=== PATIENT | female | born 1950 | race Caucasian/White ===

== ENCOUNTER 2018-02-23 13:33 | Emergency (ER) | payer BC, MEDICARE ==
[2018-02-23 13:47] VITALS: RESP 18; TEMP 98.2
--- NOTE | 2018-02-23 15:05 | US ---
EXAMINATION TYPE: US venous doppler duplex LE LT DATE OF EXAM: 02/23/2018 2:54 PM COMPARISON: US 04/19/2009 CLINICAL HISTORY: Pain, redness. Patient is currently taking blood thinners. History of DVT in left l eg 4-5 years ago per patient. Difficult exam due to small vein size and patient body habitus SIDE PERFORMED: Left TECHNIQUE: The lower extremity deep venous system is examined utilizing real time linear array sonog master with graded compression, doppler sonography and color-flow sonography. VESSELS IMAGED: External Iliac Vein (EIV) Common Femoral Vein Deep Femoral Vein Greater Saphenous Vein * Femoral Vein Popliteal Vein Small Saphenous Vein * Proximal Calf Veins (* superficial vessels) Left Leg: Positive for non-occluding DVT. There are some internal echos visualized within the left C FV, left femoral vein, and left popliteal vein. Left popliteal vein is unable to be fully compressed, however there is thready flow visualized within. Possible chronic DVT vs other IMPRESSION: Incompletely occluding left deep venous thrombosis involving the common femoral vein, le ft femoral vein, popliteal vein and extending into the proximal calf veins. Given this is incompletel y occlusive this may represent chronic thrombus however no prior imaging is available for comparison. Comparison with outside imaging would be beneficial to determine extent and location of the previous ly known left lower extremity thrombus.
--- NOTE | 2018-02-23 15:30 | ED ---
General Adult HPI - General Chief complaint: Extremity Problem,Nontraumatic Stated complaint: Left Leg Swelling Time Seen by Provider: 02/23/18 13:55 Source: patient, RN notes reviewed Mode of arrival: wheelchair Limitations: no limitations - History of Present Illness Initial comments: Patient 67-year-old female presents emergency room today with chief complaint of increased pain and redness to the left lower extremity. She states that symptoms started approximately a week ago. She states she noticed some redness around the top of the foot and ankle area and has spread up. She states more tender and painful. She denies any other complaints or symptoms at this time. Patient admits to history of DVT in this leg. She states she is on Xeralto. Patient denies any recent fever, chills, shortness of breath, chest pain, back pain, abdominal pain, nausea or vomiting, numbness or tingling, dysuria or hematuria, constipation or diarrhea, headaches or visual changes, or any other complaints. - Related Data Home Medications Medication Instructions Recorded Confirmed Albuterol Sulfate [Proair Hfa] 1 - 2 puff INHALATION RT-Q6H PRN 11/13/15 Budesonide-Formot 160-4.5 Mcg 2 puff INHALATION RT-BID 11/13/15 02/23/18 [Symbicort 160-4.5 Mcg Inhaler] Ergocalciferol [Vitamin D2] 50,000 unit PO Q15D 11/13/15 02/23/18 Furosemide [Lasix] 40 mg PO DAILY 11/13/15 02/23/18 Lisinopril [Zestril] 20 mg PO DAILY 11/13/15 02/23/18 Potassium Chloride [Klor-Con 10] 10 meq PO DAILY 11/13/15 02/23/18 Rivaroxaban [Xarelto] 20 mg PO HS 11/13/15 02/23/18 Tiotropium [place] [Spiriva] 1 cap INHALATION RT-DAILY 11/13/15 02/23/18 Levothyroxine Sodium 25 mcg PO DAILY 02/23/18 02/23/18 Levothyroxine Sodium 300 mcg PO DAILY 02/23/18 02/23/18 Simvastatin [Zocor] 20 mg PO HS 02/23/18 02/23/18 Previous Rx's Medication Instructions Recorded Cephalexin [Keflex] 500 mg PO Q12HR 10 Days cap 02/23/18 Sulfamethox-Tmp 800-160Mg [Bactrim 1 tab PO Q12HR #20 tab 02/23/18 DS 800-160 mg] Allergies Allergy/AdvReac Type Severity Reaction Status Date / Time ciprofloxacin Allergy Swelling Verified 02/23/18 13:56 tobramycin Allergy Swelling Verified 02/23/18 13:56 Review of Systems ROS Statement: Those systems with pertinent positive or pertinent negative responses have been documented in the HPI. ROS Other: All systems not noted in ROS Statement are negative. Past Medical History Past Medical History: Coronary Artery Disease (CAD), COPD, Hypertension, Thyroid Disorder Additional Past Medical History / Comment(s): dvt History of Any Multi-Drug Resistant Organisms: None Reported Past Surgical History: Orthopedic Surgery Additional Past Surgical History / Comment(s): jaw Past Psychological History: No Psychological Hx Reported Smoking Status: Never smoker Past Alcohol Use History: Rare Past Drug Use History: None Reported General Exam - General Exam Comments Initial Comments: General: The patient is awake and alert, in no distress, and does not appear acutely ill. Neck: The neck is supple, there is no tenderness or JVD. Cardiovascular: There is a regular rate and rhythm. No murmur, rub or gallop is appreciated. Respiratory: Lungs are clear to auscultation, respirations are non-labored, breath sounds are equal. No wheezes, stridor, rales, or rhonchi. Musculoskeletal: Increased redness erythema to the left lower extremity. Patient does show good range of motion. No bony tenderness on exam. Pedal pulses 2+. Strength 5/5. Neurological: A&O x 3. CN II-XII intact, There are no obvious motor or sensory deficits. Coordination appears grossly intact. Speech is normal. Skin: Increased redness erythema to the left lower extremity with increased swelling. Psychiatric: Normal mood and affect. Limitations: no limitations Course Vital Signs 02/23/18 02/23/18 13:41 15:24 Temperature 98.2 F Pulse Rate 91 72 Respiratory 18 18 Rate Blood Pressure 132/77 140/72 O2 Sat by Pulse 97 98 Oximetry Medical Decision Making - Medical Decision Making Case discussed in detail with attending physician Dr. Jacobo. Patient reexamined at this time shows no signs of distress resting comfortably. Patient 's ultrasound reviewed Shows incompletely occluding left deep venous thrombosis involving the common femoral vein, left from oral pain, popliteal vein and extending into the proximal calf veins. Given this isn't completely occlusive this may represent a chronic thrombus however no prior imaging is available for comparison. As read by the radiology Dr. Isaacs. Patient does have a history of a DVT in this leg. Case was discussed and seen by attending physician Dr. Jacobo. [place] the patient's no new DVT at this time. Currently ons were also being treated for DVT. Patient does have redness erythema to the left leg with some swelling is felt that it is infectious. Mild white count 11.6 Options were discussed with patient about admission to the hospital for further antibiotics. Patient states that she would rather try outpatient treatment. She was given doses of vagal myosin and Rocephin here in emergency room will be discharged home on Bactrim and Keflex. - Lab Data Result diagrams: 02/23/18 15:25 02/23/18 15:25 Lab Results 02/23/18 02/23/18 Range/Units 15:25 15:25 WBC 11.6 H (3.8-10.6) k/uL RBC 4.63 (3.80-5.40) m/uL Hgb 13.9 (11.4-16.0) gm/dL Hct 41.2 (34.0-46.0) % MCV 89.0 (80.0-100.0) fL MCH 30.0 (25.0-35.0) pg MCHC 33.8 (31.0-37.0) g/dL RDW 13.1 (11.5-15.5) % Plt Count 204 (150-450) k/uL Neutrophils % 75 % Lymphocytes % 16 % Monocytes % 6 % Eosinophils % 1 % Basophils % 0 % Neutrophils # 8.7 H (1.3-7.7) k/uL Lymphocytes # 1.8 (1.0-4.8) k/uL Monocytes # 0.7 (0-1.0) k/uL Eosinophils # 0.2 (0-0.7) k/uL Basophils # 0.0 (0-0.2) k/uL Sodium 143 (137-145) mmol/L Potassium 4.4 (3.5-5.1) mmol/L Chloride 103 (98-107) mmol/L Carbon Dioxide 28 (22-30) mmol/L Anion Gap 12 mmol/L BUN 13 (7-17) mg/dL Creatinine 0.70 (0.52-1.04) mg/dL Est GFR (CKD-EPI)AfAm >90 (>60 ml/min/1.73 sqM) Est GFR (CKD-EPI)NonAf >90 (>60 ml/min/1.73 sqM) Glucose 111 H (74-99) mg/dL Calcium 9.4 (8.4-10.2) mg/dL Total Bilirubin 0.6 (0.2-1.3) mg/dL AST 25 (14-36) U/L ALT 31 (9-52) U/L Alkaline Phosphatase 65 (38-126) U/L Total Protein 6.5 (6.3-8.2) g/dL Albumin 3.7 (3.5-5.0) g/dL Disposition Clinical Impression: Cellulitis, Chronic deep vein thrombosis (DVT) Disposition: HOME SELF-CARE Condition: Stable Instructions: Cellulitis (ED) Additional Instructions: Please use medication as discussed. Please follow-up with family doctor in the next 2 days of symptoms have not improved. Please return to emergency room if the symptoms increase or worsen or for any other concerns. Prescriptions: Cephalexin [Keflex] 500 mg PO Q12HR 10 Days cap Sulfamethox-Tmp 800-160Mg [Bactrim DS 800-160 mg] 1 tab PO Q12HR #20 tab Is patient prescribed a controlled substance at d/c from ED?: No Referrals: Yuriy Toscano DO [Primary Care Provider] - 1-2 days Time of Disposition: 16:42
[2018-02-23 15:43] LABS: Basophils % (A) 0 %; Eosinophils # (A) 0.2 k/uL (0-0.7); Eosinophils % (A) 1 %; HCT 41.2 % (34.0-46.0); HGB 13.9 gm/dL (11.4-16.0); Lymphocytes # (A) 1.8 k/uL (1.0-4.8); Lymphocytes % (A) 16 %; MCHC 33.8 g/dL (31.0-37.0); Mean Platelet Volume 7.4; Monocytes # (A) 0.7 k/uL (0-1.0); Monocytes % (A) 6 %; Neutrophils # (A) 8.7 k/uL (1.3-7.7); Neutrophils % (A) 75 %; Platelet Count 204 k/uL (150-450); RBC 4.63 m/uL (3.80-5.40); RDW 13.1 % (11.5-15.5); WBC 11.6 k/uL (3.8-10.6)
[2018-02-23] MEDS ORDERED: cefTRIAXone IN SWFI 1,000 MG/10 ML SYRINGE IVP STA (15:46)
[2018-02-23] MEDS ORDERED: VANCOMYCIN 1,000 MG in SODIUM CHLORIDE 0.9% 250 ML IVPB STA (15:46)
[2018-02-23] MEDS ORDERED: VANCOMYCIN 2,250 MG in SODIUM CHLORIDE 0.9% 500 ML IVPB STA (15:52)
[2018-02-23 15:57] LABS: ALT 31 U/L (9-52); AST 25 U/L (14-36); Albumin 3.7 g/dL (3.5-5.0); Alkaline Phosphatase 65 U/L (38-126); Anion Gap 12 mmol/L; Blood Urea Nitrogen 13 mg/dL (7-17); Calcium 9.4 mg/dL (8.4-10.2); Carbon Dioxide 28 mmol/L (22-30); Chloride 103 mmol/L (98-107); Glucose 111 mg/dL (74-99); Potassium 4.4 mmol/L (3.5-5.1); Sodium 143 mmol/L (137-145); Total Bilirubin 0.6 mg/dL (0.2-1.3); Total Protein 6.5 g/dL (6.3-8.2)
[2018-02-23 19:23] VITALS: BP 138/78; PULSE 80
== END 2018-02-23 19:22 | disposition home or self-care (01) ==
LOC: EC 13:33
DX: I82.512 Chronic embolism and thrombosis of left femoral vein (principal); L03.116 Cellulitis of left lower limb; J44.9 Chronic obstructive pulmonary disease, unspecified; I25.10 Atherosclerotic heart disease of native coronary artery without angina pectoris; I10 Essential (primary) hypertension; E07.9 Disorder of thyroid, unspecified; Z79.51 Long term (current) use of inhaled steroids; Z79.899 Other long term (current) drug therapy; Z88.1 Allergy status to other antibiotic agents
CPT/HCPCS: 36415; 80053; 85025; 87040; 93971; 99284; 96365; 96366 ×2; 96375; J3370; J0696

== ENCOUNTER 2018-02-28 15:48 | Inpatient (IN) | payer MEDICARE ==
[2018-02-28] MEDS ORDERED: SODIUM CHLORIDE 0.9% 1,000 ML IV STA (16:26)
[2018-02-28] MEDS ORDERED: MORPHINE SULFATE 2 MG/ML SYRINGE IV STA (16:26)
[2018-02-28] MEDS ORDERED: VANCOMYCIN IV PER PHARMACY 1 EACH MISC MISCELLANE PRN (16:26)
[2018-02-28] MEDS ORDERED: VANCOMYCIN 1,750 MG in SODIUM CHLORIDE 0.9% 250 ML IVPB ONE (16:45)
[2018-02-28 16:50] LABS: Basophils # (A) 0.1 k/uL (0-0.2); Basophils % (A) 1 %; Eosinophils # (A) 0.2 k/uL (0-0.7); Eosinophils % (A) 2 %; HCT 45.3 % (34.0-46.0); HGB 15.1 gm/dL (11.4-16.0); Lymphocytes # (A) 1.7 k/uL (1.0-4.8); Lymphocytes % (A) 20 %; MCH 30.2 pg (25.0-35.0); MCHC 33.4 g/dL (31.0-37.0); MCV 90.5 fL (80.0-100.0); Mean Platelet Volume 6.8; Monocytes # (A) 0.5 k/uL (0-1.0); Monocytes % (A) 6 %; Neutrophils # (A) 5.9 k/uL (1.3-7.7); Neutrophils % (A) 68 %; Platelet Count 255 k/uL (150-450); RBC 5.01 m/uL (3.80-5.40); RDW 13.7 % (11.5-15.5); WBC 8.7 k/uL (3.8-10.6)
[2018-02-28 17:01] LABS: Albumin 3.9 g/dL (3.5-5.0); Calcium 9.8 mg/dL (8.4-10.2); INR 1.2 (<1.2); Phosphorus 4.7 mg/dL (2.5-4.5); Potassium 5.3 mmol/L (3.5-5.1); Prothrombin Time 11.2 sec (9.0-12.0); Total Bilirubin 0.5 mg/dL (0.2-1.3); Total Protein 6.9 g/dL (6.3-8.2)
[2018-02-28 17:08] LABS: Creatine Kinase 31 U/L (30-135)
--- NOTE | 2018-02-28 17:15 | XR ---
EXAMINATION TYPE: XR tibia fibula LT DATE OF EXAM: 02/28/2018 COMPARISON: NONE HISTORY: Pain and redness TECHNIQUE: 4 views FINDINGS: There is mild spurring at the knee joint. There is subcutaneous edema around the lower leg. I see no fracture nor dislocation. There are some vascular calcification. IMPRESSION: Subcutaneous edema. No fracture seen. No evidence of osteomyelitis.
--- NOTE | 2018-02-28 17:19 | ED ---
General Adult HPI - General Chief complaint: Recheck/Abnormal Lab/Rx Stated complaint: Cellulitis Time Seen by Provider: 02/28/18 16:16 Source: patient, RN notes reviewed, old records reviewed Mode of arrival: wheelchair Limitations: physical limitation - History of Present Illness Initial comments: This is a 67-year-old female to the ER for evaluation. States she presents for evaluation regarding leg pain. Left leg pain. Patient has known chronic DVT left leg, on anticoagulation. Patient also admits to cellulitis, cellulitis times one week, she is on 2 antibiotics and an outpatient basis and states symptoms are worsening Leg swelling is progress and upper leg. - Related Data Home Medications Medication Instructions Recorded Confirmed Albuterol Sulfate [Proair Hfa] 1 - 2 puff INHALATION RT-Q6H PRN 11/13/15 Budesonide-Formot 160-4.5 Mcg 2 puff INHALATION RT-BID 11/13/15 02/28/18 [Symbicort 160-4.5 Mcg Inhaler] Ergocalciferol [Vitamin D2] 50,000 unit PO Q15D 11/13/15 02/28/18 Furosemide [Lasix] 40 mg PO DAILY 11/13/15 02/28/18 Lisinopril [Zestril] 20 mg PO DAILY 11/13/15 02/28/18 Potassium Chloride [Klor-Con 10] 10 meq PO DAILY 11/13/15 02/28/18 Rivaroxaban [Xarelto] 20 mg PO DAILY 11/13/15 02/28/18 Tiotropium [place] [Spiriva] 1 cap INHALATION RT-DAILY 11/13/15 02/28/18 Levothyroxine Sodium 25 mcg PO DAILY 02/23/18 02/28/18 Levothyroxine Sodium 300 mcg PO DAILY 02/23/18 02/28/18 Simvastatin [Zocor] 20 mg PO HS 02/23/18 02/28/18 Previous Rx's Medication Instructions Recorded Cephalexin [Keflex] 500 mg PO Q12HR 10 Days cap 02/23/18 Sulfamethox-Tmp 800-160Mg [Bactrim 1 tab PO Q12HR #20 tab 02/23/18 DS 800-160 mg] Allergies Allergy/AdvReac Type Severity Reaction Status Date / Time ciprofloxacin Allergy Swelling Verified 02/28/18 16:28 tobramycin Allergy Swelling Verified 02/28/18 16:28 Review of Systems ROS Statement: Those systems with pertinent positive or pertinent negative responses have been documented in the HPI. ROS Other: All systems not noted in ROS Statement are negative. Past Medical History Past Medical History: Coronary Artery Disease (CAD), COPD, Hypertension, Thyroid Disorder Additional Past Medical History / Comment(s): dvt History of Any Multi-Drug Resistant Organisms: None Reported Past Surgical History: Orthopedic Surgery Additional Past Surgical History / Comment(s): jaw Past Psychological History: No Psychological Hx Reported Smoking Status: Never smoker Past Alcohol Use History: Occasional Past Drug Use History: None Reported General Exam Limitations: physical limitation General appearance: alert, in no apparent distress Head exam: Present: atraumatic, normocephalic, normal inspection Eye exam: Present: normal appearance, PERRL, EOMI. Absent: scleral icterus, conjunctival injection, periorbital swelling ENT exam: Present: normal exam, mucous membranes moist Neck exam: Present: normal inspection. Absent: tenderness, meningismus, lymphadenopathy Respiratory exam: Present: normal lung sounds bilaterally. Absent: respiratory distress, wheezes, rales, rhonchi, stridor Cardiovascular Exam: Present: regular rate, normal rhythm, normal heart sounds. Absent: systolic murmur, diastolic murmur, rubs, gallop, clicks GI/Abdominal exam: Present: soft, normal bowel sounds. Absent: distended, tenderness, guarding, rebound, rigid Extremities exam: Present: normal inspection, full ROM, normal capillary refill , other (Left lower extremity edema erythema and cellulitis). Absent: tenderness, pedal edema, joint swelling, calf tenderness Back exam: Present: normal inspection Neurological exam: Present: alert, oriented X3, CN II-XII intact Psychiatric exam: Present: normal affect, normal mood Skin exam: Present: warm, dry, intact, normal color. Absent: rash Course Vital Signs 02/28/18 02/28/18 16:05 17:16 Temperature 98.3 F Pulse Rate 73 66 Respiratory 18 18 Rate Blood Pressure 138/77 141/60 O2 Sat by Pulse 97 99 Oximetry - Reevaluation(s) Reevaluation #1: 02/28/18 17:59 Medical record and ER visits including outpatient antibiotics are reviewed EKG Findings - EKG Comments: EKG Findings:: EKG shows normal sinus rhythm rate of 64, TN 146, QRS 74, QTc 412 Medical Decision Making - Medical Decision Making Male the ER for evaluation. Patient does say for evaluation regarding left lower extremity pain edema and erythema. Patient is on outpatient antibiotics to antibiotics Bactrim and Keflex times a week. No improvement - Lab Data Result diagrams: 02/28/18 16:40 02/28/18 16:40 Lab Results 02/28/18 02/28/18 02/28/18 Range/Units 16:40 16:40 16:40 WBC 8.7 (3.8-10.6) k/uL RBC 5.01 (3.80-5.40) m/uL Hgb 15.1 (11.4-16.0) gm/dL Hct 45.3 (34.0-46.0) % MCV 90.5 (80.0-100.0) fL MCH 30.2 (25.0-35.0) pg MCHC 33.4 (31.0-37.0) g/dL RDW 13.7 (11.5-15.5) % Plt Count 255 (150-450) k/uL Neutrophils % 68 % Lymphocytes % 20 % Monocytes % 6 % Eosinophils % 2 % Basophils % 1 % Neutrophils # 5.9 (1.3-7.7) k/uL Lymphocytes # 1.7 (1.0-4.8) k/uL Monocytes # 0.5 (0-1.0) k/uL Eosinophils # 0.2 (0-0.7) k/uL Basophils # 0.1 (0-0.2) k/uL PT (9.0-12.0) sec INR (<1.2) APTT (22.0-30.0) sec Sodium 140 (137-145) mmol/L Potassium 5.3 H (3.5-5.1) mmol/L Chloride 108 H (98-107) mmol/L Carbon Dioxide 21 L (22-30) mmol/L Anion Gap 11 mmol/L BUN 19 H (7-17) mg/dL Creatinine 1.00 (0.52-1.04) mg/dL Est GFR (CKD-EPI)AfAm 69 (>60 ml/min/1.73 sqM) Est GFR (CKD-EPI)NonAf 60 (>60 ml/min/1.73 sqM) Glucose 96 (74-99) mg/dL Calcium 9.8 (8.4-10.2) mg/dL Phosphorus 4.7 H (2.5-4.5) mg/dL Magnesium 2.0 (1.6-2.3) mg/dL Total Bilirubin 0.5 (0.2-1.3) mg/dL AST 20 (14-36) U/L ALT 30 (9-52) U/L Alkaline Phosphatase 79 (38-126) U/L Total Creatine Kinase 31 (30-135) U/L CK-MB (CK-2) 0.6 (0.0-2.4) ng/mL CK-MB (CK-2) Rel Index 1.9 Troponin I <0.012 (0.000-0.034) ng/mL Total Protein 6.9 (6.3-8.2) g/dL Albumin 3.9 (3.5-5.0) g/dL 02/28/18 Range/Units 16:40 WBC (3.8-10.6) k/uL RBC (3.80-5.40) m/uL Hgb (11.4-16.0) gm/dL Hct (34.0-46.0) % MCV (80.0-100.0) fL MCH (25.0-35.0) pg MCHC (31.0-37.0) g/dL RDW (11.5-15.5) % Plt Count (150-450) k/uL Neutrophils % % Lymphocytes % % Monocytes % % Eosinophils % % Basophils % % Neutrophils # (1.3-7.7) k/uL Lymphocytes # (1.0-4.8) k/uL Monocytes # (0-1.0) k/uL Eosinophils # (0-0.7) k/uL Basophils # (0-0.2) k/uL PT 11.2 (9.0-12.0) sec INR 1.2 H (<1.2) APTT 26.0 (22.0-30.0) sec Sodium (137-145) mmol/L Potassium (3.5-5.1) mmol/L Chloride (98-107) mmol/L Carbon Dioxide (22-30) mmol/L Anion Gap mmol/L BUN (7-17) mg/dL Creatinine (0.52-1.04) mg/dL Est GFR (CKD-EPI)AfAm (>60 ml/min/1.73 sqM) Est GFR (CKD-EPI)NonAf (>60 ml/min/1.73 sqM) Glucose (74-99) mg/dL Calcium (8.4-10.2) mg/dL Phosphorus (2.5-4.5) mg/dL Magnesium (1.6-2.3) mg/dL Total Bilirubin (0.2-1.3) mg/dL AST (14-36) U/L ALT (9-52) U/L Alkaline Phosphatase (38-126) U/L Total Creatine Kinase (30-135) U/L CK-MB (CK-2) (0.0-2.4) ng/mL CK-MB (CK-2) Rel Index Troponin I (0.000-0.034) ng/mL Total Protein (6.3-8.2) g/dL Albumin (3.5-5.0) g/dL - Radiology Data Radiology results: report reviewed (X-ray left lower Shorty negative), image reviewed Disposition Clinical Impression: Cellulitis, Failure of outpatient treatment Disposition: ADMITTED IP TO THIS HOSP Condition: Fair Is patient prescribed a controlled substance at d/c from ED?: No Referrals: Yuriy Toscano DO [Primary Care Provider] - 1-2 days
[2018-02-28 17:20] LABS: Creatine Kinase MB 0.6 ng/mL (0.0-2.4); Troponin I <0.012 ng/mL (0.000-0.034)
[2018-02-28] MEDS ORDERED: MORPHINE SULFATE 2 MG/ML SYRINGE IVP PRN (20:32)
[2018-02-28] MEDS ORDERED: ALBUTEROL NEBULIZED 2.5 MG/3 ML INHALATION PRN (23:16)
[2018-02-28] MEDS ORDERED: ACETAMINOPHEN TAB 325 MG TAB PO PRN (23:22)
[2018-02-28] MEDS ORDERED: ATORVASTATIN 10 MG TAB PO SCH (23:30)
[2018-03-01] MEDS: LEVOTHYROXINE 100 MCG TAB PO SCH (06:21)
[2018-03-01] MEDS: LEVOTHYROXINE 25 MCG TAB PO SCH (06:21)
[2018-03-01] MEDS: IPRATROPIUM 0.5 MG/2.5 ML NEBU INHALATION SCH ×4 (08:10→19:56)
[2018-03-01] MEDS: SYMBICORT 160-4.5 MCG INHALER INHALATION SCH ×2 (08:10→19:56)
[2018-03-01] MEDS: LISINOPRIL 20 MG TAB PO SCH (08:18)
[2018-03-01] MEDS: FUROSEMIDE 40 MG TAB PO SCH (08:18)
[2018-03-01] MEDS: RIVAROXABAN 20 MG TAB PO SCH (08:18)
[2018-03-01] MEDS: POTASSIUM CHLORIDE ER 10 MEQ TAB.ER.PRT PO SCH (08:18)
[2018-03-01] MEDS ORDERED: VANCOMYCIN 1,750 MG in SODIUM CHLORIDE 0.9% 250 ML IVPB SCH (09:00)
[2018-03-01] MEDS: FAMOTIDINE 20 MG TAB PO SCH ×2 (16:50→21:46)
[2018-03-01] MEDS: NAPROXEN 250 MG TAB PO SCH ×2 (16:50→21:46)
[2018-03-01] MEDS: LACTATED RINGERS 1,000 ML IV SCH (17:03)
[2018-03-01] MEDS: CLINDAMYCIN 300 MG in DEXTROSE 5% IN WATER 50 ML IVPB SCH ×2 (17:04)
--- NOTE | 2018-03-01 17:29 | HP ---
HISTORY AND PHYSICAL DATE OF ADMISSION: 02/28/2018. DATE OF SERVICE: 03/01/2018 PRESENTING COMPLAINT: Left leg pain. HISTORY OF PRESENTING COMPLAINT: This is a 67-year-old patient who follows with Dr. Toscano. Chronic stable medical conditions include coronary artery disease, COPD, hyperlipidemia, hypertension and chronic DVT in left lower extremity. For 2 weeks, the patient has been having increasing pain in the left leg and patient did present to the ER on 02/23/2018. The patient was found to have some chronic DVT, not inclusive, and it was decided to send the patient home with some antibiotic and continue on Xarelto. The patient returns still having pain in the left leg and she states she is having some trouble walking. There is pain, swelling and redness. No fever or chills. REVIEW OF SYSTEMS: CONSTITUTIONAL: None. HEENT: None. RESPIRATORY: None. CARDIOVASCULAR: None. GASTROINTESTINAL: None. GENITOURINARY: None. MUSCULOSKELETAL: None DERMATOLOGICAL: Some redness just above the left ankle. HEMATOLOGIC: None. LYMPHATICS: None. PSYCHIATRY: None. NEUROLOGICAL: None. PAST MEDICAL HISTORY: Coronary artery disease, COPD, hyperlipidemia, hypertension, DVT, hypothyroid. 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 SOCIAL HISTORY: Patient smoked a pack a day for 48 years, stopped 2 years ago. Alcohol occasionally. Lives with her brother. FAMILY HISTORY: Father of suicide. HOME MEDICATIONS: 1. Spiriva 1 capsule inhalation daily. 2. Bactrim DS 1 tablet p.o. q.12. 3. Zocor 20 mg q.h.s. 4. Xarelto 20 mg p.o. daily. 5. Potassium 10 mEq p.o. daily. 6. Zestril 20 mg p.o. daily. 7. Levothyroxine 325 p.o. daily. 8. Lasix 40 mg p.o. daily. 9. Vitamin D2 50,000 units every 15 days. 10.Keflex 500 mg q.12h. 11.Symbicort 160/4.5, 2 puffs b.i.d. 12.Albuterol 1-2 puffs every 6 hours p.r.n. ALLERGIES: To CIPRO and TOBRAMYCIN. EXAMINATION: Temperature 97.6, pulse 72, respirations 16, blood pressure 132/52, pulse ox 98% on 2L. GENERAL APPEARANCE: Average built, sitting up, not in distress. EYES: Pupils equal. Conjunctivae normal. HEENT: External appearance of nose and ears normal. Oral cavity normal. NECK: JVD not raised. Mass not palpable. RESPIRATORY: Effort normal. LUNGS: Decreased breath sounds. CARDIOVASCULAR: First and second sounds normal. Minimal edema. ABDOMEN: Distended, soft. Liver and spleen not palpable. LYMPHATIC: No lymph nodes palpable in neck or axillae. PSYCHIATRY: Alert and oriented x3. Mood and affect normal. NEUROLOGICAL: Pupils equal. Cranial nerves grossly intact. Power and sensation grossly intact. EXTREMITIES: Left ankle is slightly swollen compared to the right. There is some area of redness and tenderness around the left ankle area and just above that. INVESTIGATIONS: White count 8.7, hemoglobin 15.1. Potassium 5.3, BUN 19, creatinine 1.0. The patient's Doppler ultrasound from 02/23/2018 shows positive for nonoccluding DVT and left common femoral, femoral vein, left popliteal vein. ASSESSMENT: 1. Acute cellulitis of the left ankle. 2. Chronic deep venous thrombosis, left lower extremity, for which patient is on Xarelto. 3. Coronary artery disease. 4. Chronic obstructive pulmonary disease in an ex-smoker. 5. Hyperlipidemia. 6. Essential hypertension. 7. Hypothyroidism. PLAN: Patient will be started on IV clindamycin. Will give Silvadene cream with Kerlix and Gume wrap to the left ankle. The patient also may have secondary tendon dysfunction in the area. Will use a short course of NSAIDs with GI protection of any anti- inflammatory affect. Care was discussed with the patient. Questions were answered. MMODL / IJN: [id number] /
[2018-03-01] MEDS: ATORVASTATIN 10 MG TAB PO SCH (21:46)
[2018-03-02] MEDS: CLINDAMYCIN 300 MG in DEXTROSE 5% IN WATER 50 ML IVPB SCH ×10 (00:10→23:31)
[2018-03-02] MEDS: LEVOTHYROXINE 100 MCG TAB PO SCH (06:09)
[2018-03-02] MEDS: LEVOTHYROXINE 25 MCG TAB PO SCH (06:09)
[2018-03-02] MEDS: FAMOTIDINE 20 MG TAB PO SCH ×2 (08:01→20:38)
[2018-03-02] MEDS: LISINOPRIL 20 MG TAB PO SCH (08:02)
[2018-03-02] MEDS: POTASSIUM CHLORIDE ER 10 MEQ TAB.ER.PRT PO SCH (08:02)
[2018-03-02] MEDS: RIVAROXABAN 20 MG TAB PO SCH (08:02)
[2018-03-02] MEDS: FUROSEMIDE 40 MG TAB PO SCH (08:02)
[2018-03-02] MEDS: NAPROXEN 250 MG TAB PO SCH ×3 (08:02→20:38)
[2018-03-02] MEDS: IPRATROPIUM 0.5 MG/2.5 ML NEBU INHALATION SCH ×4 (08:21→19:30)
[2018-03-02] MEDS: SYMBICORT 160-4.5 MCG INHALER INHALATION SCH ×2 (08:21→19:30)
[2018-03-02] MEDS: LACTATED RINGERS 1,000 ML IV SCH (12:34)
--- NOTE | 2018-03-02 19:48 | PN ---
PROGRESS NOTE DATE OF SERVICE: 03/02/18 PRESENTING COMPLAINT: Acute left ankle cellulitis. INTERVAL HISTORY: This patient presented with acute left ankle cellulitis and possibly tendon dysfunction, getting antibiotics. Gume wrap in place. Feeling better. REVIEW OF SYSTEMS: Done for constitutional, cardiovascular, GI, pulmonary; relevant findings as above. CURRENT MEDICATIONS: Reviewed that include IV clindamycin. PHYSICAL EXAMINATION: Temperature 97, pulse 66, respiratory 18, blood pressure 135/69, pulse ox 95% on room air. GENERAL APPEARANCE: Lying in bed, comfortable. EYES: Pupils equal. Conjunctivae normal. HEENT: External appearance of nose and ears normal. Oral cavity normal. NECK: JVD not raised. Mass not palpable. RESPIRATORY: Effort normal. Lungs, decreased breath sounds. CARDIOVASCULAR: First and second sounds, no edema. ABDOMEN: Soft, nontender. Liver and spleen not palpable. EXTREMITIES: Left ankle in a dressing. INVESTIGATIONS: No blood work from today. ASSESSMENT: 1. Acute cellulitis left ankle. 2. Chronic deep venous thrombosis left lower extremity for which patient is chronically on Xarelto. 3. Coronary artery disease. 4. Chronic obstructive pulmonary disease in an ex-smoker. 5. Hyperlipidemia. 6. Essential hypertension. 7. Hypothyroidism. PLAN: Continue current medication and treatment plan. The patient seems to be feeling better. Hoping patient can go home tomorrow. Encourage the patient to ambulate. MMODL / IJN: [id number] /
[2018-03-02] MEDS: ATORVASTATIN 10 MG TAB PO SCH (20:38)
[2018-03-03] MEDS: LEVOTHYROXINE 100 MCG TAB PO SCH (05:59)
[2018-03-03] MEDS: LEVOTHYROXINE 25 MCG TAB PO SCH (05:59)
[2018-03-03] MEDS: CLINDAMYCIN 300 MG in DEXTROSE 5% IN WATER 50 ML IVPB SCH ×4 (06:03→12:13)
[2018-03-03] MEDS: SYMBICORT 160-4.5 MCG INHALER INHALATION SCH ×2 (07:35→19:43)
[2018-03-03] MEDS: IPRATROPIUM 0.5 MG/2.5 ML NEBU INHALATION SCH ×4 (07:36→19:42)
[2018-03-03 08:42] LABS: Basophils # (A) 0.1 k/uL (0-0.2); Basophils % (A) 1 %; Eosinophils # (A) 0.2 k/uL (0-0.7); Eosinophils % (A) 4 %; HCT 40.9 % (34.0-46.0); HGB 13.5 gm/dL (11.4-16.0); Lymphocytes # (A) 1.5 k/uL (1.0-4.8); Lymphocytes % (A) 25 %; MCH 29.9 pg (25.0-35.0); MCHC 32.9 g/dL (31.0-37.0); Mean Platelet Volume 6.7; Monocytes # (A) 0.3 k/uL (0-1.0); Monocytes % (A) 4 %; Neutrophils # (A) 3.7 k/uL (1.3-7.7); Neutrophils % (A) 63 %; Platelet Count 195 k/uL (150-450); RDW 13.8 % (11.5-15.5)
[2018-03-03] MEDS: NAPROXEN 250 MG TAB PO SCH ×3 (08:53→20:23)
[2018-03-03] MEDS: FAMOTIDINE 20 MG TAB PO SCH ×2 (08:53→20:23)
[2018-03-03] MEDS: FUROSEMIDE 40 MG TAB PO SCH (08:55)
[2018-03-03] MEDS: RIVAROXABAN 20 MG TAB PO SCH (08:55)
[2018-03-03] MEDS: LISINOPRIL 20 MG TAB PO SCH (08:55)
[2018-03-03] MEDS: POTASSIUM CHLORIDE ER 10 MEQ TAB.ER.PRT PO SCH (08:55)
[2018-03-03 08:56] LABS: Calcium 9.7 mg/dL (8.4-10.2); Potassium 4.8 mmol/L (3.5-5.1)
[2018-03-03] MEDS: LACTATED RINGERS 1,000 ML IV SCH (09:33)
[2018-03-03] MEDS ORDERED: VANCOMYCIN IV PER PHARMACY 1 EACH MISC MISCELLANE PRN (13:29)
[2018-03-03] MEDS ORDERED: VANCOMYCIN 1,250 MG in SODIUM CHLORIDE 0.9% 250 ML IVPB STA (13:30)
[2018-03-03] MEDS: VANCOMYCIN 1,750 MG in SODIUM CHLORIDE 0.9% 250 ML IVPB SCH (14:47)
--- NOTE | 2018-03-03 14:53 | P.PN ---
Subjective Progress Note Date: 03/03/18 Progress note being dictated for Dr. Khan. This is a 67-year-old female admitted with possible cellulitis left lower extremity, with history of DVT of the affected extremity and multiple other medical issues. Patient states on admission extremity was hot to touch; but not now. Patient states she had been on both Keflex and Bactrim DS 6 days prior to admission, without improvement. Complains of left heel heel pain with weight bearing. Currently maintained on Cleocin .Denies chest pain, palpitations or increasing shortness of breath.Afebrile. Objective - Vital Signs Vital signs: Vital Signs Temp 98.0 F 03/03/18 13:43 Pulse 101 H 03/03/18 13:43 Resp 20 03/03/18 13:43 BP 98/64 03/03/18 13:43 Pulse Ox 96 03/03/18 13:43 Intake & Output 03/02/18 03/03/18 03/03/18 18:59 06:59 18:59 Intake Total 500 50 Output Total 200 Balance 500 -150 Intake: Intake, IV Titration 50 Amount Clindamycin 300 mg In 50 Dextrose 5% in Water 50 ml @ 100 mls/hr IVPB Q6HR [facility] Rx#:[id number] Oral 500 Output: Urine 200 Other: # Voids 2 2 3 - Exam PHYSICAL EXAM: VITAL SIGNS: As above GENERAL: Sitting up in bed, no acute distress HEENT: Conjunctivae normal. eyes normal. Oral mucosa moist NECK: No JVD. No thyroid enlargement. No LNs CARDIOVASCULAR: S1, S2 muffled. No murmur RESPIRATION: Breath sounds diminished in the bases. No rhonchi or crackles. No bronchial breathing. ABDOMEN: Soft, nontender . No guarding. no masses palpable. Bowel sounds heard. LEGS: Bilateral lower extremity pigmentation discoloration, purplish with left lower extremity increased redness, edema, tenderness-not hot to touch PSYCHIATRY: Alert and oriented -3, mood and affect normal. NERVOUS SYSTEM: Cranial N 2-12 grossly normal. Moves all 4 limbs. Diffuse weakness No focal deficits. Lymphatic system. No LN neck axilla or groin. - Labs CBC & Chem 7: 03/03/18 08:08 03/03/18 08:08 Labs: Abnormal Lab Results - Last 24 Hours (Table) 03/03/18 Range/Units 08:08 BUN 22 H (7-17) mg/dL Glucose 111 H (74-99) mg/dL Microbiology - Last 24 Hours (Table) 02/28/18 16:40 Blood Culture - Preliminary Blood No Growth after 48 hours Assessment and Plan Assessment: 1. Possible acute left lower extremity cellulitis, failed outpatient treatment. 2. Chronic DVT of left lower extremity, on Xarelto 3. Chronic vascular disease 4. COPD 5. History of nicotine dependence 6. Essential hypertension 7. Hypothyroidism Plan: Continue current medication regime ,monitoring and symptomatic treatment. As mentioned above changed antibiotics, discontinued clindamycin and initiated vancomycin. Infectious disease consulted. The impression and plan of care has been dictated as directed. : I performed a history and examination of this patient, discussed the same with the dictator. I agree with the dictator's note ,documented as a scribe. Any additional findings or plans will be noted.
[2018-03-03] MEDS: ATORVASTATIN 10 MG TAB PO SCH (20:23)
[2018-03-04] MEDS: VANCOMYCIN 1,750 MG in SODIUM CHLORIDE 0.9% 250 ML IVPB SCH ×2 (05:48→21:29)
[2018-03-04] MEDS: LEVOTHYROXINE 100 MCG TAB PO SCH (05:51)
[2018-03-04] MEDS: LACTATED RINGERS 1,000 ML IV SCH ×2 (05:51→14:24)
[2018-03-04] MEDS: LEVOTHYROXINE 25 MCG TAB PO SCH (05:51)
[2018-03-04] MEDS: IPRATROPIUM 0.5 MG/2.5 ML NEBU INHALATION SCH ×4 (07:42→20:41)
[2018-03-04] MEDS: SYMBICORT 160-4.5 MCG INHALER INHALATION SCH ×2 (07:43→20:41)
[2018-03-04] MEDS: NAPROXEN 250 MG TAB PO SCH ×3 (09:21→21:28)
[2018-03-04] MEDS: FAMOTIDINE 20 MG TAB PO SCH ×2 (09:22→21:28)
[2018-03-04] MEDS: FUROSEMIDE 40 MG TAB PO SCH (09:23)
[2018-03-04] MEDS: POTASSIUM CHLORIDE ER 10 MEQ TAB.ER.PRT PO SCH (09:23)
[2018-03-04] MEDS: RIVAROXABAN 20 MG TAB PO SCH (09:23)
[2018-03-04] MEDS: LISINOPRIL 20 MG TAB PO SCH (09:23)
[2018-03-04 11:19] LABS: Anion Gap 9 mmol/L; Blood Urea Nitrogen 25 mg/dL (7-17); Calcium 9.4 mg/dL (8.4-10.2); Carbon Dioxide 28 mmol/L (22-30); Chloride 105 mmol/L (98-107); Glucose 108 mg/dL (74-99); Potassium 4.5 mmol/L (3.5-5.1); Sodium 142 mmol/L (137-145)
--- NOTE | 2018-03-04 16:59 | CONS ---
CONSULTATION DATE OF SERVICE: 03/04/2018 REASON FOR CONSULTATION: Left leg cellulitis. HISTORY OF PRESENT ILLNESS: The patient is a 67-year-old female who apparently has been dealing with left leg swelling and redness that has been going on for almost 2 weeks now. The patient previously presented to the [facility] ER about a week ago, when the patient was evaluated and diagnosed with cellulitis. The patient was treated with Bactrim DS and Keflex. The patient took antibiotics for about 4 days, did not have any improvement; hence she came back for the same evaluation, where apparently the patient says she did have some x-rays done and was told everything was normal and was to continue with the antibiotic. The patient had persistent symptoms and hence she presented back to the ER on 02/28/2018. At that time the patient was evaluated. She did have an x-ray which showed some subcutaneous edema, but no evidence of any fracture or osteomyelitis. She was diagnosed with cellulitis this admission and admitted to hospital. She was started on clindamycin. However, the patient was noticed to have persistent swelling and redness yesterday. That prompted the antibiotic to be switched over to vancomycin, Pharmacy to dose, and Infectious Disease was consulted for further recommendation regarding antibiotic therapy. As of this morning, the patient has been afebrile. The patient denies having any chest pain or shortness of breath or any cough. No abdominal pain or any diarrhea. Pain to the left leg is more of a dull aching pain, about 5/10, and no radiation. Currently with no skin breakdown or any drainage. REVIEW OF SYSTEMS: CONSTITUTIONAL: Positive for weakness. Some chills but no high-grade fever has been recorded. EYES: No complaint. ENT: No complaint. RESPIRATORY: Some shortness of breath but no cough. CARDIOVASCULAR: No complaint. GENITOURINARY: No complaint. GASTROINTESTINAL: No complaint. MUSCULOSKELETAL: As per HPI. INTEGUMENTARY: As per HPI. PSYCHOLOGICAL: No complaint. ENDOCRINE: No complaint. NEUROLOGICAL: No complaint. PAST MEDICAL HISTORY: 1. Coronary artery disease. 2. COPD. 3. Hypertension. 4. Hypothyroidism. PAST SURGICAL HISTORY: Orthopedic surgery to the jaw. SOCIAL HISTORY: No history of smoking. Occasionally drinks. No drug use. FAMILY HISTORY: No pertinent findings noticed. ALLERGIES: CIPROFLOXACIN and TOBRAMYCIN. CURRENT MEDICATIONS: 1. Tylenol. 2. Ventolin. 3. Lipitor. 4. Symbicort. 5. Vitamin D2. 6. Pepcid. 7. Lasix. 8. Atrovent. 9. Lactated Ringers. 10.Synthroid. 11.Zestril. 12.Morphine sulfate. 13.Naproxen. 14.K-Dur. 15.Xarelto. 16.Vancomycin 1750 q.16 hours. PHYSICAL EXAMINATION: Blood pressure is 100/48, pulse of 72, temperature 98.7. She is 94% on room air. General description is an elderly female lying in bed in no distress. No tachypnea or accessory muscle of respiration use. HEENT examination shows no pallor or scleral icterus. Oral mucosa membrane is dry. No pharyngeal erythema or thrush. NECK: Trachea is central. No thyromegaly. RESPIRATORY SYSTEM: Unlabored breathing. Clear to auscultation anteriorly. No wheeze or crackle. HEART: S1, S2. Regular rate and rhythm. No added sound. ABDOMEN: Soft. No tenderness. No guarding or rigidity. EXTREMITIES: Left leg did have minimal erythema, slightly warm to touch. No fluctuation or induration or any wound was noticed or any drainage. Neurologically patient is awake, alert, oriented x3. Mood and affect normal. LABS: Hemoglobin 13.5, white count 6.0, BUN of 25, creatinine 0.77. Blood culture obtained; currently pending. DIAGNOSTIC IMPRESSION AND PLAN: Patient with acute left lower extremity cellulitis in a patient who seemed to have failed response to the outpatient Bactrim as well as Keflex therapy and did not report too much with IV clindamycin that was given to her for 24 hours, now with subsequent improvement on the vancomycin, more likely pointing toward possible methicillin- resistant Staphylococcus aeruginosa cellulitis. PLAN: 1. We would recommend keeping the patient on IV vancomycin for at least 24 to 48 hours. 2. Keep the left leg elevated with light Gume wrap to keep the swelling down. 3. Depending upon her clinical response as well as cultures, will determine her discharge antibiotic. Thank you for this consultation. Will follow this patient along with you. MMODL / IJN: [id number] /
--- NOTE | 2018-03-04 18:25 | P.PN ---
Subjective Progress Note Date: 03/04/18 Progress note being dictated for Dr. Khan. This is a 67-year-old female admitted with possible cellulitis left lower extremity, with history of DVT of the affected extremity and multiple other medical issues. Patient states on admission extremity was hot to touch; but not now. Patient states she had been on both Keflex and Bactrim DS 6 days prior to admission, without improvement. Complains of left heel heel pain with weight bearing. Currently maintained on Cleocin .Denies chest pain, palpitations or increasing shortness of breath.Afebrile. 03/04/2018 maintained on vancomycin. Significant clinical improvement, with decreased redness, edema and tenderness. Evaluated by infectious disease with recommendations pending. Afebrile. Chest pain, palpitations or shortness of breath. Objective - Vital Signs Vital signs: Vital Signs Temp 98.7 F 03/04/18 14:51 Pulse 72 03/04/18 15:57 Resp 18 03/04/18 14:51 BP 100/48 03/04/18 14:51 Pulse Ox 94 L 03/04/18 14:51 Intake & Output 03/03/18 03/04/18 03/04/18 18:59 06:59 18:59 Intake Total 350 600 Output Total 600 Balance -250 600 Weight 73.482 kg 101.5 kg Intake: Intake, IV Titration 350 Amount Clindamycin 300 mg In 100 Dextrose 5% in Water 50 ml @ 100 mls/hr IVPB Q6HR [facility] Rx#:[id number] Vancomycin 1,750 mg In 250 Sodium Chloride 0.9% 250 ml @ 125 mls/hr IVPB Q16H [facility] Rx#:[id number] Oral 600 Output: Urine 600 Other: Voiding Method Toilet # Voids 1 1 3 - Exam PHYSICAL EXAM: VITAL SIGNS: As above GENERAL: Sitting up in bed, no acute distress HEENT: Conjunctivae normal. eyes normal. Oral mucosa moist NECK: No JVD. No thyroid enlargement. No LNs CARDIOVASCULAR: S1, S2 muffled. No murmur RESPIRATION: Breath sounds diminished in the bases. No rhonchi or crackles. No bronchial breathing. ABDOMEN: Soft, nontender . No guarding. no masses palpable. Bowel sounds heard. LEGS: Bilateral lower extremity pigmentation discoloration, purplish with left lower extremity increased redness, edema, tenderness-not hot to touch-improving PSYCHIATRY: Alert and oriented -3, mood and affect normal. NERVOUS SYSTEM: Cranial N 2-12 grossly normal. Moves all 4 limbs. Diffuse weakness No focal deficits. Lymphatic system. No LN neck axilla or groin. - Labs CBC & Chem 7: 03/03/18 08:08 03/04/18 09:28 Labs: Abnormal Lab Results - Last 24 Hours (Table) 03/04/18 Range/Units 09:28 BUN 25 H (7-17) mg/dL Glucose 108 H (74-99) mg/dL Microbiology - Last 24 Hours (Table) 02/28/18 16:40 Blood Culture - Preliminary Blood No Growth after 72 hours Assessment and Plan Assessment: 1. Acute left lower extremity cellulitis, failed outpatient treatment. 2. Chronic DVT of left lower extremity, on Xarelto 3. Chronic vascular disease 4. COPD 5. History of nicotine dependence 6. Essential hypertension 7. Hypothyroidism Plan: Continue current medication regime ,monitoring and symptomatic treatment. Maintaining IV antibiotics of vancomycin as per infectious disease for another 24-48 hours. Blood cultures pending. The impression and plan of care has been dictated as directed. : I performed a history and examination of this patient, discussed the same with the dictator. I agree with the dictator's note ,documented as a scribe. Any additional findings or plans will be noted.
[2018-03-04] MEDS: ATORVASTATIN 10 MG TAB PO SCH (21:28)
[2018-03-05] MEDS: LACTATED RINGERS 1,000 ML IV SCH ×2 (00:54→20:48)
[2018-03-05] MEDS: LEVOTHYROXINE 25 MCG TAB PO SCH (05:45)
[2018-03-05] MEDS: LEVOTHYROXINE 100 MCG TAB PO SCH (05:45)
[2018-03-05] MEDS: POTASSIUM CHLORIDE ER 10 MEQ TAB.ER.PRT PO SCH (07:59)
[2018-03-05] MEDS: FUROSEMIDE 40 MG TAB PO SCH (07:59)
[2018-03-05] MEDS: LISINOPRIL 20 MG TAB PO SCH (07:59)
[2018-03-05] MEDS: RIVAROXABAN 20 MG TAB PO SCH (07:59)
[2018-03-05] MEDS: FAMOTIDINE 20 MG TAB PO SCH ×2 (07:59→20:47)
[2018-03-05] MEDS: NAPROXEN 250 MG TAB PO SCH ×3 (07:59→20:47)
[2018-03-05] MEDS: SYMBICORT 160-4.5 MCG INHALER INHALATION SCH ×2 (08:33→19:26)
[2018-03-05] MEDS: IPRATROPIUM 0.5 MG/2.5 ML NEBU INHALATION SCH ×4 (08:34→19:26)
[2018-03-05 09:43] LABS: Calcium 9.7 mg/dL (8.4-10.2); Potassium 4.4 mmol/L (3.5-5.1)
[2018-03-05] MEDS: VANCOMYCIN 1,750 MG in SODIUM CHLORIDE 0.9% 250 ML IVPB SCH (13:14)
--- NOTE | 2018-03-05 14:36 | PN ---
PROGRESS NOTE DATE OF SERVICE: 03/05/2018. REASON FOR FOLLOWUP: Left leg cellulitis. INTERVAL HISTORY: The patient is currently afebrile. She is breathing comfortably, left leg swelling and redness have improved per patient. No chest pain. No abdominal pain, no diarrhea. EXAMINATION: Blood pressure 139/58 with a pulse of 54, temperature 97.6. She is 95% on room air. General description is an elderly female lying in bed in no distress. RESPIRATORY SYSTEM: Unlabored breathing. Clear to auscultation. HEART: S1, S2. Regular rate and rhythm. ABDOMEN: Soft, no tenderness. Left leg swelling and redness have improved. LABS: BUN of 23, creatinine 0.80. Blood culture so far negative. DIAGNOSTIC IMPRESSION AND PLAN: Patient with acute left lower extremity cellulitis failing outpatient Bactrim and Keflex therapy. Currently on vancomycin. Did show overall improvement. As the patient continues to improve to finish therapy with oral mg twice a day for another 7 to 10 days with close outpatient followup. MMODL / IJN: [id number] /
--- NOTE | 2018-03-05 15:24 | P.PN ---
Subjective Progress Note Date: 03/05/18 Progress note being dictated for Dr. Khan. This is a 67-year-old female admitted with possible cellulitis left lower extremity, with history of DVT of the affected extremity and multiple other medical issues. Patient states on admission extremity was hot to touch; but not now. Patient states she had been on both Keflex and Bactrim DS 6 days prior to admission, without improvement. Complains of left heel heel pain with weight bearing. Currently maintained on Cleocin .Denies chest pain, palpitations or increasing shortness of breath.Afebrile. 03/04/2018 maintained on vancomycin. Significant clinical improvement, with decreased redness, edema and tenderness. Evaluated by infectious disease with recommendations pending. Afebrile. Chest pain, palpitations or shortness of breath. 03/05/2018 no overnight events. Ambulating easier to and from bathroom, tolerated exertion well. Continued improvement of affected extremity on IV vancomycin. Afebrile. Good diet intake, denies nausea vomiting diarrhea. Denies abdominal pain. Denies chest pain, palpitations or increased shortness of breath. Denies lightheadedness dizziness or focal deficits. Objective - Vital Signs Vital signs: Vital Signs Temp 97.6 F 03/05/18 07:05 Pulse 70 03/05/18 11:55 Resp 16 03/05/18 07:05 BP 139/58 03/05/18 07:05 Pulse Ox 95 03/05/18 07:05 Intake & Output 03/04/18 03/05/18 03/05/18 18:59 06:59 18:59 Intake Total 600 1000 Balance 600 1000 Weight 101.5 kg 101.5 kg Intake: IV 400 Lactated Ringers 1,000 ml 400 @ 50 mls/hr IV .Q20H [facility] Rx#:[id number] Oral 600 600 Other: Voiding Method Toilet Toilet # Voids 3 2 1 # Bowel Movements 1 - Exam PHYSICAL EXAM: VITAL SIGNS: As above GENERAL: Sitting up in bed, no acute distress HEENT: Conjunctivae normal. eyes normal. Oral mucosa moist NECK: No JVD. No thyroid enlargement. No LNs CARDIOVASCULAR: S1, S2 muffled. No murmur RESPIRATION: Breath sounds diminished in the bases. No rhonchi or crackles. ABDOMEN: Soft, nontender . No guarding. no masses palpable. Positive Bowel sounds. LEGS: Bilateral lower extremity pigmentation discoloration, less purplish hue with left lower extremity decreased redness, edema, tenderness-continued improvement. PSYCHIATRY: Alert and oriented -3, mood and affect normal. NERVOUS SYSTEM: Cranial N 2-12 grossly normal. Moves all 4 limbs. Diffuse weakness No focal deficits. Lymphatic system. No LN neck axilla or groin. Microbiology 02/28/18 16:40 Blood Blood Culture - Preliminary No Growth after 96 hours - Labs CBC & Chem 7: 03/03/18 08:08 03/05/18 08:56 Labs: Abnormal Lab Results - Last 24 Hours (Table) 03/05/18 Range/Units 08:56 BUN 23 H (7-17) mg/dL Glucose 145 H (74-99) mg/dL Microbiology - Last 24 Hours (Table) 02/28/18 16:40 Blood Culture - Preliminary Blood No Growth after 96 hours Assessment and Plan Assessment: 1. Acute left lower extremity cellulitis, failed outpatient treatment. 2. Chronic DVT of left lower extremity, on Xarelto 3. Chronic vascular disease 4. COPD 5. History of nicotine dependence 6. Essential hypertension 7. Hypothyroidism Plan: Continue current medication regime ,monitoring and symptomatic treatment. Maintaining IV antibiotics of vancomycin as per infectious disease for another 24hours. Discharge planning in progress for tomorrow, pending infectious disease clearance. The impression and plan of care has been dictated as directed. : I performed a history and examination of this patient, discussed the same with the dictator. I agree with the dictator's note ,documented as a scribe. Any additional findings or plans will be noted.
[2018-03-05] MEDS: ATORVASTATIN 10 MG TAB PO SCH (20:47)
[2018-03-05 22:38] VITALS: RESP 16
[2018-03-06] MEDS ORDERED: VANCOMYCIN TROUGH DUE 1 EACH MISC MISCELLANE ONE (05:00)
[2018-03-06 05:47] LABS: Anion Gap 7 mmol/L; Blood Urea Nitrogen 23 mg/dL (7-17); Calcium 9.6 mg/dL (8.4-10.2); Carbon Dioxide 29 mmol/L (22-30); Chloride 106 mmol/L (98-107); Glucose 91 mg/dL (74-99); Potassium 4.6 mmol/L (3.5-5.1); Sodium 142 mmol/L (137-145)
[2018-03-06 06:25] VITALS: BP 134/58; TEMP 97.9
[2018-03-06] MEDS: VANCOMYCIN 1,750 MG in SODIUM CHLORIDE 0.9% 250 ML IVPB SCH (06:33)
[2018-03-06] MEDS: LEVOTHYROXINE 25 MCG TAB PO SCH (06:33)
[2018-03-06] MEDS: LEVOTHYROXINE 100 MCG TAB PO SCH (06:33)
[2018-03-06] MEDS: SYMBICORT 160-4.5 MCG INHALER INHALATION SCH (07:37)
[2018-03-06] MEDS: IPRATROPIUM 0.5 MG/2.5 ML NEBU INHALATION SCH ×2 (07:38→11:34)
[2018-03-06 07:41] VITALS: PULSE 72
[2018-03-06] MEDS: NAPROXEN 250 MG TAB PO SCH (07:58)
[2018-03-06] MEDS: RIVAROXABAN 20 MG TAB PO SCH (07:59)
[2018-03-06] MEDS: FAMOTIDINE 20 MG TAB PO SCH (07:59)
[2018-03-06] MEDS: POTASSIUM CHLORIDE ER 10 MEQ TAB.ER.PRT PO SCH (08:00)
[2018-03-06] MEDS: LISINOPRIL 20 MG TAB PO SCH (08:00)
[2018-03-06] MEDS: FUROSEMIDE 40 MG TAB PO SCH (08:00)
--- NOTE | 2018-03-06 13:52 | PN ---
PROGRESS NOTE DATE OF SERVICE: 03/06/2018 REASON FOR FOLLOWUP: Left leg cellulitis. INTERVAL HISTORY: The patient is currently afebrile. She is feeling better. Breathing comfortably. Denies having any chest pain or shortness of breath or cough. No abdominal pain or any pain to the left leg area. PHYSICAL EXAMINATION: On examination, blood pressure is 134/58 with a pulse of 66, temperature is 97.9. She is 94% on room air. General description is an elderly female lying in bed in no distress. RESPIRATORY SYSTEM: Unlabored breathing, clear to auscultation anteriorly. HEART: S1, S2. Regular rate and rhythm. ABDOMEN: Soft, no tenderness. Left leg swelling and redness has improved. LABS: BUN of 23, creatinine 0.78. DIAGNOSTIC IMPRESSION AND PLAN: Patient with left leg cellulitis failing outpatient oral Bactrim, Keflex, currently did well on the vancomycin. She will transition to oral doxycycline 100 mg twice a day for about a week along with Gume wrap to keep the swelling down and follow up in the office in one week. Continue supportive care. Scripts were sent to the pharmacy. MMVANESSAL / ERAN: [id number] /
--- NOTE | 2018-03-06 18:04 | DS ---
DISCHARGE SUMMARY DATE OF SERVICE: 03/06/2018 FINAL DIAGNOSES: 1. Acute left lower extremity cellulitis with failed outpatient treatment, improved. 2. Chronic deep venous thrombosis of the left lower extremity, on Xarelto. 3. Chronic vascular disease. 4. Chronic obstructive pulmonary disease. 5. History of nicotine dependence. 6. Essential hypertension. 7. Hypothyroidism. DISCHARGE DISPOSITION: The patient will be discharged in stable condition with guarded prognosis. HISTORY OF PRESENT ILLNESS: This 67-year-old woman with a past medical history of multiple medical problems was admitted with left lower extremity cellulitis and swelling. Patient was treated with IV antibiotics. Patient improved significantly. On exam, vitals are stable. CARDIOVASCULAR SYSTEM: S1, S2 muffled. ABDOMEN: Soft. NERVOUS SYSTEM: No focal deficit. The patient was also seen by Infectious Disease during the hospitalization. The labs normalized and the cultures are negative. DISCHARGE ADVICE AND MEDICATIONS: 1. Diet is cardiac. 2. Activity limited until followup. 3. Follow up with Dr. Yuriy Toscano in 2 to 3 days. 4. Follow up with Dr. Sanford in 2 to 3 days. 5. Prior HFA 1-2 puffs q.6 p.r.n. 6. Symbicort 160/4.5 two puffs b.i.d. 7. Doxycycline 100 mg b.i.d. for 7 days. 8. Vitamin D2 50,000 daily. 9. Pepcid 20 mg p.o. b.i.d. 10.Lasix 40 mg p.o. daily. 11.Levothyroxine 325 mcg p.o. daily. 12.Zestril 20 mg p.o. daily. 13.Naprosyn 250 mg t.i.d. p.r.n. 14.Klor-Con 10 mEq p.o. daily. 15.Xarelto 20 mg p.o. daily. 16.Zocor 20 mg at bedtime. 17.Spiriva 1 puff daily. MMODL / IJN: [id number] /
[2018-03-16] MEDS ORDERED: ERGOCALCIFEROL 50,000 UNIT CAP PO SCH (09:00)
== END 2018-03-06 14:29 | disposition home or self-care (01) | DRG 603 ==
LOC: EC 15:48 → 4MS4W 17:58
PROVIDERS: ADMIT Hospitalist; ATTEND Hospitalist
DX: L03.116 Cellulitis of left lower limb (principal); I82.502 Chronic embolism and thrombosis of unspecified deep veins of left lower extremity; I25.10 Atherosclerotic heart disease of native coronary artery without angina pectoris; J44.9 Chronic obstructive pulmonary disease, unspecified; I10 Essential (primary) hypertension; E03.9 Hypothyroidism, unspecified; E78.5 Hyperlipidemia, unspecified; I99.9 Unspecified disorder of circulatory system; R26.2 Difficulty in walking, not elsewhere classified; Z79.51 Long term (current) use of inhaled steroids; Z79.890 Hormone replacement therapy; Z79.01 Long term (current) use of anticoagulants; Z79.899 Other long term (current) drug therapy; Z87.891 Personal history of nicotine dependence; Z88.1 Allergy status to other antibiotic agents
CPT/HCPCS: 36415; 80048; 80053; 80202; 82550; 82553; 83735; 84100; 84484; 85025; 85610; 85730; 87040; 93005; 94640; 96361; 96365; 96366; 96375; 99285

== ENCOUNTER → 2018-07-14 | Outpatient (CLI) | payer MEDICARE ==
--- NOTE | 2018-07-17 09:14 | MM ---
Reason for exam: screening (asymptomatic). Baseline mammogram. MG 3D Screening Mammo W/Cad Bilateral CC and MLO view(s) were taken. No prior studies available for comparison. There are scattered fibroglandular densities. No suspicious abnormality ASSESSMENT: Negative, BI-RAD 1 RECOMMENDATION: Routine screening mammogram of both breasts in 1 year.
== END | disposition home or self-care (01) ==
LOC: RADMAMWWP 13:43
PROVIDERS: ATTEND Family Medicine
DX: Z12.31 Encounter for screening mammogram for malignant neoplasm of breast (principal)
CPT/HCPCS: 77063; 77067

== ENCOUNTER 2018-08-27 09:05 | Day surgery (SDC) | payer MEDICARE ==
[2018-08-25 09:55] VITALS: BMI 38.2
[~2018-08-27 09:05] MED LIST: LACTATED RINGERS 1,000 ML IV SCH; LIDOCAINE 1% 20 ML VIAL (10MG/ML) FOR IV START INTRADERMA PRN
--- NOTE | 2018-08-27 09:25 | P.GSHP ---
History of Present Illness H&P Date: 08/27/18 CHIEF COMPLAINT: Colon screen HISTORY OF PRESENT ILLNESS: The patient is a 68-year-old female who presents for colon screen. Lower endoscopy was offered for further evaluation and management. PAST MEDICAL HISTORY: Please see list. PAST SURGICAL HISTORY: Please see list. MEDICATIONS: Please see list. ALLERGIES: Please see list. SOCIAL HISTORY: No illicit drug use FAMILY HISTORY: No reports of Crohn disease or ulcerative colitis. REVIEW OF ORGAN SYSTEMS: CONSTITUTIONAL: No reports of fevers or chills. PHYSICAL EXAM: VITAL SIGNS: Stable GENERAL: Well-developed pleasant in no acute distress. HEENT: No scleral icterus. Extraocular movements grossly intact. Moist buccal mucosa. NECK: Supple without lymphadenopathy. CHEST: Unlabored respirations. Equal bilateral excursions. CARDIOVASCULAR: Regular rate and rhythm. Distal 2+ pulses. ABDOMEN: Soft, nontender, nondistended. MUSCULOSKELETAL: No clubbing, cyanosis, or edema. ASSESSMENT: 1. Colon screen. PLAN: 1. 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 Past Anesthesia/Blood Transfusion Reactions: No Reported Reaction, Motion Sickness Past Psychological History: No Psychological Hx Reported Smoking Status: Former smoker Past Alcohol Use History: Occasional Additional Past Alcohol Use History / Comment(s): QUIT SMOKING 2015, SMOKED 1 PPD OR LESS, STARTED SMOKING AGE 18. Past Drug Use History: None Reported - Past Family History Father Family Medical History: No Reported History Additional Family Medical History / Comment(s): Father of suicide Mother Additional Family Medical History / Comment(s): Mother with high sugar "insulin stroke" emergency without prior known history. HX POLYPS Medications and Allergies Home Medications Medication Instructions Recorded Confirmed Type Albuterol Sulfate [Proair Hfa] 1 - 2 puff INHALATION RT-Q6H PRN 11/13/15 History Budesonide-Formot 160-4.5 Mcg 2 puff INHALATION RT-BID 11/13/15 08/25/18 History [Symbicort 160-4.5 Mcg Inhaler] Ergocalciferol [Vitamin D2 50,000 unit PO DIRECTED 11/13/15 08/25/18 History (DRISDOL)] Furosemide [Lasix] 40 mg PO DAILY 11/13/15 08/25/18 History Potassium Chloride [Klor-Con 10] 10 meq PO DAILY 11/13/15 08/25/18 History Rivaroxaban [Xarelto] 20 mg PO HS 11/13/15 08/25/18 History Tiotropium Al[place] [Spiriva] 1 cap INHALATION RT-DAILY 11/13/15 08/25/18 History Levothyroxine Sodium 25 mcg PO DAILY 02/23/18 08/25/18 History Levothyroxine Sodium 300 mcg PO DAILY 02/23/18 08/25/18 History Simvastatin [Zocor] 20 mg PO HS 02/23/18 08/25/18 History Lisinopril [Zestril] 30 mg PO DAILY 08/25/18 08/25/18 History Allergies Allergy/AdvReac Type Severity Reaction Status Date / Time ciprofloxacin Allergy Swelling Verified 02/28/18 16:28 tobramycin Allergy Swelling Verified 02/28/18 16:28
[2018-08-27 10:49] VITALS: RESP 16; TEMP 98
[2018-08-27 10:49] LABS: Glucose,Whole Blood 83 mg/dL (75-99)
[2018-08-27 12:16] VITALS: BP 174/75; PULSE 49
--- NOTE | 2018-08-27 12:16 | P.PN ---
Progress Note - Text Progress Note Date: 08/27/18 Case canceled due to abnormal blood pressure differential between both arms. Recommend cardiovascular workup. Colonoscopy deferred per recommendation of anesthesia.
== END 2018-08-27 12:39 | disposition home or self-care (01) ==
LOC: ORWHC2ENDO 09:05
PROVIDERS: ATTEND Surgery Plastic and Reconstructive Surgery
DX: Z53.8 Procedure and treatment not carried out for other reasons (principal); Z12.11 Encounter for screening for malignant neoplasm of colon; I25.10 Atherosclerotic heart disease of native coronary artery without angina pectoris; J44.9 Chronic obstructive pulmonary disease, unspecified; E78.5 Hyperlipidemia, unspecified; I10 Essential (primary) hypertension; M19.90 Unspecified osteoarthritis, unspecified site; E07.9 Disorder of thyroid, unspecified; Z79.01 Long term (current) use of anticoagulants; Z79.51 Long term (current) use of inhaled steroids; Z79.899 Other long term (current) drug therapy; Z79.890 Hormone replacement therapy; Z86.718 Personal history of other venous thrombosis and embolism; Z87.891 Personal history of nicotine dependence; Z88.1 Allergy status to other antibiotic agents

== ENCOUNTER → 2018-09-12 | Outpatient (CLI) | payer MEDICARE ==
--- NOTE | 2018-09-17 09:41 | P.ARTDOP ---
Arterial Doppler Upper EXTREMITY ARTERIAL DOPPLER: DATE OF SERVICE: 09/12/2018 Reason for study: Left arm numbness. Doppler waveforms: Multiphasic throughout on the right. Atypical throughout on the left.. Pulse volume recording: Normal configuration on the right. Blunting throughout on the left.. Pressure gradients: Significant right to left gradient. More than 50 mm gradient right to left. 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 Clinical correlation recommended..
== END | disposition home or self-care (01) ==
LOC: RADUSWWP 13:54
PROVIDERS: ATTEND Family Medicine
DX: R09.89 Other specified symptoms and signs involving the circulatory and respiratory systems (principal)
CPT/HCPCS: 93923

== ENCOUNTER → 2018-09-18 | Outpatient (CLI) | payer MEDICARE ==
--- NOTE | 2018-09-19 07:08 | US ---
EXAMINATION TYPE: US carotid duplex BILAT DATE OF EXAM: 09/18/2018 COMPARISON: NONE CLINICAL HISTORY: R09.89Other specified symptoms and signs involving. EXAM MEASUREMENTS: RIGHT: Peak Systolic Velocity (PSV) cm/sec ----- Right CCA: 117 ----- Right ICA: 195 ----- Right ECA: 200 ICA/CCA ratio: 1.6 RIGHT: End Diastole cm/sec ----- Right CCA: 25.8 ----- Right ICA: 49.4 ----- Right ECA: 9.3 LEFT: Peak Systolic Velocity (PSV) cm/sec ----- Left CCA: 92.2 ----- Left ICA: 733 ----- Left ECA: 174 CA/CCA ratio: 7.96 LEFT: End Diastole cm/sec ----- Left CCA: 92.2 ----- Left ICA: 308 ----- Left ECA: 174 VERTEBRALS (direction of flow): Right Vertebral: Antegrade Left Vertebral: Retrograde Rhythm: Normal Mild plaque seen on right with mild velocity increases. High grade stenosis seen on left. Results phoned to December at Dr. Tobias office. IMPRESSION: 1. High-grade stenosis of left ICA. Criteria for Assigning % of Stenosis / Diameter reduction (Estimation based on the indirect measurements of the internal carotid artery velocities (ICA PSV). 1. Normal (no stenosis)=ICA PSV < 125 cm/s: ratio < 2.0: ICA EDV<40 cm/s. 2. Less than 50% stenosis=ICA PSV < 125 cm/s: ratio < 2.0: ICA EDV<40 cm/s. 3. 50 to 69% stenosis=ICA PSV of 125 to 230 cm/s: ration 2.0 ? 4.0: ICA EDV 40-100 cm/s. 4. Greater than 70% stenosis to near occlusion= ICA PSV > 230 cm/s: ratio > 4.0: ICA EDV > 100 cm/s. 5. Near occlusion= ICA PSV velocities may be low or undetectable: variable ratio and ICA EDV. 6. Total occlusion=unable to detect flow.
== END | disposition home or self-care (01) ==
LOC: RADUSWWP 16:14
PROVIDERS: ATTEND Family Medicine
DX: I65.22 Occlusion and stenosis of left carotid artery (principal)
CPT/HCPCS: 93880

== ENCOUNTER 2018-09-20 12:19 | Inpatient (IN) | payer MEDICARE ==
[2018-09-20] MEDS ORDERED: SODIUM CHLORIDE 0.9% 500 ML 500 ML IV STA (13:17)
--- NOTE | 2018-09-20 13:31 | ED ---
Headache HPI - General Source: patient, RN notes reviewed Mode of arrival: ambulatory Limitations: no limitations <Vicente Kline - Last Filed: 09/20/18 15:55> <Terry Rocha - Last Filed: 09/20/18 16:03> - General Chief Complaint: Headache Stated Complaint: blurred vision Time Seen by Provider: 09/20/18 13:11 - History of Present Illness Initial Comments: 68-year-old female presents emergency Department chief complaint of blurred vision, difficulty focusing. Patient states she also felt dizzy. 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 Patient states his symptoms started yesterday and out of the usual. She states she does have known visual problems that she normally wears glasses for but states this is different. She denies any focal weakness. She states that the dizziness is exacerbated by movement. Patient denies fever, chills, URI symptoms. Denies any current chest pain or shortness breath. She does have history of CHF. Patient states she does not know who the vascular surgeon is. family member in the room states that she has not been confuse (Vicente Kline) - Related Data Home Medications Medication Instructions Recorded Confirmed Albuterol Sulfate [Proair Hfa] 1 - 2 puff INHALATION RT-Q6H PRN 11/13/15 Budesonide-Formot 160-4.5 Mcg 2 puff INHALATION RT-BID 11/13/15 09/20/18 [Symbicort 160-4.5 Mcg Inhaler] Ergocalciferol [Vitamin D2 50,000 unit PO Q14D 11/13/15 09/20/18 (DRISDOL)] Furosemide [Lasix] 40 mg PO DAILY 11/13/15 09/20/18 Potassium Chloride [Klor-Con 10] 10 meq PO DAILY 11/13/15 09/20/18 Rivaroxaban [Xarelto] 20 mg PO HS 11/13/15 09/20/18 Tiotropium [place] [Spiriva] 1 cap INHALATION RT-DAILY 11/13/15 09/20/18 Levothyroxine Sodium 25 mcg PO DAILY 02/23/18 09/20/18 Levothyroxine Sodium 300 mcg PO DAILY 02/23/18 09/20/18 Simvastatin [Zocor] 20 mg PO HS 02/23/18 09/20/18 Lisinopril [Zestril] 30 mg PO DAILY 08/25/18 09/20/18 Allergies Allergy/AdvReac Type Severity Reaction Status Date / Time ciprofloxacin Allergy Swelling Verified 09/20/18 13:00 tobramycin Allergy Swelling Verified 09/20/18 13:00 Review of Systems ROS Other: All systems not noted in ROS Statement are negative. <Vicente Kline - Last Filed: 09/20/18 15:55> ROS Other: All systems not noted in ROS Statement are negative. <Terry Rocha - Last Filed: 09/20/18 16:03> ROS Statement: Those systems with pertinent positive or pertinent negative responses have been documented in the HPI. 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 right arm surgery Past Anesthesia/Blood Transfusion Reactions: No Reported Reaction Past Psychological History: No Psychological Hx Reported Smoking Status: Former smoker Past Alcohol Use History: Occasional Past Drug Use History: None Reported - Past Family History Father Family Medical History: No Reported History Additional Family Medical History / Comment(s): Father of suicide Mother Additional Family Medical History / Comment(s): Mother with high sugar "insulin stroke" emergency without prior known history. HX POLYPS <Vicente Kline - Last Filed: 09/20/18 15:55> General Exam Limitations: no limitations General appearance: alert, in no apparent distress Head exam: Present: atraumatic, normocephalic, normal inspection Eye exam: Present: normal appearance, PERRL, EOMI. Absent: scleral icterus, conjunctival injection, periorbital swelling ENT exam: Present: normal exam, normal oropharynx, mucous membranes moist, TM's normal bilaterally, normal external ear exam Neck exam: Present: normal inspection, full ROM. Absent: tenderness, meningismus, lymphadenopathy Respiratory exam: Present: normal lung sounds bilaterally. Absent: respiratory distress, wheezes, rales, rhonchi, stridor Cardiovascular Exam: Present: regular rate, normal rhythm, normal heart sounds. Absent: systolic murmur, diastolic murmur, rubs, gallop, clicks GI/Abdominal exam: Present: soft, normal bowel sounds. Absent: distended, tenderness, guarding, rebound, rigid Neurological exam: Present: alert, oriented X3, CN II-XII intact, reflexes normal. Absent: motor sensory deficit Expanded Patient oriented to: Present: person, place, time Speech: Present: fluid speech Cranial nerves: EOM's Intact: Normal, Tongue Deviation: Normal, Nystagmus: Normal, Facial Sensation: Normal Cerebellar function: Finger to Nose: Normal, Heel to Becerra: Normal, Romberg: Normal Upper motor neuron: Kyle Neglect: Normal, Pronator Drift: Normal, Sensory Extinction: Normal Motor strength exam: RUE: 5, LUE: 5, RLE: 5, LLE: 5 Eye Response: (4) open spontaneously Motor Response: (6) obeys commands Verbal Response: (5) oriented Jose Enrique Total: 15 (NIH 0) Skin exam: Present: warm, dry, intact, normal color. Absent: rash <Vicente Kline - Last Filed: 09/20/18 15:55> Course <Vicente Kline - Last Filed: 09/20/18 15:55> <Terry Rocha - Last Filed: 09/20/18 16:03> Vital Signs 09/20/18 09/20/18 09/20/18 12:22 13:37 15:00 Temperature 97.7 F Pulse Rate 78 55 L 49 L Respiratory 18 18 18 Rate Blood Pressure 136/71 109/55 119/52 O2 Sat by Pulse 99 94 L 98 Oximetry - Reevaluation(s) Reevaluation #1: 09/20/18 16:02 PA supervision: I proceeded [id number] evaluation patient did discuss the findings with her. 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 She does have transient episodes of this in the past she does have left carotid stenosis which she scheduled had an endarterectomy 4 later this month. She does have some left orbital area discomfort. No other physical findings. The CAT scan shows narrowing please see the complete report. There is some question of an asymmetrical retinal vein. No definitive findings to explain the current presentation. I did discuss the case with Dr. velasquez the patient be admitted with consultation by ophthalmology and vascular surgery. (Terry Rocha) Medical Decision Making - Lab Data Result diagrams: 09/20/18 13:30 09/20/18 13:30 <Vicente Kline - Last Filed: 09/20/18 15:55> - Lab Data Result diagrams: 09/20/18 13:30 09/20/18 13:30 <Terry Rocha - Last Filed: 09/20/18 16:03> - Medical Decision Making 68 show female presented for blurred vision, headache and dizziness. Patient has known carotid stenosis on the left scheduled for surgery. Patient had CT, CTA. There is some asymmetrical retinal vein on the left. This may be nonspecific though is concerning secondary to patient's symptoms. Patient does have known stenosis right and left ICA. Patient will be admitted for evaluation by ophthalmology i and neuro (Vicente Kline) - Lab Data Lab Results 09/20/18 09/20/18 09/20/18 Range/Units 13:30 13:30 13:30 WBC 6.7 (3.8-10.6) k/uL RBC 4.69 (3.80-5.40) m/uL Hgb 14.3 (11.4-16.0) gm/dL Hct 43.3 (34.0-46.0) % MCV 92.3 (80.0-100.0) fL MCH 30.4 (25.0-35.0) pg MCHC 32.9 (31.0-37.0) g/dL RDW 13.7 (11.5-15.5) % Plt Count 157 (150-450) k/uL Neutrophils % 59 % Lymphocytes % 29 % Monocytes % 5 % Eosinophils % 4 % Basophils % 1 % Neutrophils # 3.9 (1.3-7.7) k/uL Lymphocytes # 1.9 (1.0-4.8) k/uL Monocytes # 0.4 (0-1.0) k/uL Eosinophils # 0.3 (0-0.7) k/uL Basophils # 0.1 (0-0.2) k/uL PT (9.0-12.0) sec INR (<1.2) APTT (22.0-30.0) sec Sodium 141 (137-145) mmol/L Potassium 4.5 (3.5-5.1) mmol/L Chloride 110 H (98-107) mmol/L Carbon Dioxide 25 (22-30) mmol/L Anion Gap 6 mmol/L BUN 26 H (7-17) mg/dL Creatinine 0.95 (0.52-1.04) mg/dL Est GFR (CKD-EPI)AfAm 73 (>60 ml/min/1.73 sqM) Est GFR (CKD-EPI)NonAf 63 (>60 ml/min/1.73 sqM) Glucose 117 H (74-99) mg/dL Calcium 9.6 (8.4-10.2) mg/dL Total Bilirubin 0.5 (0.2-1.3) mg/dL AST 16 (14-36) U/L ALT 21 (9-52) U/L Alkaline Phosphatase 69 (38-126) U/L Total Creatine Kinase 43 (30-135) U/L CK-MB (CK-2) 0.3 (0.0-2.4) ng/mL CK-MB (CK-2) Rel Index 0.7 Troponin I <0.012 (0.000-0.034) ng/mL Total Protein 6.6 (6.3-8.2) g/dL Albumin 3.9 (3.5-5.0) g/dL 09/20/18 Range/Units 13:30 WBC (3.8-10.6) k/uL RBC (3.80-5.40) m/uL Hgb (11.4-16.0) gm/dL Hct (34.0-46.0) % MCV (80.0-100.0) fL MCH (25.0-35.0) pg MCHC (31.0-37.0) g/dL RDW (11.5-15.5) % Plt Count (150-450) k/uL Neutrophils % % Lymphocytes % % Monocytes % % Eosinophils % % Basophils % % Neutrophils # (1.3-7.7) k/uL Lymphocytes # (1.0-4.8) k/uL Monocytes # (0-1.0) k/uL Eosinophils # (0-0.7) k/uL Basophils # (0-0.2) k/uL PT 10.2 (9.0-12.0) sec INR 0.9 (<1.2) APTT 25.5 (22.0-30.0) sec Sodium (137-145) mmol/L Potassium (3.5-5.1) mmol/L Chloride (98-107) mmol/L Carbon Dioxide (22-30) mmol/L Anion Gap mmol/L BUN (7-17) mg/dL Creatinine (0.52-1.04) mg/dL Est GFR (CKD-EPI)AfAm (>60 ml/min/1.73 sqM) Est GFR (CKD-EPI)NonAf (>60 ml/min/1.73 sqM) Glucose (74-99) mg/dL Calcium (8.4-10.2) mg/dL Total Bilirubin (0.2-1.3) mg/dL AST (14-36) U/L ALT (9-52) U/L Alkaline Phosphatase (38-126) U/L Total Creatine Kinase (30-135) U/L CK-MB (CK-2) (0.0-2.4) ng/mL CK-MB (CK-2) Rel Index Troponin I (0.000-0.034) ng/mL Total Protein (6.3-8.2) g/dL Albumin (3.5-5.0) g/dL Disposition <Vicente Kline - Last Filed: 09/20/18 15:55> <Terry Rocha - Last Filed: 09/20/18 16:03> Clinical Impression: Headache, Carotid stenosis, Blurred vision, Dizziness Disposition: ADMITTED IP TO THIS [facility] Condition: Fair Referrals: Yuriy Toscano DO [Primary Care Provider] - 1-2 days
[2018-09-20 13:42] LABS: Basophils # (A) 0.1 k/uL (0-0.2); Basophils % (A) 1 %; Eosinophils # (A) 0.3 k/uL (0-0.7); Eosinophils % (A) 4 %; HCT 43.3 % (34.0-46.0); HGB 14.3 gm/dL (11.4-16.0); Lymphocytes # (A) 1.9 k/uL (1.0-4.8); Lymphocytes % (A) 29 %; MCH 30.4 pg (25.0-35.0); MCHC 32.9 g/dL (31.0-37.0); MCV 92.3 fL (80.0-100.0); Mean Platelet Volume 7.9; Monocytes # (A) 0.4 k/uL (0-1.0); Monocytes % (A) 5 %; Neutrophils # (A) 3.9 k/uL (1.3-7.7); Neutrophils % (A) 59 %; Platelet Count 157 k/uL (150-450); RBC 4.69 m/uL (3.80-5.40); RDW 13.7 % (11.5-15.5); WBC 6.7 k/uL (3.8-10.6)
[2018-09-20 13:52] LABS: Albumin 3.9 g/dL (3.5-5.0); Calcium 9.6 mg/dL (8.4-10.2); INR 0.9 (<1.2); Partial Thromboplastin Time 25.5 sec (22.0-30.0); Potassium 4.5 mmol/L (3.5-5.1); Prothrombin Time 10.2 sec (9.0-12.0); Total Bilirubin 0.5 mg/dL (0.2-1.3); Total Protein 6.6 g/dL (6.3-8.2)
[2018-09-20 14:02] LABS: Creatine Kinase 43 U/L (30-135)
[2018-09-20 14:16] LABS: Creatine Kinase MB 0.3 ng/mL (0.0-2.4); Troponin I <0.012 ng/mL (0.000-0.034)
--- NOTE | 2018-09-20 14:47 | CT ---
EXAMINATION TYPE: CT brain wo con DATE OF EXAM: 09/20/2018 COMPARISON: None HISTORY: 68-year-old female Left eye blurring/pressure TECHNIQUE: Examination was done in axial plane without intravenous contrast. Coronal and sagittal r econstructions performed. CT DLP: 1208.4 mGycm Automated exposure control for dose reduction was used. FINDINGS: There is no evidence of acute intracranial hemorrhage, acute ischemic changes, mass, mass-effect, or extra-axial fluid collection. There is no effacement of cerebral sulci or basal subarachnoid cister ns. There is no hydrocephalus. There is no midline shift. Moreno-white matter distinction is preserv ed. There is slight asymmetric enlargement of the left superior ophthalmic vein with the diameter of 3.5 mm versus 2.4 mm on the contralateral side. Orbits and globes otherwise appear intact. Mild generalized supratentorial volume loss. IMPRESSION: No acute intracranial abnormality seen. Slight asymmetric enlargement of the left superior ophthalmic vein. Nonspecific, possibly transient. Given left eye symptoms, other possibilities include ophthalm ic vein varix, Graves' disease, and carotid cavernous fistula. Clinically correlate.
--- NOTE | 2018-09-20 15:26 | CT ---
EXAMINATION TYPE: CT angio head neck DATE OF EXAM: 09/20/2018 COMPARISON: Correlation CT brain same day HISTORY: 68-year-old female neurologic deficits, Left eye blurring/pressure TECHNIQUE: Contiguous axial scanning of the head and neck performed with IV Contrast, patient injecte d with 65 mL of Isovue 370. Coronal/sagittal MIP reconstructions performed. 3-D reconstructions gener ated on a dedicated independent workstation. CT DLP: 504.8 mGycm Automated exposure control for dose reduction was used. FINDINGS: Neck: There is severe sclerotic narrowing at the proximal left subclavian artery. Moderate atherosclerotic narrowing at the origin of the right vertebral artery. Left vertebral artery origin appears patent. The bilateral vertebral arteries are otherwise patent throughout her course. The right common carotid artery is patent. Mild to moderate atherosclerotic plaque at the carotid bif urcation with mild, less than 50% atherosclerotic narrowing at the right carotid bulb. Mildly tortuou s upper right ICA. Mild atherosclerotic narrowing at the origin of the left common carotid artery. Mild eccentric atherosclerotic plaque upper left common carotid artery. Additional atherosclerotic plaque in the left carotid both contributing to a severe, greater than 70% stenosis. The left carotid bifurcation is located 2.8 cm below the angle of the mandible. Head: There are mild atherosclerotic calcifications in the carotid siphons. The internal carotid, vertebral, and basilar arteries are patent. Anterior and posterior circulations show no evidence of occlusion. No aneurysmal change is identified. While the left superior ophthalmic vein is asymmetrically prominent compared to the right, there is n o asymmetric early enhancement of the vein identified. IMPRESSION: NECK: 1. ATHEROSCLEROTIC PLAQUE IN THE LEFT CAROTID BULB CONTRIBUTING TO A SEVERE, GREATER THAN 70% PROXIMA L LEFT ICA STENOSIS. 2. ADDITIONAL SEVERE ATHEROSCLEROTIC STENOSIS PROXIMAL LEFT SUBCLAVIAN ARTERY. 3. MILD, LESS THAN 50% NARROWING AT THE PROXIMAL RIGHT ICA. 4. MODERATE ATHEROSCLEROTIC NARROWING AT THE ORIGIN OF THE RIGHT VERTEBRAL ARTERY. HEAD: 1. NO LARGE VESSEL INTRACRANIAL OCCLUSION, SIGNIFICANT STENOSIS, OR ANEURYSMAL CHANGE SEEN.
[2018-09-20] MEDS ORDERED: ASPIRIN 325 MG TAB PO STA (15:57)
[2018-09-20 18:08] VITALS: BMI 37.0
[2018-09-20] MEDS ORDERED: ALBUTEROL NEBULIZED 2.5 MG/3 ML INHALATION PRN (18:58)
--- NOTE | 2018-09-20 19:04 | P.CNNES ---
History of Present Illness Consult date: 09/20/18 Reason for Consult: This patient is admitted with dizziness and headache. History of Present Illness: This patient is a 68-year-old right-handed white female who states that she was going in for a routine colonoscopy preop evaluation last week. Apparently the nursing staff had checked her blood pressure and it was noted to show significant variation from right to left arm. The patient underwent a upper extremity arterial Doppler study on 09/12/2018 which revealed left axillary subclavian occlusion. Due to the inequality in the blood pressure readings from right to left arm she was sent for a carotid Doppler ultrasound which was done on 09/18/2018. The carotid Doppler study revealed high-grade stenosis of the left internal carotid artery. Patient states she was contacted by Dr. Beck 's office that she would need to undergo an emergent left carotid endarterectomy procedure. According to the patient the surgery has been scheduled for 10/02/2018. Patient states she was given all this information very recently and just was feeling overwhelmed with all of the changes. Today she was noticing symptoms of increase blurring of her vision as well as difficulty focusing. She also complained of sudden onset of diplopia for the past 1 day. When describing the diplopia she states it is mostly vertical with one object on top of the other. The patient also had mild headache pain on the left retro-orbital region. Due to all of these symptoms she was recommended to go to the emergency room today for further evaluation. Patient lives at home with her brother and a large [facility] home. Apparently over the last week the brother has noted that she gets short of breath and lightheaded when she climbs a large staircase of 16 steps. The brother was present today in the room today and was able to give further details. Apparently the patient has been symptomatic with lightheadedness and dizziness which seems to be provoked with movements of her head. Patient still continues to experience double vision and diplopia which at times is more vertical and at other times horizontal in nature. The patient states her headache pain has subsided since coming into the hospital today. When questioned about disequilibrium she states she feels dizzy but has not had any falls. Her dizziness is more of a lightheaded feeling when she moves her head quickly. As noted the patient does have severe left carotid artery disease with left subclavian occlusion as well. We are recommending a consultation with vascular surgeon and Dr. Pearson for further vascular surgery evaluation and recommendations today. The patient states that she has been taking Xarelto at home for the past 5 years. She has history of DVT and clot formation in her left leg. She has been on Xarelto as mentioned for the past 5 years. The patient has not experienced any facial droop or left- sided weakness. Due to the diplopia and the dizziness these were the main reasons for her to come to the emergency room today for evaluation. She was seen in the ER by physician central supply assistant Vicente Arguello. She was subsequently admitted to hospital for further evaluation. Neurology is now been consulted for further evaluation and recommendations. Review of Systems Constitutional: Denies chills, Denies fever Eyes: denies blurred vision, denies pain Ears, nose, mouth and throat: Denies headache, Denies sore throat Cardiovascular: Denies chest pain, Denies shortness of breath Respiratory: Denies cough Gastrointestinal: Denies abdominal pain, Denies diarrhea, Denies nausea, Denies vomiting Genitourinary: Denies dysuria, Denies hematuria Musculoskeletal: Denies myalgias Integumentary: Denies pruritus, Denies rash Neurological: Reports balance difficulties, Reports double vision, Reports gait dysfunction, Reports lack of coordination, Reports vertigo, Denies numbness, Denies weakness Psychiatric: Denies anxiety, Denies depression Endocrine: Denies fatigue, Denies weight change Past Medical History Past Medical History: Coronary Artery Disease (CAD), COPD, Hyperlipidemia, Hypertension, Thyroid Disorder Additional Past Medical History / Comment(s): left leg dvt History of Any Multi-Drug Resistant Organisms: None Reported Past Surgical History: Orthopedic Surgery, Tonsillectomy Additional Past Surgical History / Comment(s): jaw surgery secondary to trauma, artificial bone and metal remains in jaw, surgery done at [facility]. right arm surgery Past Anesthesia/Blood Transfusion Reactions: No Reported Reaction Past Psychological History: No Psychological Hx Reported Smoking Status: Former smoker Past Alcohol Use History: Occasional Past Drug Use History: None Reported - Past Family History Father Family Medical History: No Reported History Additional Family Medical History / Comment(s): Father of suicide Mother Additional Family Medical History / Comment(s): Mother with high sugar "insulin stroke" emergency without prior known history. HX POLYPS Medications and Allergies Home Medications Medication Instructions Recorded Confirmed Type Albuterol Sulfate [Proair Hfa] 1 - 2 puff INHALATION RT-Q6H PRN 11/13/15 History Budesonide-Formot 160-4.5 Mcg 2 puff INHALATION RT-BID 11/13/15 09/20/18 History [Symbicort 160-4.5 Mcg Inhaler] Ergocalciferol [Vitamin D2 50,000 unit PO Q14D 11/13/15 09/20/18 History (DRISDOL)] Furosemide [Lasix] 40 mg PO DAILY 11/13/15 09/20/18 History Potassium Chloride [Klor-Con 10] 10 meq PO DAILY 11/13/15 09/20/18 History Rivaroxaban [Xarelto] 20 mg PO HS 11/13/15 09/20/18 History Tiotropium [place] [Spiriva] 1 cap INHALATION RT-DAILY 11/13/15 09/20/18 History Levothyroxine Sodium 25 mcg PO DAILY 02/23/18 09/20/18 History Levothyroxine Sodium 300 mcg PO DAILY 02/23/18 09/20/18 History Simvastatin [Zocor] 20 mg PO HS 02/23/18 09/20/18 History Lisinopril [Zestril] 30 mg PO DAILY 08/25/18 09/20/18 History Allergies Allergy/AdvReac Type Severity Reaction Status Date / Time ciprofloxacin Allergy Swelling Verified 09/20/18 13:00 tobramycin Allergy Swelling Verified 09/20/18 13:00 Physical Examination - Vital Signs Vital Signs: Vital Signs Temp Pulse Pulse Resp BP BP Pulse Ox 09/20/18 17:22 97.0 F L 54 L 16 130/54 99 09/20/18 16:21 97.2 F L 53 L 18 127/50 96 09/20/18 15:00 49 L 18 119/52 98 09/20/18 13:37 55 L 18 109/55 94 L 09/20/18 12:22 97.7 F 78 18 136/71 99 Intake and Output 09/20/18 09/20/18 09/20/18 06:59 14:59 22:59 Other: Weight 112.491 kg - Constitutional General appearance: average body habitus, cooperative - EENT EENT: PERRL, mucous membranes moist - Respiratory Respiratory: lungs clear, normal breath sounds - Cardiovascular Cardiovascular: regular rate, normal S1, normal S2 Extremities: no peripheral edema bilaterally - Gastrointestinal Gastrointestinal: normoactive bowel sounds - Neurologic Cranial nerve examination: PERRL, EOMI (Patient has evidence of horizontal and vertical diplopia on gaze testing.), VFF, face symmetric, intact shoulder shrug , intact gag reflex, intact corneal reflex, normal palatal elevation Speech examination: intact Sensorimotor examination: intact Motor examination - right side: 4/5: biceps, triceps, wrist flexion, wrist extension, hotel or motel room service supervisor, hip flexors, knee extensors, dorsiflexion, toe extension (EHL) , plantarflexion Motor examination - left side: 4/5: biceps, triceps, wrist flexion, wrist extension, hotel or motel room service supervisor, hip flexors, knee extensors, dorsiflexion, toe extension (EHL) , plantarflexion Detailed sensory examination: intact Reflex and gait examination: intact Reflexes: 1+: ankle, bicep, knee, tricep - Musculoskeletal Musculoskeletal: no pain - Psychiatric Psychiatric: mood/affect appropriate, cooperative Results - Laboratory Findings CBC and BMP: 09/20/18 13:30 09/20/18 13:30 Abnormal Lab Findings: Abnormal Labs 09/20/18 13:30 Chloride 110 H BUN 26 H Glucose 117 H Assessment and Plan (1) Carotid artery stenosis Current Visit: Yes Status: Acute Code(s): I65.29 - OCCLUSION AND STENOSIS OF UNSPECIFIED CAROTID ARTERY SNOMED Code(s): 24290343 (2) Diplopia Current Visit: Yes Status: Acute Code(s): H53.2 - DIPLOPIA SNOMED Code(s) : 27107331 (3) Dizziness Current Visit: Yes Status: Acute Code(s): R42 - DIZZINESS AND GIDDINESS SNOMED Code(s): 915059056 (4) Headache Current Visit: Yes Status: Acute Code(s): R51 - HEADACHE SNOMED Code(s): 80421127 Plan: This patient is a 68-year-old female who was admitted to [facility] today for evaluation of dizziness and blurred vision with headache. Symptoms began yesterday and her symptoms did not improve today causing her to come to the emergency room today for further evaluation. She was seen in the ER by physician central supply assistant Vicente Kline and Dr. Rocha. She was sent for a computed tomography scan of the brain for further evaluation. CAT scan of the brain revealed no acute intracranial abnormality. CTA angiogram of the head and neck revealed severe sclerotic narrowing of the left subclavian artery. There was severe left carotid artery stenosis greater than 70% noted as well. The patient states she recently underwent a carotid Doppler study and was told that the left carotid artery is nearly 90% occluded. She has been seen in the vascular surgery clinic and has been scheduled for left carotid endarterectomy on 10/02/2018. Patient states that yesterday she developed sudden onset of diplopia which is new symptom for her and she has never had this symptom previously. She was brought into the emergency room for further evaluation. Her neurological examination reveals her to have mostly vertical diplopia on gaze testing. Her headache pain has significantly improved since admission to hospital. We are recommending a vascular surgery consultation with Dr. Pearson for further evaluation of severe left carotid carotid artery stenosis and left subclavian stenosis. Her clinical and neurological findings suggest possibility of brainstem ischemia. We are recommending the patient undergo MRI of the brain. Would recommend the patient to continue on Xarelto at this time given the severity of her carotid disease. We will continue to follow her progress closely during this admission. Her overall prognosis at this time remains guarded. Time with Patient: Greater than 30
[2018-09-20] MEDS ORDERED: ATORVASTATIN 10 MG TAB PO SCH (21:00)
[2018-09-20] MEDS: RIVAROXABAN 20 MG TAB PO SCH (21:12)
[2018-09-20] MEDS: SYMBICORT 160-4.5 MCG INHALER INHALATION SCH (21:29)
[2018-09-20] MEDS ORDERED: TEMAZEPAM 15 MG CAP PO PRN (22:30)
[2018-09-20] MEDS ORDERED: ALPRAZolam 0.25 MG TAB PO PRN (22:30)
[2018-09-20] MEDS ORDERED: ACETAMINOPHEN TAB 500 MG TAB PO PRN (22:30)
[2018-09-21] MEDS: PANTOPRAZOLE 40 MG TABLET PO SCH (05:44)
[2018-09-21] MEDS: LEVOTHYROXINE 100 MCG TAB PO SCH (05:44)
[2018-09-21] MEDS: LEVOTHYROXINE 25 MCG TAB PO SCH (05:44)
[2018-09-21 06:38] LABS: Basophils # (A) 0.1 k/uL (0-0.2); Basophils % (A) 1 %; Eosinophils # (A) 0.2 k/uL (0-0.7); Eosinophils % (A) 5 %; HGB 14.1 gm/dL (11.4-16.0); Lymphocytes # (A) 2.5 k/uL (1.0-4.8); Lymphocytes % (A) 47 %; MCH 29.9 pg (25.0-35.0); MCV 93.4 fL (80.0-100.0); Mean Platelet Volume 7.9; Monocytes # (A) 0.3 k/uL (0-1.0); Monocytes % (A) 6 %; Neutrophils # (A) 2.1 k/uL (1.3-7.7); Neutrophils % (A) 38 %; Platelet Count 144 k/uL (150-450); RDW 13.6 % (11.5-15.5); WBC 5.4 k/uL (3.8-10.6)
[2018-09-21 06:53] LABS: Anion Gap 6 mmol/L; Blood Urea Nitrogen 21 mg/dL (7-17); Calcium 9.8 mg/dL (8.4-10.2); Carbon Dioxide 24 mmol/L (22-30); Chloride 111 mmol/L (98-107); Cholesterol 156 mg/dL (<200); HDL Cholesterol 54 mg/dL (40-60); LDL Cholesterol,Calculated 82 mg/dL (0-99); Potassium 4.4 mmol/L (3.5-5.1); Sodium 141 mmol/L (137-145); Triglycerides 101 mg/dL (<150)
[2018-09-21 06:54] LABS: Glucose 93 mg/dL (74-99)
[2018-09-21] MEDS: SYMBICORT 160-4.5 MCG INHALER INHALATION SCH ×2 (07:12→19:35)
[2018-09-21] MEDS: IPRATROPIUM 0.5 MG/2.5 ML NEBU INHALATION SCH ×4 (07:12→19:34)
[2018-09-21] MEDS: POTASSIUM CHLORIDE ER 10 MEQ TAB.ER.PRT PO SCH (08:19)
[2018-09-21] MEDS: LISINOPRIL 10 MG TAB PO SCH (08:19)
[2018-09-21] MEDS: ASPIRIN 325 MG TAB PO SCH (08:19)
[2018-09-21] MEDS: FAMOTIDINE 20 MG TAB PO SCH (08:19)
[2018-09-21] MEDS: FUROSEMIDE 40 MG TAB PO SCH (08:19)
--- NOTE | 2018-09-21 09:28 | HP ---
HISTORY AND PHYSICAL DATE OF SERVICE: 09/20/2018 CHIEF COMPLAINT: Headache and blurred vision, diplopia. HISTORY OF PRESENT ILLNESS: This 68-year-old woman with a past medical history of multiple medical problems including history of CAD, COPD, hypertension, and hyperlipidemia, hypothyroidism , DJD, history of jaw surgery secondary to trauma done at [facility] who was being followed by Dr. Toscano in the outpatient setting. The patient is complaining of diplopia and as well as some headaches and feeling dizzy. The patient had known 90% occlusion of the left carotid and the patient was scheduled for surgery on the . The patient came to [facility] and was admitted for further evaluation and treatment. There is no history of fever, rigors. No history of headache, loss of consciousness or seizures. The patient was evaluated in the ER and the patient underwent a CT angiography which showed atherosclerotic plaque in the left carotid bulbar with severe greater than 70% stenosis in addition severe atheromatous stenosis, severe thrombotic stenosis of the proximal left subclavian artery and mild 50% narrowing of the proximal right RCA and moderate origin of the right vertebral artery. The patient admitted for further evaluation and treatment. There is no history of fever, rigors or chills. No history of headache, loss of consciousness, seizures at this time. PAST MEDICAL HISTORY: History of CAD, COPD, hypertension, hyperlipidemia, hypothyroidism, history of DJD. MEDICATIONS: Prior to admission home medications are: 1. Zocor 20 mg q.h.s. 2. Xarelto 20 mg q.h.s. 3. Vitamin D2 50,000 daily. 4. ProAir 1-2 puffs q.6h p.r.n. 5. Spiriva 1 puff daily. 6. Klor-Con 10 mEq p.o. daily. 7. Zestril 30 mg. 8. Levothyroxine 300 mcg p.o. daily. 10.Lasix 40 mg. 11.Symbicort 160/4.5 two puffs b.i.d. ALLERGIES: CIPRO, TOBRAMYCIN. FAMILY HISTORY, SOCIAL HISTORY AND REVIEW OF SYSTEMS: No history of heart disease or strokes in the family. Suicide in father. SOCIAL HISTORY: Remote history of smoking. No history of current smoking. No alcohol intake. REVIEW OF SYSTEMS: ENT: No diminished hearing or vision. CARDIOVASCULAR: No angina or palpitations. RESPIRATORY: As mentioned earlier. GI no nausea or vomiting. : No dysuria. CENTRAL NERVOUS SYSTEM: As mentioned earlier. ALLERGY/IMMUNOLOGY: No asthma or hayfever. MUSCULOSKELETAL: As mentioned earlier. HEMATOLOGY/ONCOLOGY: No history of anemia. ENDOCRINE: Hypothyroidism. CONSTITUTIONAL: As mentioned. Dermatology: Negative. Rheumatology: Negative. Psychiatry: As mentioned earlier. PHYSICAL EXAMINATION: GENERAL: Alert, oriented x3. VITAL SIGNS: Pulse 56, blood pressure 95/42, respirations 18, temperature 97.8, pulse ox 94% on room air. HEENT: Conjunctivae normal. NECK: No jugular venous distention. No carotid bruit. No lymph node enlargement. CARDIOVASCULAR: S1, S2. RESPIRATORY: Breath sounds diminished in the bases. No rhonchi. No crackles. ABDOMEN: Soft, nontender. No mass palpable. LEGS: No edema. No swelling. CENTRAL NERVOUS SYSTEM: Higher functions as mentioned earlier. Moves all four extremities. No focal deficits. Lymphatics: No lymph nodes palpable in the neck, axillae or groin. SKIN: No ulcer, rash or bleeding. LABS: WBC 6.2, hemoglobin 14.7, sodium 140, potassium 4.5, glucose 117. ASSESSMENT: 1. Diplopia and as well as headache, possible acute transient ischemic attack. 2. Severe stenosis of the left carotid artery more than 70% proximal. 3. 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 4. Mild 50% narrowing of the proximal RCA. 5. Moderate atherosclerotic narrowing origin of the right vertebral artery. 6. Coronary artery disease. 7. Chronic obstructive pulmonary disease. 8. Hypertension. 9. Hypothyroidism. 10.History of left leg deep vein thrombosis. 11.Tonsillectomy. 12.History of previous cellulitis. RECOMMENDATIONS AND DISCUSSION: In this 68-year-old woman who presented with multiple complex medical issues, we will monitor the patient closely. Continue the current medications, management and symptomatic treatment. We will initiate antiplatelet agents and vascular surgery evaluation. Otherwise, neurology has been consulted. Antiplatelet agents. Resume the home medications. Prognosis guarded because of multiple complex medical issues. Further recommendations to follow. MRA has been ordered. Copy of dictation being forwarded to Dr. Carey Toscano who is the primary physician. MMODL / IJN: [id number] / [facility]
--- NOTE | 2018-09-21 13:33 | P.GSCN ---
History of Present Illness Consult date: 09/21/18 Reason for Consult: carotid artery stenosis and left subclavian artery stenosis Requesting physician: Beau Barakat History of present illness: 68-year-old female with past medical history of coronary artery disease, COPD, hypertension, hyperlipidemia, hypothyroidism, and jaw surgery secondary to trauma presented to the hospital secondary to vision changes and dizziness. States she has been feeling dizzy the last several weeks and had carotid Doppler study done which demonstrated left internal carotid artery stenosis of 80-99%. She was then scheduled as an outpatient to follow up with Dr. Haines on the of this month for workup of her carotid disease. She states after finding out that she had carotid stenosis she was having increased dizziness and vision changes which she describes as blurriness but without any syncope she decided to come to the hospital to have further workup for the fear that the carotid disease was causing her symptoms. She states dizziness comes and goes usually when she gets up or moves suddenly. She denies any lateralizing symptoms such as unilateral weakness, amaurosis fugax, or speech issues. Upon evaluation in the hospital she underwent a CT angiogram of the brain and neck which demonstrated greater than 70% stenosis of the left internal carotid artery as well as severe stenosis noted within the left subclavian artery. There is mild narrowing of the right ICA approximately 50%. She does admit to having left hand weakness as well as intermittent numbness. Currently she denies any fevers, chills, chest pain or shortness of breath. Review of Systems - Constitutional Denies anorexia, Denies chills, Denies fatigue, Denies fever, Denies lethargy - EENT Ears, nose, mouth and throat: Reports headache, Denies dysphagia, Denies epistaxis - Cardiovascular Reports decreased exercise tolerance, Reports leg edema, Reports lightheadedness , Denies chest pain, Denies claudication - Respiratory Denies congestion, Denies cough, Denies dyspnea, Denies hemoptysis - Gastrointestinal Denies abdominal pain, Denies belching, Denies bloating, Denies BRBPR, Denies melena - Musculoskeletal Reports arm numbness/tingling - Integumentary Denies change in hair/nails, Denies color changes, Denies foot/leg ulcers, Denies sores - Neurological Reports double vision, Reports headaches, Reports numbness, Reports visual changes, Denies change in speech, Denies confusion, Denies convulsions, Denies weakness - Psychiatric Denies anxiety, Denies anxiety attacks, Denies confusion Past Medical History Past Medical History: Coronary Artery Disease (CAD), COPD, Hyperlipidemia, Hypertension, Thyroid Disorder Additional Past Medical History / Comment(s): left leg dvt History of Any Multi-Drug Resistant Organisms: None Reported Past Surgical History: Orthopedic Surgery, Tonsillectomy Additional Past Surgical History / Comment(s): jaw surgery secondary to trauma, artificial bone and metal remains in jaw, surgery done at [facility]. right arm surgery Past Anesthesia/Blood Transfusion Reactions: No Reported Reaction Past Psychological History: No Psychological Hx Reported Smoking Status: Former smoker Past Alcohol Use History: Occasional Past Drug Use History: None Reported - Past Family History Father Family Medical History: No Reported History Additional Family Medical History / Comment(s): Father of suicide Mother Additional Family Medical History / Comment(s): Mother with high sugar "insulin stroke" emergency without prior known history. HX POLYPS Medications and Allergies Home Medications Medication Instructions Recorded Confirmed Type Albuterol Sulfate [Proair Hfa] 1 - 2 puff INHALATION RT-Q6H PRN 11/13/15 History Budesonide-Formot 160-4.5 Mcg 2 puff INHALATION RT-BID 11/13/15 09/20/18 History [Symbicort 160-4.5 Mcg Inhaler] Ergocalciferol [Vitamin D2 50,000 unit PO Q14D 11/13/15 09/20/18 History (DRISDOL)] Furosemide [Lasix] 40 mg PO DAILY 11/13/15 09/20/18 History Potassium Chloride [Klor-Con 10] 10 meq PO DAILY 11/13/15 09/20/18 History Rivaroxaban [Xarelto] 20 mg PO HS 11/13/15 09/20/18 History Tiotropium [place] [Spiriva] 1 cap INHALATION RT-DAILY 11/13/15 09/20/18 History Levothyroxine Sodium 25 mcg PO DAILY 02/23/18 09/20/18 History Levothyroxine Sodium 300 mcg PO DAILY 02/23/18 09/20/18 History Simvastatin [Zocor] 20 mg PO HS 02/23/18 09/20/18 History Lisinopril [Zestril] 30 mg PO DAILY 08/25/18 09/20/18 History Allergies Allergy/AdvReac Type Severity Reaction Status Date / Time ciprofloxacin Allergy Swelling Verified 09/20/18 13:00 tobramycin Allergy Swelling Verified 09/20/18 13:00 Surgical - Exam Vital Signs Temp Pulse Resp BP Pulse Ox 97.7 F 78 18 136/71 99 09/20/18 12:22 09/20/18 12:22 09/20/18 12:22 09/20/18 12:22 09/20/18 12:22 - General well developed, well nourished, no distress - Eyes PERRL, normal ocular movement - ENT normal pinna, normal nares, normal mucosa, poor longterm - Neck no masses - Respiratory normal expansion, normal respiratory effort - Cardiovascular Rhythm: regular - Abdomen Abdomen: soft, non tender, no distended - Integumentary no rash - Neurologic normal coordination, normal sensation - Psychiatric oriented to time, oriented to person, oriented to place, speech is normal palpable right radial pulse. diminished left radial pulse. Palpable posterior tibial and dorsalis pedis pulses bilaterally. Results - Labs 09/21/18 06:10 09/21/18 06:10 Abnormal Lab Results - Last 24 Hours (Table) 09/20/18 09/21/18 09/21/18 Range/Units 13:30 06:10 06:10 Plt Count 144 L (150-450) k/uL Chloride 110 H 111 H (98-107) mmol/L BUN 26 H 21 H (7-17) mg/dL Glucose 117 H (74-99) mg/dL Diabetes panel 09/20/18 09/21/18 Range/Units 13:30 06:10 Sodium 141 141 (137-145) mmol/L Potassium 4.5 4.4 (3.5-5.1) mmol/L Chloride 110 H 111 H (98-107) mmol/L Carbon Dioxide 25 24 (22-30) mmol/L BUN 26 H 21 H (7-17) mg/dL Creatinine 0.95 0.74 (0.52-1.04) mg/dL Glucose 117 H 93 (74-99) mg/dL Calcium 9.6 9.8 (8.4-10.2) mg/dL AST 16 (14-36) U/L ALT 21 (9-52) U/L Alkaline Phosphatase 69 (38-126) U/L Total Protein 6.6 (6.3-8.2) g/dL Albumin 3.9 (3.5-5.0) g/dL Triglycerides 101 (<150) mg/dL HDL Cholesterol 54 (40-60) mg/dL Calcium panel 09/20/18 09/21/18 Range/Units 13:30 06:10 Calcium 9.6 9.8 (8.4-10.2) mg/dL Albumin 3.9 (3.5-5.0) g/dL Pituitary panel 09/20/18 09/21/18 Range/Units 13:30 06:10 Sodium 141 141 (137-145) mmol/L Potassium 4.5 4.4 (3.5-5.1) mmol/L Chloride 110 H 111 H (98-107) mmol/L Carbon Dioxide 25 24 (22-30) mmol/L BUN 26 H 21 H (7-17) mg/dL Creatinine 0.95 0.74 (0.52-1.04) mg/dL Glucose 117 H 93 (74-99) mg/dL Calcium 9.6 9.8 (8.4-10.2) mg/dL Adrenal panel 09/20/18 09/21/18 Range/Units 13:30 06:10 Sodium 141 141 (137-145) mmol/L Potassium 4.5 4.4 (3.5-5.1) mmol/L Chloride 110 H 111 H (98-107) mmol/L Carbon Dioxide 25 24 (22-30) mmol/L BUN 26 H 21 H (7-17) mg/dL Creatinine 0.95 0.74 (0.52-1.04) mg/dL Glucose 117 H 93 (74-99) mg/dL Calcium 9.6 9.8 (8.4-10.2) mg/dL Total Bilirubin 0.5 (0.2-1.3) mg/dL AST 16 (14-36) U/L ALT 21 (9-52) U/L Alkaline Phosphatase 69 (38-126) U/L Total Protein 6.6 (6.3-8.2) g/dL Albumin 3.9 (3.5-5.0) g/dL - Imaging Additional studies: CT angiogram of the neck was reviewed. Carotid Doppler study was also reviewed. Assessment and Plan (1) Subclavian artery stenosis, left Current Visit: Yes Status: Acute Priority: Medium Code(s): I77.1 - STRICTURE OF ARTERY SNOMED Code(s): 94418061775465112 (2) Carotid artery stenosis Current Visit: Yes Status: Acute Priority: High Code(s): I65.29 - OCCLUSION AND STENOSIS OF UNSPECIFIED CAROTID ARTERY SNOMED Code(s): 79810313 (3) Diplopia Current Visit: Yes Status: Acute Priority: Low Code(s): H53.2 - DIPLOPIA SNOMED Code(s): 96195346 (4) Dizziness Current Visit: Yes Status: Acute Priority: Medium Code(s): R42 - DIZZINESS AND GIDDINESS SNOMED Code(s): 590109946 Plan: reviewed CT angiogram as well as carotid Doppler both of which demonstrated significant stenosis upwards to 80-99% on the left internal carotid artery. Her symptoms may correlate with combined carotid and subclavian artery disease but I don't believe at this time there is an emergent need for carotid endarterectomy. I did discuss this with the patient in full detail which she is in full understanding of the potential plan. At this time I agree with continuing her on aspirin, statin and her oral anticoagulation. I would recommend carotid endarterectomy to be done within the next week or 2 if she is cleared from a medical/cardiac standpoint. She will need medical clearance and if cleared we will schedule her for surgery next Saturday. We also discussed her subclavian artery stenosis which is severe but due to the fact she is not having significant symptoms this will be revisited after her carotid surgery. If after surgical intervention for the carotid she is having symptoms we will then discuss further intervention including subclavian stenting. Thank you for the consultation and if there is any questions please feel free to call my cell : [phone].
[2018-09-21] MEDS: RIVAROXABAN 20 MG TAB PO SCH (20:27)
[2018-09-21] MEDS ORDERED: ATORVASTATIN 40 MG TAB PO SCH (21:00)
[2018-09-21] MEDS ORDERED: ATORVASTATIN 10 MG TAB PO SCH (21:00)
--- NOTE | 2018-09-21 22:43 | P.PN ---
Subjective Progress Note Date: 09/21/18 This patient is a 68-year-old female who was admitted to hospital yesterday for sudden onset of diplopia and dizziness. Clinical history is one of severe left internal carotid artery stenosis of 80-99%. Her clinical symptoms suggest possibility of brainstem ischemia. We have recommended MRI of the brain to be done for further evaluation. Vascular surgery was consulted today for further evaluation. Dr. Pearson has evaluated the patient and her CAT scan and CTA angiogram of the head and neck results in detail with the patient today. Her clinical symptoms suggest possibility of combined carotid artery and subclavian artery disease symptomatically presenting to hospital. There is no emergent need for carotid endarterectomy at this time. She is to be continued on aspirin , statin, and her oral anticoagulation. Apparently plans are to proceed with left carotid endarterectomy next week. She will need clearance from medicine and cardiology. Plans are to deal with the carotid artery stenosis first and at a later date reevaluate the subclavian artery stenosis as well. Neurologically the patient remains stable today. She still has some findings of diplopia. She describes mostly of vertical diplopia. Once again we will await her MRI study to be done for further assessment of brainstem ischemia. We will continue close neurological follow-up with the patient during this admission. Objective - Vital Signs Vital signs: Vital Signs Temp 96.9 F L 09/21/18 15:43 Pulse 72 09/21/18 16:05 Resp 18 09/21/18 15:43 BP 127/62 09/21/18 15:43 Pulse Ox 97 09/21/18 15:52 Intake & Output 09/20/18 09/21/18 09/21/18 18:59 06:59 18:59 Intake Total 260 180 Output Total 0 Balance 260 180 Weight 110.6 kg 109.9 kg Intake: Oral 260 180 Output: Urine 0 Other: # Voids 1 3 - Exam Physical examination: PHYSICAL EXAMINATION: Patient is resting comfortably in bed. VITAL SIGNS: Blood pressure is [107/44]. Heart rate is [50]. Respiration is [20] . Temperature is [97.7]. HEENT: Head is atraumatic, neck is supple, there were no carotid bruits. CHEST: Lungs are clear to auscultation and percussion. CARDIAC: S1, S2 normal rate and rhythm. There is no murmur. ABDOMEN: Soft and nontender. Bowel sounds are present. EXTREMITIES: There is no pedal edema. Peripheral pulses are present. Neurological examination: Patient has a nonfocal neurological examination today. Patient still notices mild vertical diplopia on gaze testing. - Labs CBC & Chem 7: 09/21/18 06:10 09/21/18 06:10 Labs: Abnormal Lab Results - Last 24 Hours (Table) 09/21/18 09/21/18 Range/Units 06:10 06:10 Plt Count 144 L (150-450) k/uL Chloride 111 H (98-107) mmol/L BUN 21 H (7-17) mg/dL Assessment and Plan (1) Carotid artery stenosis Current Visit: Yes Status: Acute Priority: High Code(s): I65.29 - OCCLUSION AND STENOSIS OF UNSPECIFIED CAROTID ARTERY SNOMED Code(s): 07015975 (2) Diplopia Current Visit: Yes Status: Acute Priority: Low Code(s): H53.2 - DIPLOPIA SNOMED Code(s): 45175197 (3) Dizziness Current Visit: Yes Status: Acute Priority: Medium Code(s): R42 - DIZZINESS AND GIDDINESS SNOMED Code(s): 391864902 (4) Headache Current Visit: Yes Status: Acute Code(s): R51 - HEADACHE SNOMED Code(s): 21149021 Plan: This patient is a 68-year-old female being evaluated for possible brainstem ischemia and diplopia. Patient continues to experience mild vertical diplopia on gaze testing. She was seen today by vascular surgery and evaluated by Dr. Pearson and all of her studies were reviewed with her. Patient has evidence of severe left carotid artery stenosis as well as left subclavian artery stenosis. She is being considered for left carotid endarterectomy procedure next week. She will need medical and cardiology clearance. Neurologically she is showing still evidence of mild vertical diplopia. We have recommended MRI of the brain for further evaluation. We will continue close neurological follow-up with the patient during this admission. Overall prognosis remains guarded.
[2018-09-21 23:57] VITALS: RESP 16
[2018-09-22] MEDS: LEVOTHYROXINE 25 MCG TAB PO SCH (06:12)
[2018-09-22] MEDS: LEVOTHYROXINE 100 MCG TAB PO SCH (06:12)
[2018-09-22] MEDS: PANTOPRAZOLE 40 MG TABLET PO SCH (06:13)
[2018-09-22 07:25] LABS: Calcium 9.8 mg/dL (8.4-10.2); Potassium 4.7 mmol/L (3.5-5.1)
[2018-09-22] MEDS: IPRATROPIUM 0.5 MG/2.5 ML NEBU INHALATION SCH ×3 (07:35→16:17)
--- NOTE | 2018-09-22 07:35 | PN ---
PROGRESS NOTE DATE OF SERVICE: 09/21/2018 This 68-year-old woman was admitted with possible TIA is being closely monitored. Patient found to have significant carotid stenosis. Dr. Pearson is planning outpatient surgery next week, but however he would like to have a cardiac clearance prior to that. No chest pain or palpitation. PHYSICAL EXAMINATION: On exam, alert and oriented x3. Pulse 49, blood pressure 106/44, respiration 18, temperature 98.6. HEENT: Conjunctivae normal. NECK: No jugular venous distention. CARDIOVASCULAR: S1, S2 muffled. RESPIRATORY: Breath sounds diminished at the bases. No rhonchi, no crackles. ABDOMEN: Soft. NERVOUS SYSTEM: No focal deficits. LABS: Platelets 144. Otherwise, CBC, BMP noted. Lipids are normal. ASSESSMENT: 1. Diplopia as well as headache, possible acute transient ischemic attack, present on admission. 2. Severe stenosis of the left carotid artery more than 70% proximal. 3. 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 4. Mild 50% narrowing of the right proximal internal carotid artery. 5. Moderate atherosclerotic narrowing origin of the right vertebral artery. 6. Coronary artery disease. 7. Chronic obstructive pulmonary disease. 8. Hypertension. 9. Hypothyroidism. 10.History of left leg deep venous thrombosis. 11.Tonsillectomy. 12.History of previous cellulitis. RECOMMENDATIONS AND DISCUSSION: Recommend to continue current medication, continue with symptomatic treatment, continue with antiplatelet agents. I would also recommend Cardiology consultation for possible stress test preoperatively for clearance purposes. Otherwise, will continue to monitor. Guarded prognosis. Further recommendations to follow. Patient is on Xarelto also. MMODL / IJN: [id number] /
[2018-09-22] MEDS: SYMBICORT 160-4.5 MCG INHALER INHALATION SCH (07:38)
[2018-09-22 07:47] LABS: Basophils # (A) 0.1 k/uL (0-0.2); Basophils % (A) 1 %; Eosinophils # (A) 0.2 k/uL (0-0.7); Eosinophils % (A) 3 %; HCT 44.8 % (34.0-46.0); Lymphocytes # (A) 2.1 k/uL (1.0-4.8); Lymphocytes % (A) 33 %; MCH 29.3 pg (25.0-35.0); MCHC 31.2 g/dL (31.0-37.0); MCV 93.7 fL (80.0-100.0); Mean Platelet Volume 7.7; Monocytes # (A) 0.4 k/uL (0-1.0); Monocytes % (A) 6 %; Neutrophils # (A) 3.2 k/uL (1.3-7.7); Neutrophils % (A) 52 %; Platelet Count 140 k/uL (150-450); RBC 4.78 m/uL (3.80-5.40); RDW 13.5 % (11.5-15.5); WBC 6.2 k/uL (3.8-10.6)
[2018-09-22] MEDS: POTASSIUM CHLORIDE ER 10 MEQ TAB.ER.PRT PO SCH (08:08)
[2018-09-22] MEDS: FUROSEMIDE 40 MG TAB PO SCH (08:08)
[2018-09-22] MEDS: LISINOPRIL 10 MG TAB PO SCH (08:08)
[2018-09-22] MEDS: FAMOTIDINE 20 MG TAB PO SCH (08:08)
[2018-09-22] MEDS: ASPIRIN 325 MG TAB PO SCH (08:08)
[2018-09-22 13:58] LABS: T4, Free (Free Thyroxine) 3.15 ng/dL (0.78-2.19)
--- NOTE | 2018-09-22 14:18 | MR ---
EXAMINATION TYPE: MR brain wo con DATE OF EXAM: 09/22/2018 Comparison: CT brain 2 days ago. HISTORY: Patient with diplopia and dizziness per order. Left eye blurring and pain on admission 2 day s earlier. Abnormal CTA neck study. TECHNIQUE: Multiplanar, multisequence imaging of the brain and brainstem is performed without IV cont rast. FINDINGS: Diffusion weighted images demonstrate no evidence of a recent infarct or other diffusion abnormality. There is no worrisome extra-axial fluid collection. There is ventricular and sulcal prominence consis tent with and mild to moderate diffuse cerebral atrophy and prominent over bilateral frontal lobes. T here are scattered foci of T2 hyperintensity throughout the white matter bilaterally most prominent l eft centrum semioval level axial image 21. Lesions are nonspecific in appearance and distribution but most likely on basis of product of chronic small vessel ischemic change. Midline structures demonstrate normal morphology. The craniocervical junction appears within normal limits. Normal vascular flow voids are present. The visualized sinuses are clear and the globes are i ntact. IMPRESSION: 1. No evidence of a recent infarct. 2. Redemonstration of mild to moderate diffuse cerebral atrophy and chronic small vessel ischemic eunice nge.
--- NOTE | 2018-09-22 15:01 | CONS ---
CONSULTATION CHIEF COMPLAINT: TIA. HISTORY OF PRESENT ILLNESS: This is a 68-year-old lady with history of hypertension, dyslipidemia, chronic thromboembolic disease, hypothyroidism, bilateral varicose veins, who presented to the hospital having had sudden loss of vision. She has severe left internal carotid artery stenosis, also has subclavian artery stenosis. She needs carotid endarterectomy, seen by vascular surgeon and we were consulted for preop evaluation. There is no prior history of coronary artery disease, congestive heart failure, cardiac arrhythmia. There is no prior history of myocardial infarction. I do not have any assessment of her LV function from before. Patient is free of cardiac symptoms. PAST MEDICAL HISTORY: Significant for hypothyroidism, hypertension, dyslipidemia, COPD and chronic thromboembolic disease. MEDICATIONS: At home include Zocor 20 daily, Xarelto 20 daily, vitamin D, albuterol, Spiriva, K-Dur, Zestril 30 daily, levothyroxine, Lasix and Symbicort. ALLERGIES: TO TOBRAMYCIN AND CIPROFLOXACIN. FAMILY HISTORY: Family history is negative for premature coronary artery disease. SOCIAL HISTORY: She denies smoking, EtOH abuse or drug abuse. REVIEW OF SYSTEMS: HEENT is significant for visual changes. Cardiac negative. Respiratory negative. GI negative. negative. Allergy: Unremarkable. Skin negative. Musculoskeletal significant for arthritis. Psychosocial negative. Endocrine: Negative. Hematological negative. Derm negative. Constitutional negative. Oncological negative. ENVIRONMENTAL SERVICES AIDE significant for TIA. Rest of the system review is not relevant. PHYSICAL EXAM: Heart rate is 64 beats a minute, blood pressure is respirations 18. There is no jugular venous distention. Carotid upstroke is normal. There is no bruit. Chest exam reveals diminished air entry at the bases. Heart exam reveals first and second heart sounds. No gallop. No murmur. No rub. Abdomen is soft, nontender. Exam of extremities did not reveal any edema. Peripheral pulses are felt. EKG on this admission reveals sinus bradycardia without significant ST-T wave changes. LAB: Showed that the hemoglobin is 14, platelet count is 140, potassium is 4.7. Creatinine is normal at 0.8. LDL cholesterol is 82. We do not have a TSH. We will obtain one. ASSESSMENT: 1. Transient ischemic attack secondary to left carotid stenosis. 2. Hypertension. 3. Dyslipidemia. 4. Preop cardiac evaluation. PLAN: I will obtain a 2D echo to assess LV function. Surgery is to be scheduled within the next 2 weeks. I will get an outpatient stress test done on her and decide on further course of action. If that looks good, we will clear her for surgery. MMVANESSAL / IJN: [id number] /
[2018-09-22 16:08] VITALS: BP 127/44; TEMP 97.2
[2018-09-22 16:20] VITALS: PULSE 68
--- NOTE | 2018-09-22 18:15 | P.PN ---
Subjective Progress Note Date: 09/22/18 This patient is a 68-year-old female who was admitted to hospital yesterday for sudden onset of diplopia and dizziness. Clinical history is one of severe left internal carotid artery stenosis of 80-99%. Her clinical symptoms suggest possibility of brainstem ischemia. We have recommended MRI of the brain to be done for further evaluation. Vascular surgery was consulted today for further evaluation. Dr. Pearson has evaluated the patient and her CAT scan and CTA angiogram of the head and neck results in detail with the patient today. Her clinical symptoms suggest possibility of combined carotid artery and subclavian artery disease symptomatically presenting to hospital. There is no emergent need for carotid endarterectomy at this time. She is to be continued on aspirin , statin, and her oral anticoagulation. Apparently plans are to proceed with left carotid endarterectomy on Saturday of next week. She will need clearance from medicine and cardiology. Plans are to deal with the carotid artery stenosis first and at a later date reevaluate the subclavian artery stenosis as well. Neurologically the patient remains stable today. She still has some findings of diplopia. She describes mostly of vertical diplopia. Once again we will await her MRI study to be done for further assessment of brainstem ischemia. Patient was able to complete MRI of the brain today. MRI study fails to reveal any evidence of acute brain stem ischemia or stroke. We reviewed the results of the MRI today with the patient at bedside. She will follow-up with ophthalmology for further assessment of mild vertical diplopia. Patient will follow-up with vascular surgery is scheduled for possible left carotid endarterectomy next week. We will continue close neurological follow- up with the patient during this admission. Objective - Vital Signs Vital signs: Vital Signs Temp 97.2 F L 09/22/18 16:00 Pulse 68 09/22/18 16:27 Resp 16 09/22/18 16:00 BP 127/44 09/22/18 16:00 Pulse Ox 97 09/22/18 16:00 Intake & Output 09/21/18 09/22/18 09/22/18 18:59 06:59 18:59 Intake Total 360 720 Output Total 0 Balance 360 720 Weight 109.1 kg Intake: Oral 360 720 Output: Urine 0 Other: Voiding Method Toilet # Voids 1 3 1 - Exam Physical examination: PHYSICAL EXAMINATION: Patient is resting comfortably in bed. VITAL SIGNS: Blood pressure is [127/44]. Heart rate is [51]. Respiration is [16] . Temperature is [97.2]. HEENT: Head is atraumatic, neck is supple, there were no carotid bruits. CHEST: Lungs are clear to auscultation and percussion. CARDIAC: S1, S2 normal rate and rhythm. There is no murmur. ABDOMEN: Soft and nontender. Bowel sounds are present. EXTREMITIES: There is no pedal edema. Peripheral pulses are present. Neurological examination: Patient has a nonfocal neurological examination today. Patient still notices mild vertical diplopia on gaze testing. - Labs CBC & Chem 7: 09/22/18 06:34 09/22/18 06:34 Labs: Abnormal Lab Results - Last 24 Hours (Table) 09/22/18 09/22/18 09/22/18 Range/Units 06:34 06:34 06:34 Plt Count 140 L (150-450) k/uL Chloride 111 H (98-107) mmol/L BUN 23 H (7-17) mg/dL TSH <0.015 L (0.465-4.680) mIU/L Free T4 3.15 H (0.78-2.19) ng/dL Assessment and Plan (1) Carotid artery stenosis Current Visit: Yes Status: Acute Priority: High Code(s): I65.29 - OCCLUSION AND STENOSIS OF UNSPECIFIED CAROTID ARTERY SNOMED Code(s): 81897673 (2) Diplopia Current Visit: Yes Status: Acute Priority: Low Code(s): H53.2 - DIPLOPIA SNOMED Code(s): 45019870 (3) Dizziness Current Visit: Yes Status: Acute Priority: Medium Code(s): R42 - DIZZINESS AND GIDDINESS SNOMED Code(s): 737167031 (4) Headache Current Visit: Yes Status: Acute Code(s): R51 - HEADACHE SNOMED Code(s): 38971468 Plan: This patient is a 68-year-old female being evaluated for possible brainstem ischemia and diplopia. Patient continues to experience mild vertical diplopia on gaze testing. She was seen today by vascular surgery and evaluated by Dr. Pearson and all of her studies were reviewed with her. Patient has evidence of severe left carotid artery stenosis as well as left subclavian artery stenosis. She is being considered for left carotid endarterectomy procedure probably to stay of next week. She will need medical and cardiology clearance. Neurologically she is showing still evidence of mild vertical diplopia. We have recommended MRI of the brain for further evaluation. Patient was able to complete MRI of the brain today. MRI fails to reveal any evidence of acute stroke in the brainstem. She will follow-up with ophthalmology in regards to the mild vertical diplopia. Patient is being ready for discharge to home later today. We will continue close neurological follow-up with the patient during this admission. Patient may follow-up in the outpatient neurology clinic in 3- 4 weeks. Overall prognosis remains guarded.
--- NOTE | 2018-09-23 18:23 | ECHOF ---
Referral Reason:surgical clearance MEASUREMENTS -------- HEIGHT: 172.7 cm WEIGHT: 108.9 kg BP: IVSd: 1.1 cm (0.6 - 1.1) LVIDd: 3.9 cm (3.9 - 5.3) LVPWd: 1.0 cm (0.6 - 1.1) IVSs: 1.7 cm LVIDs: 2.7 cm LVPWs: 1.7 cm LAESV Index (A-L): 21.92 ml/m Ao Diam: 3.0 cm (2.0 - 3.7) AV Cusp: 1.6 cm (1.5 - 2.6) LA Diam: 3.1 cm (2.7 - 3.8) MV EXCURSION: 10.759 mm (> 18.000) MV EF SLOPE: 93 mm/s (70 - 150) EPSS: 1.2 cm MV E Ceasar: 0.94 m/s MV DecT: 245 ms MV A Ceasar: 0.97 m/s MV E/A Ratio: 0.97 AV maxP.98 mmHg AV meanP.19 mmHg RAP: 5.00 mmHg RVSP: 20.79 mmHg FINDINGS -------- Sinus rhythm. This was a technically good study. The left ventricular size is normal. Left ventricular wall thickness is normal. Overall left vent ricular systolic function is normal with, an EF between 55 - 60 %. The right ventricle is normal in size and function. The left atrial size is normal. The right atrial size is normal. Aortic valve is trileaflet and is mildly thickened. Mild mitral regurgitation is present. Mild tricuspid regurgitation present. The right ventricular systolic pressure, as measured by Doppl er, is 20.79mmHg. Pulmonic valve appears structurally normal. The aortic root size is normal. Normal inferior vena cava with normal inspiratory collapse consistent with estimated right atrial pre ssure of 5 mmHg. The pericardium is normal. CONCLUSIONS -------- 1. Sinus rhythm. 2. This was a technically good study. 3. The left ventricular size is normal. 4. Left ventricular wall thickness is normal. 5. Overall left ventricular systolic function is normal with, an EF between 55 - 60 %. 6. The right ventricle is normal in size and function. 7. The left atrial size is normal. 8. The right atrial size is normal. 9. Aortic valve is trileaflet and is mildly thickened. 10. Mild mitral regurgitation is present. 11. Mild tricuspid regurgitation present. 12. The right ventricular systolic pressure, as measured by Doppler, is 20.79mmHg. 13. Pulmonic valve appears structurally normal. 14. The aortic root size is normal. 15. Normal inferior vena cava with normal inspiratory collapse consistent with estimated right atrial pressure of 5 mmHg. 16. The pericardium is normal. PROFESSIONAL SKATEBOARDER: Peyton Alexander RDCS
[2018-09-29] MEDS ORDERED: ERGOCALCIFEROL 50,000 UNIT CAP PO SCH (09:00)
== END 2018-09-22 18:23 | disposition home or self-care (01) | DRG 68 ==
LOC: EC 12:19 → 3SCARD 16:03
PROVIDERS: ADMIT Hospitalist; ATTEND Hospitalist
DX: I65.22 Occlusion and stenosis of left carotid artery (principal); I11.0 Hypertensive heart disease with heart failure; I50.9 Heart failure, unspecified; J44.9 Chronic obstructive pulmonary disease, unspecified; E03.9 Hypothyroidism, unspecified; E78.5 Hyperlipidemia, unspecified; I25.10 Atherosclerotic heart disease of native coronary artery without angina pectoris; I83.93 Asymptomatic varicose veins of bilateral lower extremities; R51 Headache; M19.90 Unspecified osteoarthritis, unspecified site; R00.1 Bradycardia, unspecified; I70.8 Atherosclerosis of other arteries; Z79.51 Long term (current) use of inhaled steroids; Z79.899 Other long term (current) drug therapy; Z79.890 Hormone replacement therapy; Z88.1 Allergy status to other antibiotic agents; Z86.718 Personal history of other venous thrombosis and embolism; Z87.891 Personal history of nicotine dependence
CPT/HCPCS: 36415; 70450; 70496; 70498; 70551; 80048; 80053; 80061; 82550; 82553; 84439; 84443; 84484; 85025; 85610; 85730; 93005; 93306; 94640; 96360; 96361; 99285

== ENCOUNTER → 2018-09-26 | Outpatient (CLI) | payer MEDICARE | LOC: LABWHC1 09:30 | PROVIDERS: ATTEND Surgery | DX: Z01.812 Encounter for preprocedural laboratory examination (principal) | CPT/HCPCS: 86850; 86900; 86901 ==

== ENCOUNTER 2018-09-30 09:16 | Inpatient (IN) | payer MEDICARE ==
[2018-09-26 11:14] VITALS: BMI 36.5
[~2018-09-30 09:16] MED LIST changes: +DEXAMETHASONE SOD PHOSPHATE 10 MG/ML 1 ML VIAL IV ONE; +HYDROmorphone 0.5 MG/0.5 ML SYRINGE IVP PRN; -LACTATED RINGERS 1,000 ML IV SCH; +MIDAZOLAM (PF) 2 MG/2 ML VIAL IV PRN; +NITROGLYCERIN-D5W PMX 50 MG in DEXTROSE/WATER 1 250ML.BAG IV SCH; +ONDANSETRON 4 MG/2 ML VIAL IVP ONE; +PHENYLEPHRINE 40 MG in SODIUM CHLORIDE 0.9% 250 ML IV SCH; +SCOPOLAMINE 1.5MG/72HR PATCH TRANSDERM ONE; +ceFAZolin IN SWFI 2 GM/20 ML SYRINGE IVP ONE
[2018-09-30] MEDS: LACTATED RINGERS 1,000 ML IV SCH ×2 (10:22→18:55)
[2018-09-30] MEDS ORDERED: MIDAZOLAM 2 MG/2 ML VIAL ONE (12:32)
[2018-09-30] MEDS ORDERED: PHENYLEPHRINE-0.9% NACL SYG 1 MG/10 ML SYRINGE ONE (12:32)
[2018-09-30] MEDS ORDERED: SUCCINYLCHOLINE CHLORIDE 100 MG/5 ML SYR IV ONE (12:32)
[2018-09-30] MEDS ORDERED: PROPOFOL 10 MG/ML 20 ML VIAL IV ONE (12:32)
[2018-09-30] MEDS ORDERED: ROCURONIUM BROMIDE 10 MG/ML 10 ML VIAL IV ONE (12:32)
[2018-09-30] MEDS ORDERED: fentaNYL (PF) 50 MCG/ML 2 ML AMP ONE (12:32)
[2018-09-30] MEDS ORDERED: GLYCOPYRROLATE 0.2 MG/ML 2 ML VIAL ONE (12:32)
[2018-09-30] MEDS ORDERED: NEOSTIGMINE 1 MG/ML 10 ML VIAL ONE (12:32)
[2018-09-30] MEDS ORDERED: LABETALOL 5 MG/ML VIAL MDV ONE (12:32)
[2018-09-30] MEDS ORDERED: HEPARIN SODIUM,PORCINE 10,000 UNIT/ML 1 ML VIAL ONE (12:32)
[2018-09-30] MEDS ORDERED: LIDOCAINE 1% INJ 10MG/ML (20 ML MDV) IM ONE ×2 (13:32→14:48)
[2018-09-30] MEDS ORDERED: THROMBIN (BOVINE) 5,000 UNIT VIAL MISCELLANE ONE ×2 (13:33)
[2018-09-30] MEDS ORDERED: GELATIN SPONGE,ABSORB (LARGE) 1 EACH SPONGE MISCELLANE ONE (13:33)
[2018-09-30] MEDS ORDERED: LACTATED RINGERS 1,000 ML IV ONE ×3 (13:43→16:07)
[2018-09-30] MEDS ORDERED: MORPHINE SULFATE 2 MG/ML SYRINGE IVP PRN (14:37)
[2018-09-30] MEDS ORDERED: TRIMETHOBENZAMIDE 100 MG/ML 2 ML VIAL IM PRN (14:37)
[2018-09-30] MEDS ORDERED: BENZOCAINE/MENTHOL LOZENG 1 EACH LOZENGE MUCOUS MEM PRN (14:37)
[2018-09-30] MEDS ORDERED: HYDROcodone/APAP 5-325MG 1 EACH TAB PO PRN (14:37)
[2018-09-30] MEDS ORDERED: ACETAMINOPHEN TAB 325 MG TAB PO PRN (14:37)
[2018-09-30] MEDS ORDERED: MAG HYDROX/AL HYDROX/SIMETH 30 ML CUP PO PRN (14:37)
--- NOTE | 2018-09-30 14:54 | P.OP ---
Date of Procedure: 09/30/18 Preoperative Diagnosis: left internal carotid artery stenosis Postoperative Diagnosis: same Procedure(s) Performed: left carotid endarterectomy with patch angioplasty Implants: Bovine pericardial patch Anesthesia: ANDRES Surgeon: Garrett Pearson Social Staff Worker #1: Yuniel Castro Estimated Blood Loss (ml): 50 IV fluids (ml): 1,300 Urine output (ml): 550 Pathology: other (plaque) Condition: stable Disposition: PACU Indications for Procedure: 68-year-old female with history of coronary artery disease, COPD hypertension presents to the OR for elective left carotid endarterectomy secondary to severe left internal carotid artery stenosis which is demonstrated on carotid Doppler with 80-99%. Patient also had a CTA that demonstrated greater than 70% stenosis. She does have a history of dizziness but no evidence of TIA or CVA. When discussed with the patient she wanted her left carotid repaired due to elevated stenosis. Operative Findings: near occlusive stenosis of the internal carotid artery just at the takeoff. Description of Procedure: After written informed consent was obtained the patient all risks benefits and competitions were described the patient is brought to the operative suite and laid in a beachchair position. The neck was prepped and draped in usual sterile fashion after appropriate anesthetic was performed per the anesthesiologist. A timeout was performed and antibiotics were administered prior to incision. An oblique incision was created at the left neck just anterior to the sternocleidomastoid muscle and dissection was carried down to the carotid sheath. Upon dissection the facial vein was encountered this was suture ligated in normal fashion. Further dissection to the carotid artery was performed proximally and distally around the common, internal and external carotid arteries. All vessels were dissected in a circumferential manner and controlled with vessel loops. The ansa cervicalis was encountered and overlying the carotid vessel which was meticulously dissected free and spared. The hypoglossal and vagus nerve were also visualized and dissected around and spared. Once controlled patient was administered heparin and followed with serial ACTs for appropriate heparinization. Proximal and distal clamps were then placed and utilizing 11 blade scalpel an arteriotomy was created and extended with Pott Dillard scissors. Dense plaque was encountered at the bifurcation and takeoff of the internal carotid artery. Backbleeding was assessed and stump pressures were obtained demonstrating a stump pressure of 35 and therefore a Sundt shunt was chosen to be placed. Shunt was placed in normal fashion and secured. Endarterectomy was then performed with a [place] elevator with good feathering of the distal internal carotid plaque. There was some area of elevation and therefore this was tacked with a 7-0 Prolene suture. The area was copiously irrigated all free debris was removed. Patch angioplasty with a bovine pericardial patch was then performed with 6-0 Prolene suture in a running fashion. Prior to last sutures being placed the Sundt shunt was removed and the vessels were reclamped. Final sutures were placed and control was released from the external carotid artery first followed by the common to allow any debris to be flushed into the external system. Finally the internal carotid artery was released. Doppler signal was then heard distal to the patch and was multiphasic without any signs of obstruction. The area was then copiously irrigated with antibiotic solution. Hemostasis was assured with Gelfoam and thrombin. Once hemostatic a 10 TUCKER drain was placed and secured with nylon suture. Incision was then closed in a multilayer fashion. The skin was cleansed and dressings were placed. Patient tolerated procedure well and was awoken in the operating room was following commands and moving all extremities without any focal deficits. She was then sent to PACU for recovery.
[2018-09-30] MEDS ORDERED: IPRATROPIUM 0.5 MG/2.5 ML NEBU INHALATION SCH (16:00)
[2018-09-30 16:19] LABS: Glucose,Whole Blood 115 mg/dL (75-99)
[2018-09-30 16:45] LABS: Basophils % (A) 0 %; Eosinophils % (A) 0 %; HCT 39.3 % (34.0-46.0); HGB 12.3 gm/dL (11.4-16.0); Lymphocytes # (A) 0.6 k/uL (1.0-4.8); Lymphocytes % (A) 9 %; MCH 28.8 pg (25.0-35.0); MCHC 31.2 g/dL (31.0-37.0); MCV 92.2 fL (80.0-100.0); Monocytes # (A) 0.1 k/uL (0-1.0); Monocytes % (A) 2 %; Neutrophils % (A) 88 %; Platelet Count 156 k/uL (150-450); RBC 4.26 m/uL (3.80-5.40); RDW 13.4 % (11.5-15.5); WBC 6.9 k/uL (3.8-10.6)
[2018-09-30] MEDS ORDERED: IPRATROPIUM-ALBUTEROL 3 ML NEB INHALATION PRN (17:04)
--- NOTE | 2018-09-30 17:06 | P.CNPUL ---
History of Present Illness Consult date: 09/30/18 Requesting physician: Garrett Pearson Reason for consult: other Chief complaint: Carotid stenosis, status post left carotid endarterectomy History of present illness: This is a 68-year-old white female patient of Dr. Toscano with history of left carotid artery stenosis, who presented to the hospital on 09/30/2018 for elective left carotid endarterectomy with patch angioplasty. Carotid Doppler showed 80-99% stenosis of the left internal carotid artery. CTA of the head and neck showed 70% stenosis in the left carotid artery, was additional severe atherosclerotic stenosis in the proximal left subclavian artery. Patient was initially diagnosed with left subclavian artery stenosis when she came in for routine screening colonoscopy in August and there was an abnormal difference in blood pressure between 2 arms noted, with the right arm systolic pressure in the 120s, and the left arm systolic pressure in the 60s. Patient was hospitalized from September 20 through September 28 for symptoms of dizziness and vision changes, blurry vision, diplopia, no syncopal episodes, no unilateral weakness, or speech issues. Patient did admit to left hand weakness and intermittent numbness. Other medical history includes COPD, hypertension, hyperlipidemia, hypothyroidism, DJD, coronary artery disease, nicotine dependence currently in remission, and a DVT in the left lower leg 2014, patient is on chronic anticoagulation with Xarelto. 2-D echocardiogram was done on 09/23/2018, patient was in sinus rhythm, with preserved left ventricular systolic function with an EF of 55-60%, no PAH, mild MR and mild TR. Brain CT from 09/20/2018 showed no acute intracranial abnormality, brain MRI on 09/22/2018 showed no evidence of a recent infarct, redemonstration of mild to moderate diffuse cerebral atrophy and chronic small vessel ischemic changes. Today we are seeing the patient in evaluation in the intensive care unit, following her left carotid endarterectomy. She is resting comfortably in bed, in no acute distress, awake and alert oriented 3, does have an occasional congested cough, but no acute distress. She has never seen a lung specialist in the past, her maintenance inhalers include Symbicort and Spiriva. Her home inhalers and nebulized treatments were ordered. Patient is scheduled for repair of the left carotid artery stenosis by Dr. Pearson at a later date. We' re consulted for ICU management Review of Systems All systems: negative Constitutional: Denies chills, Denies fever Eyes: denies blurred vision, denies diplopia, denies pain Ears, nose, mouth and throat: Denies headache, Denies sore throat Cardiovascular: Denies chest pain, Denies shortness of breath Respiratory: Denies cough Gastrointestinal: Denies abdominal pain, Denies diarrhea, Denies nausea, Denies vomiting Genitourinary: Denies dysuria, Denies hematuria Musculoskeletal: Denies myalgias Integumentary: Denies pruritus, Denies rash Neurological: Denies numbness, Denies weakness Psychiatric: Denies anxiety, Denies depression Endocrine: Denies fatigue, Denies weight change Past Medical History Past Medical History: Coronary Artery Disease (CAD), COPD, Deep Vein Thrombosis (DVT), Hyperlipidemia, Hypertension, Thyroid Disorder Additional Past Medical History / Comment(s): left leg dvt History of Any Multi-Drug Resistant Organisms: None Reported Past Surgical History: Orthopedic Surgery, Tonsillectomy Additional Past Surgical History / Comment(s): jaw surgery secondary to trauma, artificial bone and metal remains in jaw, surgery done at [facility]. right arm surgery Past Anesthesia/Blood Transfusion Reactions: No Reported Reaction Smoking Status: Former smoker - Past Family History Father Family Medical History: No Reported History Additional Family Medical History / Comment(s): Father of suicide Mother Additional Family Medical History / Comment(s): Mother with high sugar "insulin stroke" emergency without prior known history. HX POLYPS Medications and Allergies Home Medications Medication Instructions Recorded Confirmed Type Albuterol Sulfate [Proair Hfa] 1 - 2 puff INHALATION RT-Q6H PRN 11/13/15 History Budesonide-Formot 160-4.5 Mcg 2 puff INHALATION RT-BID 11/13/15 09/30/18 History [Symbicort 160-4.5 Mcg Inhaler] Ergocalciferol [Vitamin D2 50,000 unit PO Q14D 11/13/15 09/30/18 History (DRISDOL)] Furosemide [Lasix] 40 mg PO DAILY 11/13/15 09/30/18 History Potassium Chloride [Klor-Con 10] 10 meq PO DAILY 11/13/15 09/30/18 History Rivaroxaban [Xarelto] 20 mg PO HS 11/13/15 09/30/18 History Tiotropium [place] [Spiriva] 1 cap INHALATION RT-DAILY 11/13/15 09/30/18 History Lisinopril [Zestril] 30 mg PO DAILY 08/25/18 09/30/18 History Aspirin 81 mg PO DAILY #30 chewable 09/22/18 09/30/18 Rx Atorvastatin Calcium [Lipitor] 80 mg PO HS #30 tablet 09/22/18 09/30/18 Rx Famotidine [Pepcid] 20 mg PO BID #60 tablet 09/22/18 09/30/18 Rx Levothyroxine Sodium [Levo-T] 250 mcg PO DAILY #30 tablet 09/22/18 09/30/18 Rx Allergies Allergy/AdvReac Type Severity Reaction Status Date / Time ciprofloxacin Allergy Swelling Verified 09/30/18 15:25 tobramycin Allergy Swelling Verified 09/30/18 15:25 Physical Exam Vitals: Vital Signs Temp Pulse Resp BP BP Pulse Ox 09/30/18 16:00 70 16 85/42 95/31 92 L 09/30/18 15:45 71 16 83/39 89/32 93 L 09/30/18 15:30 77 16 100/49 98/37 94 L 09/30/18 15:19 80 16 108/50 106/35 94 L 09/30/18 15:08 98.0 F 82 12 122/48 91 L 09/30/18 09:55 97.4 F L 74 16 181/75 99 Intake and Output 09/30/18 09/30/18 09/30/18 06:59 14:59 22:59 Intake Total 1300 500 Output Total 600 Balance 700 500 Intake: IV 1300 500 Output: Urine 550 Estimated Blood Loss 50 GENERAL EXAM: Alert, pleasant, 68-year-old white female, comfortable in no apparent distress. HEAD: Normocephalic/atraumatic. EYES: Normal reaction of pupils, equal size. Conjunctiva pink, sclera white. NOSE: Clear with pink turbinates. THROAT: No erythema or exudates. NECK: No masses, no JVD, no thyroid enlargement, no adenopathy. Left neck incision is clean dry and intact, soft, no evidence of hematoma, trachea midline CHEST: No chest wall deformity. Symmetrical expansion. LUNGS: Equal air entry with no crackles, wheeze, rhonchi or dullness. CVS: Regular rate and rhythm, normal S1 and S2, no gallops, no murmurs, no rubs ABDOMEN: Soft, nontender. No hepatosplenomegaly, normal bowel sounds, no guarding or rigidity. EXTREMITIES: No clubbing, no edema, no cyanosis, 2+ pulses and upper and lower extremities. MUSCULOSKELETAL: Muscle strength and tone normal. SPINE: No scoliosis or deformity SKIN: No rashes CENTRAL NERVOUS SYSTEM: Alert and oriented -3. No focal deficits, tone is normal in all 4 extremities. PSYCHIATRIC: Alert and oriented -3. Appropriate affect. Intact judgment and insight. Results - Laboratory Findings CBC and BMP: 09/30/18 16:40 - Diagnostic Findings Additional studies: Brain MRI, brain CT, angiography CT of the brain, carotid ultrasound reviewed Assessment and Plan Plan: Assessment: #1. Severe left carotid artery stenosis, status post left carotid endarterectomy with patch angioplasty #2. Recent hospitalization for symptoms of dizziness, blurred vision, diplopia , headache. And underwent neurologic evaluation, computed tomography scan of the brain and CT angiogram of the head and neck did not reveal any acute intracranial abnormality, however reveals severe sclerotic narrowing of the left subclavian artery, and severe left carotid artery stenosis greater than 70% . #3. Severe left subclavian artery stenosis, with symptoms of left arm numbness , weakness, and abnormal difference in blood pressure between the 2 arms, patient will have the surgery for repair by Dr. Pearson at a later date #4. History of coronary artery disease #5. History of COPD, baseline FEV1 is unknown, not oxygen dependent at baseline #6. Hypertension #7. Hyperlipidemia #8. Hypothyroidism #9. History of nicotine dependence, currently in remission, carries a 48-pack- year smoking history, smoking 2 years ago #10. History of left leg DVT in 2015 on chronic anticoagulation with Xarelto #11. Diplopia, dizziness, and patient is scheduled to undergo ophthalmological evaluation as an outpatient Plan: Patient is doing well, hemodynamically stable, continue with pain control, close hemodynamic monitoring, home inhalers and nebulized treatments have been reordered, patient does have a congested cough. Continue GI and DVT prophylaxis as ordered by surgery. Continue oral Xarelto, we'll switch Atrovent to DuoNeb nebulized treatments. We'll continue to follow. I performed a history & physical examination of the patient and discussed their management with my nurse practitioner, Ghada Marquez. I reviewed the nurse practitioner's note and agree with the documented findings and plan of care. Lung sounds are positive for clear breath sounds. The findings and the impression was discussed with the patient. I attest to the documentation by the nurse practitioner. Time with Patient: Greater than 30
[2018-09-30 17:36] LABS: Anion Gap 4 mmol/L; Blood Urea Nitrogen 18 mg/dL (7-17); Calcium 9.1 mg/dL (8.4-10.2); Carbon Dioxide 26 mmol/L (22-30); Chloride 113 mmol/L (98-107); Glucose 120 mg/dL (74-99); Potassium 4.3 mmol/L (3.5-5.1); Sodium 143 mmol/L (137-145)
[2018-09-30] MEDS ORDERED: NOREPINEPHRINE 4 MG in SODIUM CHLORIDE 0.9% 250 ML IV SCH (18:30)
[2018-09-30] MEDS: HEPARIN SODIUM,PORCINE 5,000 UNIT/ML 1 ML VIAL SQ SCH (18:53)
[2018-09-30] MEDS: FAMOTIDINE 20 MG TAB PO SCH (19:57)
[2018-09-30] MEDS: ATORVASTATIN 80 MG TAB PO SCH (19:57)
[2018-09-30] MEDS: SYMBICORT 160-4.5 MCG INHALER INHALATION SCH (21:09)
[2018-09-30] MEDS: IPRATROPIUM-ALBUTEROL 3 ML NEB INHALATION SCH (21:09)
[2018-10-01] MEDS: HEPARIN SODIUM,PORCINE 5,000 UNIT/ML 1 ML VIAL SQ SCH ×3 (00:30→15:36)
[2018-10-01] MEDS: LACTATED RINGERS 1,000 ML IV SCH ×4 (04:08→16:48)
[2018-10-01 05:36] LABS: HCT 42.8 % (34.0-46.0); HGB 13.3 gm/dL (11.4-16.0); MCH 29.5 pg (25.0-35.0); MCHC 31.1 g/dL (31.0-37.0); MCV 95.1 fL (80.0-100.0); Mean Platelet Volume 7.5; Platelet Count 174 k/uL (150-450); RDW 13.4 % (11.5-15.5); WBC 11.6 k/uL (3.8-10.6)
[2018-10-01 05:51] LABS: Calcium 9.5 mg/dL (8.4-10.2); Magnesium 1.8 mg/dL (1.6-2.3); Phosphorus 4.9 mg/dL (2.5-4.5); Potassium 4.6 mmol/L (3.5-5.1)
[2018-10-01] MEDS ORDERED: LEVOTHYROXINE 125 MCG TAB PO SCH (06:30)
[2018-10-01] MEDS: IPRATROPIUM-ALBUTEROL 3 ML NEB INHALATION SCH ×4 (08:08→21:16)
[2018-10-01] MEDS: SYMBICORT 160-4.5 MCG INHALER INHALATION SCH ×2 (08:08→21:16)
[2018-10-01] MEDS: FAMOTIDINE 20 MG TAB PO SCH ×2 (08:46→21:58)
[2018-10-01] MEDS: ASPIRIN 81 MG PO SCH (08:46)
[2018-10-01] MEDS ORDERED: LISINOPRIL 10 MG TAB PO SCH (09:00)
[2018-10-01] MEDS ORDERED: FUROSEMIDE 40 MG TAB PO SCH (09:00)
[2018-10-01] MEDS: POTASSIUM CHLORIDE ER 10 MEQ TAB.ER.PRT PO SCH (11:06)
[2018-10-01] MEDS ORDERED: SODIUM CHLORIDE 0.9% 500 ML 500 ML IV ONE ×2 (13:34→18:34)
--- NOTE | 2018-10-01 16:11 | P.PN ---
Subjective Progress Note Date: 10/01/18 Principal diagnosis: Carotid stenosis. Status post left carotid endarterectomy Patient is evaluated today status post left carotid endarterectomy. Patient voices no complaints. Physical examination revealed tongue to be midline. There is no facial droop. Equal motor strength in the upper extremities is noted. The patient's mean arterial blood pressure has been somewhat lower than normal. She is currently not on any pressors whenever I believe continued to 12-24 hours of observation would be appropriate given the patient's systolic blood pressure. Otherwise she is doing well. This was discussed with the patient. All questions were answered to patient's satisfaction. Objective - Vital Signs Vital signs: Vital Signs Temp 97.9 F 10/01/18 12:00 Pulse 55 L 10/01/18 16:03 Resp 20 10/01/18 15:00 BP 98/38 10/01/18 15:00 Pulse Ox 95 10/01/18 15:00 Intake & Output 09/30/18 10/01/18 10/01/18 18:59 06:59 18:59 Intake Total 2460.625 7707.537 3753.876 Output Total 660 310 120 Balance 1800.625 824.470 8806.876 Weight 117 kg 122.2 kg Intake: IV 2460 960 800 Lactated Ringers 1,000 ml 660 960 300 @ 20 mls/hr IV .Q24H [facility] Rx#:[id number] Sodium Chloride 0.9% 500 500 ml 500 ml @ 999 mls/hr IV .Q31M [facility] Rx#:[id number] Intake, IV Titration 0.625 178.250 41.876 Amount Norepinephrine 4 mg In 0.625 178.250 41.876 Sodium Chloride 0.9% 250 ml @ Titrate IV .Q0M [facility] Rx#:[id number] Oral 340 Blood Product 240 Output: Drainage 10 Left Neck 10 Urine 610 310 110 Estimated Blood Loss 50 Other: Voiding Method Indwelling Catheter Indwelling Catheter Toilet ABP, PAP, CO, CI - Last Documented Arterial Blood Pressure 71/58 - Labs CBC & Chem 7: 10/01/18 05:10 10/01/18 05:10 Labs: Abnormal Lab Results - Last 24 Hours (Table) 09/30/18 09/30/18 09/30/18 Range/Units 16:16 16:40 17:05 WBC (3.8-10.6) k/uL Lymphocytes # 0.6 L (1.0-4.8) k/uL Chloride 113 H (98-107) mmol/L BUN 18 H (7-17) mg/dL Glucose 120 H (74-99) mg/dL POC Glucose (mg/dL) 115 H (75-99) mg/dL Phosphorus (2.5-4.5) mg/dL 10/01/18 10/01/18 Range/Units 05:10 05:10 WBC 11.6 H (3.8-10.6) k/uL Lymphocytes # (1.0-4.8) k/uL Chloride 112 H (98-107) mmol/L BUN 21 H (7-17) mg/dL Glucose 122 H (74-99) mg/dL POC Glucose (mg/dL) (75-99) mg/dL Phosphorus 4.9 H (2.5-4.5) mg/dL
--- NOTE | 2018-10-01 17:38 | P.PN ---
Subjective Progress Note Date: 10/01/18 On today's evaluation of 10/01/2018 the patient is postop day #1 post left carotid endarterectomy. The patient is doing well. No complaints. The TUCKER drain is still in place with minimal amount of output. No difficulties with swallowing. No difficulty to voice. Surgical wound site is dry clean and intact. Note that overnight the patient required pressors. The patient was placed on levo fed there was discontinued earlier this morning. Her diastolic pressure remains low which is evidence of bringing her mean arterial pressure down. Nevertheless she is asymptomatic. No dizziness. No headaches. No lightheadedness. She is answering all questions and she is now having any focal neurological deficit. Her blood pressures gradually normalizing. Cardiac rhythm is still sinus. She received IV fluids. She has a stable renal function with a creatinine of 0.8. Hemoglobin is at 13.3. No other significant events overnight. Objective - Vital Signs Vital signs: Vital Signs Temp 97.8 F 10/01/18 16:00 Pulse 56 L 10/01/18 17:30 Resp 20 10/01/18 17:30 BP 92/43 10/01/18 17:30 Pulse Ox 100 10/01/18 17:30 Intake & Output 09/30/18 10/01/18 10/01/18 18:59 06:59 18:59 Intake Total 2460.625 8841.421 0312.876 Output Total 660 310 150 Balance 1800.625 292.004 3842.876 Weight 117 kg 122.2 kg Intake: IV 2460 960 920 Lactated Ringers 1,000 ml 100 @ 100 mls/hr IV .Q10H [facility] Rx#:[id number] Lactated Ringers 1,000 ml 660 960 320 @ 20 mls/hr IV .Q24H [facility] Rx#:[id number] Sodium Chloride 0.9% 500 500 ml 500 ml @ 999 mls/hr IV .Q31M [facility] Rx#:[id number] Intake, IV Titration 0.625 178.250 41.876 Amount Norepinephrine 4 mg In 0.625 178.250 41.876 Sodium Chloride 0.9% 250 ml @ Titrate IV .Q0M [facility] Rx#:[id number] Oral 460 Blood Product 240 Output: Drainage 10 Left Neck 10 Urine 610 310 140 Estimated Blood Loss 50 Other: Voiding Method Indwelling Catheter Indwelling Catheter Toilet ABP, PAP, CO, CI - Last Documented Arterial Blood Pressure 71/58 - Exam Appearance the patient is calm comfortable likely distress HEAD: Normocephalic/atraumatic. EYES: Normal reaction of pupils, equal size. Conjunctiva pink, sclera white. NOSE: Clear with pink turbinates. THROAT: No erythema or exudates. NECK: No masses, no JVD, no thyroid enlargement, no adenopathy. Left neck incision is clean dry and intact, soft, no evidence of hematoma, trachea midline. The TUCKER drain is still in place with limited amount of output. CHEST: No chest wall deformity. Symmetrical expansion. LUNGS: Equal air entry with no crackles, wheeze, rhonchi or dullness. CVS: Regular rate and rhythm, normal S1 and S2, no gallops, no murmurs, no rubs ABDOMEN: Soft, nontender. No hepatosplenomegaly, normal bowel sounds, no guarding or rigidity. EXTREMITIES: No clubbing, no edema, no cyanosis, 2+ pulses and upper and lower extremities. MUSCULOSKELETAL: Muscle strength and tone normal. SPINE: No scoliosis or deformity SKIN: No rashes CENTRAL NERVOUS SYSTEM: Alert and oriented -3. No focal deficits, tone is normal in all 4 extremities. PSYCHIATRIC: Alert and oriented -3. Appropriate affect. Intact judgment and insight - Labs CBC & Chem 7: 10/01/18 05:10 10/01/18 05:10 Labs: Abnormal Lab Results - Last 24 Hours (Table) 09/30/18 10/01/18 10/01/18 Range/Units 17:05 05:10 05:10 WBC 11.6 H (3.8-10.6) k/uL Chloride 113 H 112 H (98-107) mmol/L BUN 18 H 21 H (7-17) mg/dL Glucose 120 H 122 H (74-99) mg/dL Phosphorus 4.9 H (2.5-4.5) mg/dL Assessment and Plan Plan: #1. Severe left carotid artery stenosis, status post left carotid endarterectomy with patch angioplasty, the patient is postop day #1. The patient had developed postoperative hypotension requiring fluids and pressors and the patient is back to her normal hemodynamic status and the patient is currently off pressors. She is producing adequate amount of urine output. No neurological deficit at this point in time. She is back on Xarelto. #2. Recent hospitalization for symptoms of dizziness, blurred vision, diplopia , headache. And underwent neurologic evaluation, computed tomography scan of the brain and CT angiogram of the head and neck did not reveal any acute intracranial abnormality, however reveals severe sclerotic narrowing of the left subclavian artery, and severe left carotid artery stenosis greater than 70% . #3. Severe left subclavian artery stenosis, with symptoms of left arm numbness , weakness, and abnormal difference in blood pressure between the 2 arms, patient will have the surgery for repair by Dr. Pearson at a later date #4. History of coronary artery disease, currently free of any chest pain #5. History of COPD, baseline FEV1 is unknown, not oxygen dependent at baseline , maintained on a combination of Spiriva and Symbicort on outpatient basis. #6. Hypertension #7. Hyperlipidemia #8. Hypothyroidism #9. History of nicotine dependence, currently in remission, carries a 48-pack- year smoking history, smoking 2 years ago #10. 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 Diplopia, dizziness, and patient is scheduled to undergo ophthalmological evaluation as an outpatient Plan The patient is doing well. No specific complaints for now. Monitor hemodynamics. Monitor blood pressure. Resume outpatient medications with the exception of her Zestril for now. Monitor the blood pressure. Restart and to coagulation with Xarelto. Ambulate this patient the hallway. Management of the TUCKER drain. Vascular surgery. We'll continue to follow.
--- NOTE | 2018-10-01 17:49 | CONS ---
CONSULTATION DATE OF CONSULTATION: 10/01/2018 REASON FOR CONSULTATION: Medical management requested by Dr. Pearson. CONSULTATION: This is a pleasant 68-year-old patient who follows with Dr. Toscano. The patient was recently in the hospital and went home on 09/22/2018. The patient then was diagnosed to have a brainstem TIA and found to have left internal carotid artery stenosis more than 70%. The patient was seen by Dr. Pearson then and patient underwent left carotid endarterectomy yesterday. The patient has got a drain in place which is doing fine. Initially blood pressure was running low. Patient did get a fluid bolus and also was on Levophed, which was taken off earlier today. Patient does feel a bit tired and rundown. No chest pain. No palpitation. Patient's chronic stable medical conditions include coronary artery disease, COPD, hyperlipidemia, hypertension, hypothyroid. Sitting up on a chair. Family is present. REVIEW OF SYSTEMS: CONSTITUTIONAL: Tired. HEENT: None. RESPIRATORY: None. GASTROINTESTINAL: None. GENITOURINARY: None. MUSCULOSKELETAL: None. DERMATOLOGICAL: None. HEMATOLOGICAL: None. LYMPHATICS: None. PSYCHIATRY: None. NEUROLOGICAL: None. PAST MEDICAL HISTORY: 1. Brainstem TIA two weeks ago. 2. Coronary artery disease. 3. COPD. 4. Hyperlipidemia. 5. Hypertension. 6. Hypothyroid. 7. Left carotid artery stenosis more than 70% and 50% narrowing of the right internal carotid artery. 8. Left leg DVT. PAST SURGICAL HISTORY: 1. Tonsillectomy. 2. Jaw surgery secondary to trauma. Artificial bone and metal remains in the jaw. 3. Right arm surgery. SOCIAL HISTORY: Did smoke in the past. Alcohol occasionally. FAMILY HISTORY: Father committed suicide. HOME MEDICATIONS: 1. Spiriva 1 capsule daily. 2. Xarelto 20 mg at bedtime. 3. Potassium 10 mEq a day. 4. Zestril 30 mg p.o. daily. 5. Levothyroxine 250 mcg a day. 6. Lasix 40 mg a day. 7. Pepcid 20 mg b.i.d. 8. Vitamin D2 50,000 units every 14 days. 9. Symbicort 160/4.5 two puffs b.i.d. 10.Lipitor 80 mg at bedtime. 11.Aspirin 81 mg a day. 12.ProAir 1 to 2 puffs q.6 p.r.n. ALLERGIES: CIPRO AND TOBRAMYCIN. PHYSICAL EXAMINATION: Afebrile. Pulse 53, respiration 16, blood pressure 87/54, pulse ox 97%. GENERAL APPEARANCE: Well built; BMI 41. Sitting up in a chair, tired-appearing. EYES: Pupils equal. Conjunctivae slightly pale. HEENT: External appearance of nose and ears normal. Oral cavity normal. NECK: Dressing over the left neck with a drain in place. RESPIRATORY: Effort normal. Lungs are clear. CARDIOVASCULAR: First and second sounds normal. No edema. ABDOMEN: Soft, non-tender. Liver and spleen not palpable. LYMPHATIC: No lymph node palpable in neck or axillae. PSYCHIATRY: Alert and oriented x3. Mood and affect normal. NEUROLOGICAL: Pupils equal. Cranial nerves grossly intact. Power and sensation grossly intact. INVESTIGATIONS: White count 6.9, repeat 11.6. Hemoglobin 12.3, repeat 13.3. Potassium 4.3, BUN 18, creatinine 0.72. ASSESSMENT: 1. Left carotid endarterectomy with patch angioplasty with estimated blood loss of 50 mL. 2. Coronary artery disease. 3. Chronic obstructive pulmonary disease. 4. Hyperlipidemia. 5. Essential hypertension, history of. 6. Hypothyroid. 7. Narrowing in the proximal right internal carotid artery about 50%. 8. Morbid obesity; body mass index of 41.0. 9. Acute hypotension. Not much blood was lost during surgery and there is not too much blood in the drain in the left neck. It is unclear at this point, but the patient will need IV fluids. PLAN: Patient was on Levophed initially with fluids. Will put the patient on IV fluids. Patient has no cardiac symptoms at all. Patient recently a week ago had a 2D echo that showed good EF with an EF of 55% to 60%. Other home medications are resumed. Patient's Lasix and Zestril have been held held off. Patient is back on Xarelto. Care was discussed with the patient. Questions were answered. Will follow closely. MMODL / IJN: [id number] /
[2018-10-01] MEDS ORDERED: RIVAROXABAN 20 MG TAB PO SCH (21:00)
[2018-10-01] MEDS: ATORVASTATIN 80 MG TAB PO SCH (21:58)
[2018-10-02] MEDS: LACTATED RINGERS 1,000 ML IV SCH (01:39)
[2018-10-02 05:40] LABS: HCT 37.6 % (34.0-46.0); HGB 11.8 gm/dL (11.4-16.0); MCH 29.9 pg (25.0-35.0); MCHC 31.4 g/dL (31.0-37.0); MCV 95.2 fL (80.0-100.0); Mean Platelet Volume 7.7; Platelet Count 124 k/uL (150-450); RBC 3.95 m/uL (3.80-5.40); RDW 13.5 % (11.5-15.5); WBC 6.8 k/uL (3.8-10.6)
[2018-10-02 05:52] LABS: Calcium 9.1 mg/dL (8.4-10.2); Magnesium 1.9 mg/dL (1.6-2.3); Phosphorus 4.4 mg/dL (2.5-4.5); Potassium 4.6 mmol/L (3.5-5.1)
[2018-10-02] MEDS ORDERED: LEVOTHYROXINE 100 MCG TAB PO SCH (06:14)
[2018-10-02] MEDS ORDERED: Magnesium Replacement Protocol 1 EACH MISC MISCELLANE PRN (07:17)
[2018-10-02] MEDS: FAMOTIDINE 20 MG TAB PO SCH (08:14)
[2018-10-02] MEDS: ASPIRIN 81 MG PO SCH (08:14)
[2018-10-02] MEDS: MAGNESIUM SULFATE-D5W PMX 1 GM in DEXTROSE/WATER 1 100ML.BAG IVPB SCH ×2 (08:14→09:49)
[2018-10-02] MEDS: SYMBICORT 160-4.5 MCG INHALER INHALATION SCH (09:39)
[2018-10-02] MEDS: IPRATROPIUM-ALBUTEROL 3 ML NEB INHALATION SCH ×2 (09:39→10:55)
[2018-10-02] MEDS: POTASSIUM CHLORIDE ER 10 MEQ TAB.ER.PRT PO SCH (10:40)
--- NOTE | 2018-10-02 11:28 | P.PN ---
Subjective Progress Note Date: 10/02/18 Principal diagnosis: Left ICA stenosis Patient has minimal discomfort. She has no neurologic symptoms. Objective - Vital Signs Vital signs: Vital Signs Temp 97.9 F 10/02/18 08:00 Pulse 63 10/02/18 11:07 Resp 16 10/02/18 10:00 BP 91/70 10/02/18 10:00 Pulse Ox 91 L 10/02/18 10:00 Intake & Output 10/01/18 10/02/18 10/02/18 18:59 06:59 18:59 Intake Total 2001.876 1200 1300 Output Total 150 100 400 Balance 2674.418 6595 900 Weight 124.2 kg Intake: IV 1020 1200 700 Lactated Ringers 1,000 ml 200 1200 400 @ 100 mls/hr IV .Q10H [facility] Rx#:[id number] Lactated Ringers 1,000 ml 320 @ 20 mls/hr IV .Q24H [facility] Rx#:[id number] Magnesium Sulfate-D5w Pmx 300 1 gm In Dextrose/Water 1 100ml.bag @ 100 mls/hr IVPB Q1H [facility] Rx#: [id number] Sodium Chloride 0.9% 500 500 ml 500 ml @ 999 mls/hr IV .Q31M [facility] Rx#:[id number] Intake, IV Titration 41.876 Amount Norepinephrine 4 mg In 41.876 Sodium Chloride 0.9% 250 ml @ Titrate IV .Q0M [facility] Rx#:[id number] Oral 700 600 Blood Product 240 Output: Drainage 10 Left Neck 10 Urine 140 100 400 Other: Voiding Method Toilet Toilet Toilet # Voids 0 1 ABP, PAP, CO, CI - Last Documented Arterial Blood Pressure 71/58 - Exam Neck incision is clean and dry. There is no significant swelling or redness. Neurologically intact. Vital signs stable with a blood pressure now of over 110. - Labs CBC & Chem 7: 10/02/18 05:30 10/02/18 05:30 Labs: Abnormal Lab Results - Last 24 Hours (Table) 10/02/18 10/02/18 Range/Units 05:30 05:30 Plt Count 124 L (150-450) k/uL Chloride 110 H (98-107) mmol/L BUN 28 H (7-17) mg/dL Assessment and Plan (1) Stenosis of left carotid artery without cerebral infarction Current Visit: Yes Status: Acute Code(s): I65.22 - OCCLUSION AND STENOSIS OF LEFT CAROTID ARTERY SNOMED Code(s): 929347713838526 Plan: The patient is recovered nicely from her left carotid endarterectomy. We gave her in depth wound care instructions. She will slowly increase activities as tolerated. She will resume and continue all of her home medications except for Zestril and Lasix. She will see her family doctor early next week to consider reinstituting these medications.
[2018-10-02 11:35] VITALS: BP 112/98; PULSE 69
[2018-10-02 12:16] VITALS: RESP 21; TEMP 98
--- NOTE | 2018-10-02 16:37 | P.PN ---
Subjective Progress Note Date: 10/02/18 On today's evaluation 10/02/2018 the patient is postop day #2 regarding her left carotid endarterectomy. There drain has been removed. The patient has no bleeding from the incision site which is dry clean and intact. No new complaints. Hemodynamically stable. Blood pressure is well maintained with a mean arterial pressure above 60. Adequate urine output. No chest pain. No dizziness pain no focal neurological deficits. No other significant events overnight. The patient is otherwise doing extremely well in the plan is to discharge this patient home today with outpatient follow-up. Objective - Vital Signs Vital signs: Vital Signs Temp 98 F 10/02/18 12:00 Pulse 69 10/02/18 12:00 Resp 21 10/02/18 12:00 BP 112/98 10/02/18 12:00 Pulse Ox 97 10/02/18 12:00 Intake & Output 10/01/18 10/02/18 10/02/18 18:59 06:59 18:59 Intake Total 2001.876 1200 1420 Output Total 150 100 400 Balance 6717.826 7365 1020 Weight 124.2 kg Intake: IV 1020 1200 700 Lactated Ringers 1,000 ml 200 1200 400 @ 100 mls/hr IV .Q10H DEZ Rx#:[id number] Lactated Ringers 1,000 ml 320 @ 20 mls/hr IV .Q24H DEZ Rx#:[id number] Magnesium Sulfate-D5w Pmx 300 1 gm In Dextrose/Water 1 100ml.bag @ 100 mls/hr IVPB Q1H DEZ Rx#: [id number] Sodium Chloride 0.9% 500 500 ml 500 ml @ 999 mls/hr IV .Q31M ONE Rx#:[id number] Intake, IV Titration 41.876 Amount Norepinephrine 4 mg In 41.876 Sodium Chloride 0.9% 250 ml @ Titrate IV .Q0M DEZ Rx#:[id number] Oral 700 720 Blood Product 240 Output: Drainage 10 Left Neck 10 Urine 140 100 400 Other: Voiding Method Toilet Toilet Toilet # Voids 0 1 ABP, PAP, CO, CI - Last Documented Arterial Blood Pressure 71/58 - Exam Appearance the patient is calm comfortable likely distress HEAD: Normocephalic/atraumatic. EYES: Normal reaction of pupils, equal size. Conjunctiva pink, sclera white. NOSE: Clear with pink turbinates. THROAT: No erythema or exudates. NECK: No masses, no JVD, no thyroid enlargement, no adenopathy. Left neck incision is clean dry and intact, soft, no evidence of hematoma, trachea midline. The TUCKER drain is removed and the incision is dry clean and intact. CHEST: No chest wall deformity. Symmetrical expansion. LUNGS: Equal air entry with no crackles, wheeze, rhonchi or dullness. CVS: Regular rate and rhythm, normal S1 and S2, no gallops, no murmurs, no rubs ABDOMEN: Soft, nontender. No hepatosplenomegaly, normal bowel sounds, no guarding or rigidity. EXTREMITIES: No clubbing, no edema, no cyanosis, 2+ pulses and upper and lower extremities. MUSCULOSKELETAL: Muscle strength and tone normal. SPINE: No scoliosis or deformity SKIN: No rashes CENTRAL NERVOUS SYSTEM: Alert and oriented -3. No focal deficits, tone is normal in all 4 extremities. PSYCHIATRIC: Alert and oriented -3. Appropriate affect. Intact judgment and insight - Labs CBC & Chem 7: 10/02/18 05:30 10/02/18 05:30 Labs: Abnormal Lab Results - Last 24 Hours (Table) 10/02/18 10/02/18 Range/Units 05:30 05:30 Plt Count 124 L (150-450) k/uL Chloride 110 H (98-107) mmol/L BUN 28 H (7-17) mg/dL Assessment and Plan Plan: #1. Severe left carotid artery stenosis, status post left carotid endarterectomy with patch angioplasty, the patient is postop day #2. The patient developed some postoperative hypotension ultimately the blood pressure stabilized and she has been off pressors for the past 24 hours. Doing extremely well. Adequate urine output. The drain has been removed. Incision is dry clean and intact. #2. Recent hospitalization for symptoms of dizziness, blurred vision, diplopia , headache. And underwent neurologic evaluation, computed tomography scan of the brain and CT angiogram of the head and neck did not reveal any acute intracranial abnormality, however reveals severe sclerotic narrowing of the left subclavian artery, and severe left carotid artery stenosis greater than 70% . #3. Severe left subclavian artery stenosis, with symptoms of left arm numbness , weakness, and abnormal difference in blood pressure between the 2 arms, patient will have the surgery for repair by Dr. Pearson at a later date #4. History of coronary artery disease, currently free of any chest pain #5. History of COPD, baseline FEV1 is unknown, not oxygen dependent at baseline , maintained on a combination of Spiriva and Symbicort on outpatient basis. #6. Hypertension #7. Hyperlipidemia #8. Hypothyroidism #9. History of nicotine dependence, currently in remission, carries a 48-pack- year smoking history, smoking 2 years ago #10. 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 Diplopia, dizziness, and patient is scheduled to undergo ophthalmological evaluation as an outpatient Plan The patient is doing well. We'll discharge this patient home today if no other issues. Patient was seen. The patient was evaluated. The patient is stable for now. Resume all of the outpatient medications.
--- NOTE | 2018-10-02 23:19 | PN ---
PROGRESS NOTE DATE OF SERVICE: 10/02/2018. PRESENTING COMPLAINT: Left carotid endarterectomy. INTERVAL HISTORY: Patient is status post left carotid endarterectomy, doing much better this morning. Blood pressure has come up. Breathing well. Patient was taken off the oxygen and pulse oxing well. Did walk in the ICU. Did tolerate a diet. REVIEW OF SYSTEMS: Done for constitutional, cardiovascular, GI, pulmonary; relevant findings as above. CURRENT MEDICATIONS: Reviewed. PHYSICAL EXAMINATION: Temperature 98, pulse 59, respirations 21, blood pressure 112/98, pulse ox 97% on room air. GENERAL APPEARANCE: Sitting up comfortable eyes. EYES: Pupils equal. Conjunctivae normal. NECK: Dressing on the left side. Respiratory effort normal. LUNGS: Clear. CARDIOVASCULAR: 1st and 2nd sounds. No edema. ABDOMEN: Soft, nontender. Liver and spleen not palpable. PSYCHIATRY: Alert and oriented x3. Mood and affect normal. INVESTIGATIONS: White count 6.8, hemoglobin 11.8, potassium 4.6, BUN 28, creatinine 0.93. ASSESSMENT: 1. Left carotid endarterectomy with patch angioplasty. 2. Coronary artery disease. 3. Chronic obstructive pulmonary disease. 4. Hyperlipidemia. 5. Essential hypertension. 6. Hypothyroidism. 7. Narrowing in the proximal right internal carotid artery about 40%. 8. Morbid obesity BMI 41.0. PLAN: Patient is medically stable. Should hold off antihypertensive and Lasix and should follow with family doctor upon discharge. Dr. Garcia is coordinating discharge for the patient for Dr. Pearson. Care was discussed the patient. Questions were answered. Thank you, Dr. Pearson. MMODL / IJN: [id number] /
[2018-10-13] MEDS ORDERED: ERGOCALCIFEROL 50,000 UNIT CAP PO SCH (09:00)
== END 2018-10-02 13:41 | disposition home or self-care (01) | DRG 38 ==
LOC: 2ORMAIN 09:16 → 2SICU 15:18
PROVIDERS: ADMIT Surgery; ATTEND Surgery
PROC: 03UL0KZ Supplement Left Internal Carotid Artery with Nonautologous Tissue Substitute, Open Approach (ICD-10-PCS; 2018-09-30)
PROC: 03CL0ZZ Extirpation of Matter from Left Internal Carotid Artery, Open Approach (ICD-10-PCS; principal; 2018-09-30 11:15)
DX: I65.22 Occlusion and stenosis of left carotid artery (principal); Z68.41 Body mass index [BMI] 40.0-44.9, adult; E66.01 Morbid (severe) obesity due to excess calories; I95.9 Hypotension, unspecified; E78.5 Hyperlipidemia, unspecified; E03.9 Hypothyroidism, unspecified; I10 Essential (primary) hypertension; I25.10 Atherosclerotic heart disease of native coronary artery without angina pectoris; I70.8 Atherosclerosis of other arteries; J44.9 Chronic obstructive pulmonary disease, unspecified; M19.90 Unspecified osteoarthritis, unspecified site; K21.9 Gastro-esophageal reflux disease without esophagitis; I73.9 Peripheral vascular disease, unspecified; H53.2 Diplopia; R42 Dizziness and giddiness; Z79.01 Long term (current) use of anticoagulants; Z79.51 Long term (current) use of inhaled steroids; Z79.82 Long term (current) use of aspirin; Z79.890 Hormone replacement therapy; Z79.899 Other long term (current) drug therapy; Z86.73 Personal history of transient ischemic attack (TIA), and cerebral infarction without residual deficits; Z86.718 Personal history of other venous thrombosis and embolism; Z87.891 Personal history of nicotine dependence
CPT/HCPCS: 80048; 83735; 84100; 84484; 85025; 85027; 86850; 86900; 86901; 88304; 88305; 94640

== ENCOUNTER → 2019-01-01 | Outpatient (CLI) | payer MEDICARE ==
[2019-01-01 16:51] LABS: Basophils # (A) 0.1 k/uL (0-0.2); Basophils % (A) 1 %; Eosinophils # (A) 0.3 k/uL (0-0.7); Eosinophils % (A) 4 %; HCT 47.3 % (34.0-46.0); HGB 15.2 gm/dL (11.4-16.0); Lymphocytes # (A) 2.3 k/uL (1.0-4.8); Lymphocytes % (A) 34 %; MCH 29.2 pg (25.0-35.0); MCHC 32.1 g/dL (31.0-37.0); MCV 91.1 fL (80.0-100.0); Mean Platelet Volume 8.2; Monocytes # (A) 0.5 k/uL (0-1.0); Monocytes % (A) 8 %; Neutrophils # (A) 3.5 k/uL (1.3-7.7); Neutrophils % (A) 50 %; Platelet Count 196 k/uL (150-450); RDW 14.5 % (11.5-15.5); WBC 6.9 k/uL (3.8-10.6)
[2019-01-01 17:04] LABS: Potassium 4.6 mmol/L (3.5-5.1)
== END ==
LOC: LABPAT 15:52
PROVIDERS: ATTEND Surgery
DX: Z01.812 Encounter for preprocedural laboratory examination (principal); I77.1 Stricture of artery
CPT/HCPCS: 36415; 80051; 82565; 84520; 85025

== ENCOUNTER → 2019-01-06 | Day surgery (SDC) | payer MEDICARE ==
[2019-01-01 10:21] VITALS: BMI 36.1
[~2019-01-06] MED LIST changes: +ACETAMINOPHEN TAB 325 MG TAB PO PRN; +ASPIRIN 325 MG TAB PO STA; +ASPIRIN 81 MG ONE; +ASPIRIN 81 MG PO SCH; +CLOPIDOGREL 75 MG TAB PO ONE; +CLOPIDOGREL 75 MG TAB PO SCH; -DEXAMETHASONE SOD PHOSPHATE 10 MG/ML 1 ML VIAL IV ONE; +HEPARIN SODIUM 1,000 UN/ML (10ML VL) IV ONE; -HYDROmorphone 0.5 MG/0.5 ML SYRINGE IVP PRN; +IOPAMIDOL-250 100ML BTL INTRAARTER ONE; -LIDOCAINE 1% 20 ML VIAL (10MG/ML) FOR IV START INTRADERMA PRN; +LIDOCAINE 1% INJ 10MG/ML (20 ML MDV) SQ ONE; -MIDAZOLAM (PF) 2 MG/2 ML VIAL IV PRN; +MIDAZOLAM (PF) 2 MG/2 ML VIAL IVP ONE; -NITROGLYCERIN-D5W PMX 50 MG in DEXTROSE/WATER 1 250ML.BAG IV SCH; -ONDANSETRON 4 MG/2 ML VIAL IVP ONE; -PHENYLEPHRINE 40 MG in SODIUM CHLORIDE 0.9% 250 ML IV SCH; -SCOPOLAMINE 1.5MG/72HR PATCH TRANSDERM ONE; +SODIUM CHLORIDE 0.9% 1,000 ML IV ONE; +SODIUM CHLORIDE 0.9% 1,000 ML in EMPTY BAG 1 BAG IV ONE; -ceFAZolin IN SWFI 2 GM/20 ML SYRINGE IVP ONE; +hydrALAZINE HCL 20 MG/ML 1 ML VIAL IVP STA
[2019-01-06 07:06] VITALS: RESP 18; TEMP 98
[2019-01-06 07:16] LABS: Calcium 9.6 mg/dL (8.4-10.2); Potassium 4.4 mmol/L (3.5-5.1)
--- NOTE | 2019-01-06 09:25 | P.OP ---
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 Postoperative Diagnosis: Left subclavian artery 90% stenosis Procedure(s) Performed: Arch aortogram with percutaneous transluminal balloon angioplasty of the left subclavian artery and placement of balloon expandable stent and selective left subclavian and brachial artery angiogram Implants: 8x29mm Omnilink stent Anesthesia: local, other (Moderate sedation x 45 minutes) Surgeon: Garrett Pearson Estimated Blood Loss (ml): 5 Pathology: none sent Condition: stable Disposition: same day Indications for Procedure: 68-year-old female with history of subclavian artery stenosis and subclavian steal with left upper extremity pain presents to the [facility] today for lumen angioplasty and stenting. Operative Findings: 90% stenosis of the left subclavian artery just after the takeoff Description of Procedure: After written informed consent was obtained the patient all risks benefits and competitions were described the patient is brought to the [facility] laid in a supine position. The area of the groins were prepped and draped in usual sterile fashion. Under ultrasound guidance the common femoral artery on the r ight was visualized and shown to be patent without any significant calcification or stenosis. Utilizing Seldinger technique a 6-Slovak sheath was placed in the right common femoral artery under ultrasound guidance. 5000 units of heparin was then given. 035 Glidewire was then placed followed by pigtail catheter into the aortic arch and an aortic arch angiogram was performed. Once completed it w as noted to have significant stenosis at the takeoff of the subclavian artery with slow filling of the vertebral artery in a retrograde fashion. Carotids bilaterally at the takeoff were without significant stenosis. 035 Glidewire was then replaced and pigtail catheter was removed followed by a angled Berenstein catheter and the left subclavian artery was accessed and the 90% stenosis was crossed. Once it was crossed the Cavazos was placed within the subclavian artery and angiogram was obtained of the subclavian and brachial artery of the left upper extremity. 035 Glidewire advantage was then placed and a 6-Slovak rabies sheath was placed just at the ostium of the subclavian artery. Percutaneous transluminal balloon angioplasty was then performed with a 6 x 40 mm balloon angiogram was obtained demonstrating improvement of the stenosis. Artery was then measured to be approximately 7 mm and therefore an 8 x 29 mm balloon expandable Omnilink stent was then placed. Finally gram was then obtained after stenting with good resolution of the stenosis and good brisk flow throughout the subclavian artery to the vertebral and down the left arm. All guidewires and catheters were then removed. Sheath was removed followed by a 6- [place]ak Angio-Seal for hemostasis. Hemostasis was assured. The area was then cleansed and dressings were placed. Patient tolerated procedure well was sent to PACU for recovery. Plan - Discharge Summary Discharge Rx Participant: Yes New Discharge Prescriptions: No Action Rivaroxaban [Xarelto] 20 mg PO HS Budesonide-Formot 160-4.5 Mcg [Symbicort 160-4.5 Mcg Inhaler] 2 puff INHALATION RT-BID Albuterol Sulfate [Proair Hfa] 1 - 2 puff INHALATION RT-Q6H PRN PRN Reason: Shortness Of Breath Furosemide [Lasix] 40 mg PO DAILY Ergocalciferol [Vitamin D2 (DRISDOL)] 50,000 unit PO Q14D Tiotropium [place] [Spiriva] 1 cap INHALATION RT-DAILY Aspirin 81 mg PO DAILY #30 chewable Levothyroxine Sodium [Levo-T] 250 mcg PO DAILY #30 tablet Atorvastatin Calcium [Lipitor] 80 mg PO HS #30 tablet Famotidine [Pepcid] 20 mg PO BID #60 tablet Loratadine [Claritin] 10 mg PO DAILY Discharge Medication List Albuterol Sulfate [Proair Hfa] 1 - 2 puff INHALATION RT-Q6H PRN 11/13/15 [History] Budesonide-Formot 160-4.5 Mcg [Symbicort 160-4.5 Mcg Inhaler] 2 puff INHALATION RT-BID 11/13/15 [History] Ergocalciferol [Vitamin D2 (DRISDOL)] 50,000 unit PO Q14D 11/13/15 [History] Furosemide [Lasix] 40 mg PO DAILY 11/13/15 [History] Rivaroxaban [Xarelto] 20 mg PO HS 11/13/15 [History] Tiotropium [place] [Spiriva] 1 cap INHALATION RT-DAILY 11/13/15 [History] Aspirin 81 mg PO DAILY #30 chewable 09/22/18 [Rx] Atorvastatin Calcium [Lipitor] 80 mg PO HS #30 tablet 09/22/18 [Rx] Famotidine [Pepcid] 20 mg PO BID #60 tablet 09/22/18 [Rx] Levothyroxine Sodium [Levo-T] 250 mcg PO DAILY #30 tablet 09/22/18 [Rx] Loratadine [Claritin] 10 mg PO DAILY 01/01/19 [History]
--- NOTE | 2019-01-06 13:57 | IR ---
Fluoroscopy HISTORY: Peripheral vascular occlusive disease, subclavian stenosis 10.8 minutes fluoroscopy time supplied to the referring clinician. 360 intraoperative C-arm images d ocument the procedure. See dictated report from vascular surgery.
[2019-01-06 14:16] VITALS: PULSE 87
[2019-01-06 15:18] VITALS: BP 176/73
== END | disposition home or self-care (01) ==
LOC: CATHCVL 06:27
PROVIDERS: ATTEND Surgery
DX: I70.8 Atherosclerosis of other arteries (principal); G45.8 Other transient cerebral ischemic attacks and related syndromes; Z79.01 Long term (current) use of anticoagulants; Z79.82 Long term (current) use of aspirin; Z79.890 Hormone replacement therapy; Z79.51 Long term (current) use of inhaled steroids; Z79.899 Other long term (current) drug therapy
CPT/HCPCS: 37236; 80048; C1760; C1894 ×2; C1769 ×4; C1725; C1876; J0360; J2001; J1644; Q9966; J2250

== ENCOUNTER 2019-04-22 10:57 | Emergency (ER) | payer MEDICARE ==
[2019-04-22 11:08] VITALS: RESP 18
[2019-04-22] MEDS ORDERED: PROPARACAINE 0.5% OPHTH DROPS 15 ML BTL RIGHT EYE STA (11:16)
[2019-04-22] MEDS ORDERED: TOBRAMYCIN 0.3% OPHTH DROPS 5 ML BTL RIGHT EYE STA (12:30)
--- NOTE | 2019-04-22 12:31 | ED ---
Eye Problem HPI - General Chief complaint: Eye Problems Stated complaint: eye problem Time Seen by Provider: 04/22/19 11:19 Source: patient, RN notes reviewed, old records reviewed Mode of arrival: ambulatory - History of Present Illness Initial comments: This is a 68-year-old female the ER for evaluation he presents today for evaluation with regards to pain. Patient tolerated rate. No loss of vision she does have some blurriness of pain in her right eye. No other complaints, tetanus is up-to-date. No headache MD chief complaint: eye pain (Right eye) -: hour(s) Onset Description: sudden Location: right eye Place: home If Injury: direct trauma Eye Symptoms: burning, redness, pain Severity: moderate Severity scale (1-10): 3 If Pain, Quality: burning Consistency: constant Associated Symptoms: none Treatments Prior to Arrival: none - Related Data Home Medications Medication Instructions Recorded Confirmed Albuterol Sulfate [Proair Hfa] 1 - 2 puff INHALATION RT-Q6H PRN 11/13/15 04/22/19 Budesonide-Formot 160-4.5 Mcg 2 puff INHALATION RT-BID 11/13/15 04/22/19 [Symbicort 160-4.5 Mcg Inhaler] Ergocalciferol [Vitamin D2 50,000 unit PO Q14D 11/13/15 04/22/19 (DRISDOL)] Rivaroxaban [Xarelto] 20 mg PO HS 11/13/15 04/22/19 Tiotropium [place] [Spiriva] 1 cap INHALATION RT-DAILY 11/13/15 04/22/19 Loratadine [Claritin] 10 mg PO DAILY 01/01/19 04/22/19 Clopidogrel Bisulfate [Plavix] 75 mg PO DAILY 04/22/19 04/22/19 Levothyroxine Sodium [Synthroid] 175 mcg PO DAILY 04/22/19 04/22/19 Lisinopril [Zestril] 30 mg PO DAILY 04/22/19 04/22/19 Previous Rx's Medication Instructions Recorded Atorvastatin Calcium [Lipitor] 80 mg PO HS #30 tablet 09/22/18 Famotidine [Pepcid] 20 mg PO BID #60 tablet 09/22/18 Allergies Allergy/AdvReac Type Severity Reaction Status Date / Time ciprofloxacin Allergy Swelling-SEE Verified 04/22/19 12:01 COMMENT tobramycin Allergy Swelling Verified 04/22/19 12:01 Review of Systems ROS Statement: Those systems with pertinent positive or pertinent negative responses have been documented in the HPI. ROS Other: All systems not noted in ROS Statement are negative. Past Medical History Past Medical History: Coronary Artery Disease (CAD), COPD, Deep Vein Thrombosis (DVT), Hyperlipidemia, Hypertension, Sleep Apnea/CPAP/BIPAP, Thyroid Disorder Additional Past Medical History / Comment(s): Hx left leg dvt, no CPAP use. 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 Right arm surgery. Past Anesthesia/Blood Transfusion Reactions: Motion Sickness Past Psychological History: No Psychological Hx Reported Smoking Status: Former smoker Past Alcohol Use History: Rare Past Drug Use History: None Reported - Past Family History Father Family Medical History: No Reported History Additional Family Medical History / Comment(s): Father of suicide. Mother Additional Family Medical History / Comment(s): Mother with high sugar "insulin stroke" emergency without prior known history. HX POLYPS General Exam - General Exam Comments Initial Comments: Foreseen was up exam to show corneal abrasion right eye General appearance: alert, in no apparent distress Head exam: Present: atraumatic, normocephalic, normal inspection Eye exam: Present: normal appearance, PERRL, EOMI. Absent: scleral icterus, conjunctival injection, periorbital swelling ENT exam: Present: normal exam, mucous membranes moist Neck exam: Present: normal inspection. Absent: tenderness, meningismus, lymphadenopathy Respiratory exam: Present: normal lung sounds bilaterally. Absent: respiratory distress, wheezes, rales, rhonchi, stridor Cardiovascular Exam: Present: regular rate, normal rhythm, normal heart sounds. Absent: systolic murmur, diastolic murmur, rubs, gallop, clicks GI/Abdominal exam: Present: soft, normal bowel sounds. Absent: distended, tenderness, guarding, rebound, rigid Extremities exam: Present: normal inspection, full ROM, normal capillary refill. Absent: tenderness, pedal edema, joint swelling, calf tenderness Back exam: Present: normal inspection Neurological exam: Present: alert, oriented X3, CN II-XII intact Psychiatric exam: Present: normal affect, normal mood Skin exam: Present: warm, dry, intact, normal color. Absent: rash Course Vital Signs 04/22/19 04/22/19 11:06 12:41 Temperature 97.7 F 98.1 F Pulse Rate 96 78 Respiratory 18 18 Rate Blood Pressure 116/74 132/81 O2 Sat by Pulse 97 99 Oximetry Medical Decision Making - Medical Decision Making 68 female the ER for evaluation of right eye corneal abrasion, patient given antibiotic drops in the ER and can be discharged Disposition Clinical Impression: Corneal abrasion, left Disposition: HOME SELF-CARE Condition: Good Instructions (If sedation given, give patient instructions): Corneal Abrasion (ED) Is patient prescribed a controlled substance at d/c from ED?: No Referrals: Yuriy Toscano DO [Primary Care Provider] - 1-2 days
[2019-04-22 12:42] VITALS: BP 132/81; PULSE 78; TEMP 98.1
[2019-04-22] MEDS ORDERED: POLYMYXIN B-TRIMETHOPRIM SULF (10,000-1) OPHTH DROPS 10 ML BTL RIGHT EYE STA (12:51)
== END 2019-04-22 13:13 | disposition home or self-care (01) ==
LOC: EC 10:57
DX: S05.01XA Injury of conjunctiva and corneal abrasion without foreign body, right eye, initial encounter (principal); I25.10 Atherosclerotic heart disease of native coronary artery without angina pectoris; J44.9 Chronic obstructive pulmonary disease, unspecified; I10 Essential (primary) hypertension; E07.9 Disorder of thyroid, unspecified; G47.30 Sleep apnea, unspecified; Z79.02 Long term (current) use of antithrombotics/antiplatelets; Z79.01 Long term (current) use of anticoagulants; Z79.51 Long term (current) use of inhaled steroids; Z79.890 Hormone replacement therapy; Z79.899 Other long term (current) drug therapy; Z88.1 Allergy status to other antibiotic agents; Z87.891 Personal history of nicotine dependence; Z86.718 Personal history of other venous thrombosis and embolism; W22.8XXA Striking against or struck by other objects, initial encounter
CPT/HCPCS: 99283

== ENCOUNTER 2019-07-12 11:00 | Observation (INO) | payer MEDICARE ==
[2019-07-12] MEDS ORDERED: AMPICILLIN-SULBACTAM 3 GM in SODIUM CHLORIDE 0.9% 100 ML IVPB STA (11:44)
--- NOTE | 2019-07-12 11:48 | ED ---
General Adult HPI <Phan Edwards - Last Filed: 07/12/19 12:35> - General Source: patient, RN notes reviewed Mode of arrival: ambulatory Limitations: no limitations <Caesar Garcia - Last Filed: 07/12/19 12:48> - General Chief complaint: Animal Bite Stated complaint: cat bite Time Seen by Provider: 07/12/19 11:27 - History of Present Illness Initial comments: 69-year-old female with a past medical history of CAD, COPD, hyperlipidemia, hypertension, DVT presents to the emergency department for a chief complaint of cat bite. Patient was bit in the left second digit by her own cat 2 days ago. States that she washed this out thoroughly at that time. However it has started to become more red and swollen since that time. Patient states she can move her finger but it does feel swollen when she does so. Denies fevers or chills. Patient states she is up-to-date on tetanus within the past 5 years. States cat is up-to-date on rabies immunizations. Patient denies fevers or chills.Patient has no other complaints at this time including shortness of breath, chest pain, abdominal pain, nausea or vomiting, headache, or visual changes. (Caesar Garcia) - Related Data Home Medications Medication Instructions Recorded Confirmed Budesonide-Formot 160-4.5 Mcg 2 puff INHALATION RT-BID 11/13/15 07/12/19 [Symbicort 160-4.5 Mcg Inhaler] Ergocalciferol [Vitamin D2 50,000 unit PO SA 11/13/15 07/12/19 (DRISDOL)] Rivaroxaban [Xarelto] 20 mg PO HS 11/13/15 07/12/19 Tiotropium [place] [Spiriva] 1 cap INHALATION RT-HS 11/13/15 07/12/19 Loratadine [Claritin] 10 mg PO DAILY 01/01/19 07/12/19 Clopidogrel Bisulfate [Plavix] 75 mg PO DAILY 04/22/19 07/12/19 Levothyroxine Sodium [Synthroid] 175 mcg PO DAILY 04/22/19 07/12/19 Lisinopril [Zestril] 30 mg PO DAILY 04/22/19 07/12/19 Albuterol Sulfate [Ventolin HFA] 1 - 2 puff INHALATION RT-Q6H PRN 07/12/19 07/12/19 Furosemide [Lasix] 20 mg PO DAILY 07/12/19 07/12/19 Previous Rx's Medication Instructions Recorded Atorvastatin Calcium [Lipitor] 80 mg PO HS #30 tablet 09/22/18 Famotidine [Pepcid] 20 mg PO BID #60 tablet 09/22/18 Allergies Allergy/AdvReac Type Severity Reaction Status Date / Time ciprofloxacin Allergy Swelling-SEE Verified 07/12/19 11:35 COMMENT tobramycin Allergy Swelling Verified 07/12/19 11:35 Review of Systems ROS Other: All systems not noted in ROS Statement are negative. <Phan Edwards - Last Filed: 07/12/19 12:35> ROS Other: All systems not noted in ROS Statement are negative. <Caesar Garcia - Last Filed: 07/12/19 12:48> ROS Statement: Those systems with pertinent positive or pertinent negative responses have been documented in the HPI. Past Medical History Past Medical History: Coronary Artery Disease (CAD), COPD, Deep Vein Thrombosis (DVT), Hyperlipidemia, Hypertension, Sleep Apnea/CPAP/BIPAP, Thyroid Disorder Additional Past Medical History / Comment(s): Hx left leg dvt, no CPAP use. 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 Right arm surgery. Past Anesthesia/Blood Transfusion Reactions: Motion Sickness Past Psychological History: No Psychological Hx Reported Smoking Status: Former smoker Past Alcohol Use History: Rare Past Drug Use History: None Reported - Past Family History Father Family Medical History: No Reported History Additional Family Medical History / Comment(s): Father of suicide. Mother Additional Family Medical History / Comment(s): Mother with high sugar "insulin stroke" emergency without prior known history. HX POLYPS <Caesar Garcia - Last Filed: 07/12/19 12:48> General Exam Limitations: no limitations General appearance: alert, in no apparent distress Head exam: Present: atraumatic, normocephalic, normal inspection Eye exam: Present: normal appearance, PERRL, EOMI. Absent: scleral icterus, conjunctival injection, periorbital swelling ENT exam: Present: normal exam, mucous membranes moist Neck exam: Present: normal inspection, full ROM. Absent: tenderness, meningismus, lymphadenopathy Respiratory exam: Present: normal lung sounds bilaterally. Absent: respiratory distress, wheezes, rales, rhonchi, stridor Cardiovascular Exam: Present: regular rate, normal rhythm, normal heart sounds. Absent: systolic murmur, diastolic murmur, rubs, gallop, clicks Extremities exam: Present: normal capillary refill (Capillary refill less than 2 seconds in all digits. Radial pulse 2+ in the left upper extremity.), joint swelling (There is some mild edema and erythema noted of the proximal phalanx of the left second digit as well as the distal aspect of the left dorsum hand. Cat bite is noted to the dorsal proximal phalanx of the left second digit. This is well approximated. There is lymphangitic streaking up to the proximal forearm). Absent: full ROM (Patient has some limited range of motion due to pain in the left MCP and PIP joints however flexor and extensor mechanisms are intact.) <Caesar Garcia - Last Filed: 07/12/19 12:48> Course Vital Signs 07/12/19 07/12/19 11:22 12:02 Temperature 98.8 F Pulse Rate 59 L Respiratory 18 Rate Blood Pressure 131/65 O2 Sat by Pulse 97 Oximetry Medical Decision Making <Phan Edwards - Last Filed: 07/12/19 12:35> - Lab Data Result diagrams: 07/12/19 12:00 07/12/19 12:00 <Caesar Garcia - Last Filed: 07/12/19 12:48> - Medical Decision Making Case was discussed with practitioner Caesar. Chart and results reviewed. Case also discussed with Dr. velasquez, who will admit covering for Dr. Leos, who admits for Dr. Toscano. (Phan Edwards) HPI and physical exam as documented. There is evidence for lymphangitic streaking. XR of the left hand shows no acute osseous lesion or foreign body. Tetanus is updated. Rabies immunizations are up-to-date. Given lymphangitic streaking and localized infection of the hand secondary to Bite patient will be admitted for IV antibiotics. (Caesar Garcia) - Lab Data Lab Results 10/27/19 10/27/19 10/27/19 Range/Units 12:00 12:00 12:00 WBC 8.1 (3.8-10.6) k/uL RBC 5.02 (3.80-5.40) m/uL Hgb 15.2 (11.4-16.0) gm/dL Hct 46.0 (34.0-46.0) % MCV 91.7 (80.0-100.0) fL MCH 30.3 (25.0-35.0) pg MCHC 33.0 (31.0-37.0) g/dL RDW 13.4 (11.5-15.5) % Plt Count 172 (150-450) k/uL Neutrophils % 64 % Lymphocytes % 25 % Monocytes % 5 % Eosinophils % 3 % Basophils % 2 % Neutrophils # 5.1 (1.3-7.7) k/uL Lymphocytes # 2.0 (1.0-4.8) k/uL Monocytes # 0.4 (0-1.0) k/uL Eosinophils # 0.2 (0-0.7) k/uL Basophils # 0.1 (0-0.2) k/uL Sodium 140 (137-145) mmol/L Potassium 4.0 (3.5-5.1) mmol/L Chloride 106 (98-107) mmol/L Carbon Dioxide 24 (22-30) mmol/L Anion Gap 10 mmol/L BUN 15 (7-17) mg/dL Creatinine 1.10 H (0.52-1.04) mg/dL Est GFR (CKD-EPI)AfAm 60 (>60 ml/min/1.73 sqM) Est GFR (CKD-EPI)NonAf 52 (>60 ml/min/1.73 sqM) Glucose 91 (74-99) mg/dL Plasma Lactic Acid Paul 1.7 (0.7-2.0) mmol/L Calcium 9.8 (8.4-10.2) mg/dL Total Bilirubin 1.0 (0.2-1.3) mg/dL AST 27 (14-36) U/L ALT 20 (9-52) U/L Alkaline Phosphatase 128 H (38-126) U/L Total Protein 7.9 (6.3-8.2) g/dL Albumin 4.5 (3.5-5.0) g/dL Disposition <Phan Edwards - Last Filed: 07/12/19 12:35> Is patient prescribed a controlled substance at d/c from ED?: No Time of Disposition: 12:48 <Caesar Garcia - Last Filed: 07/12/19 12:48> Clinical Impression: Cat bite, Cellulitis, Lymphangitis Disposition: ADMITTED IP TO THIS HOSP Condition: Fair Instructions (If sedation given, give patient instructions): Animal Bite (ED) Referrals: Yuriy Toscano DO [Primary Care Provider] - 1-2 days
--- NOTE | 2019-07-12 12:21 | XR ---
EXAMINATION TYPE: XR hand complete LT , 3 VIEWS DATE OF EXAM ORDERED: 07/12/2019 HISTORY: cat bite left 2nd digit proximal phalanx. COMPARISON: None. FINDINGS: The study is poorly exposed. No fracture, dislocation or radiopaque foreign body is seen. IMPRESSION: 1. SUBOPTIMAL EXAMINATION. 2. NO ACUTE OSSEOUS LESION OR FOREIGN BODY.
[2019-07-12 12:36] LABS: Basophils # (A) 0.1 k/uL (0-0.2); Basophils % (A) 2 %; Eosinophils # (A) 0.2 k/uL (0-0.7); Eosinophils % (A) 3 %; HGB 15.2 gm/dL (11.4-16.0); Lymphocytes % (A) 25 %; MCH 30.3 pg (25.0-35.0); MCV 91.7 fL (80.0-100.0); Mean Platelet Volume 8.1; Monocytes # (A) 0.4 k/uL (0-1.0); Monocytes % (A) 5 %; Neutrophils # (A) 5.1 k/uL (1.3-7.7); Neutrophils % (A) 64 %; Platelet Count 172 k/uL (150-450); RBC 5.02 m/uL (3.80-5.40); RDW 13.4 % (11.5-15.5); WBC 8.1 k/uL (3.8-10.6)
--- NOTE | 2019-07-12 12:42 | P.HPIM ---
History of Present Illness This is a pleasant 69 years old female with past medical history of coronary artery disease, COPD, DVT, hyperlipidemia, hypertension, sleep apnea on CPAP, hypothyroidism. She presents because she got bit by her cat about 2 days ago, followed by pain and swelling and tenderness around the third and fourth metatarsal tarsal left joints with proximal spreading of the infection up to the distal forearm, more in line near fashion. Associated with limitation of flexion and extension of the left hand. No epicondyles or axillary ly mphadenopathy. No fever. No other symptoms. She denies chest pain or dyspnea. No change in urine or bowel habits Vitas looks stable, patient is afebrile. No labs has been ordered yet, but going to do CBC, BMP and liver enzymes as well as PT/INR. Blood culture is ordered. Patient is already started on Unasyn and IV fluids Review of Systems CONSTITUTIONAL: No fever, no malaise, no fatigue. HEENT: No recent visual problems or hearing problems. Denied any sore throat. CARDIOVASCULAR: No orthopnea, PND, no palpitations, no syncope. PULMONARY: No shortness of breath, no cough, no hemoptysis. GASTROINTESTINAL: No diarrhea, no nausea, no vomiting, no abdominal pain. Normoactive bowel sounds. NEUROLOGICAL: No headaches, no weakness, no numbness. HEMATOLOGICAL: Denies any bleeding or petechiae. GENITOURINARY: Denies any burning micturition, frequency, or urgency. MUSCULOSKELETAL/RHEUMATOLOGICAL: Denies any joint pain, swelling, or any muscle pain. ENDOCRINE: Denies any polyuria or polydipsia. Past Medical History Past Medical History: Coronary Artery Disease (CAD), COPD, Deep Vein Thrombosis (DVT), Hyperlipidemia, Hypertension, Sleep Apnea/CPAP/BIPAP, Thyroid Disorder Additional Past Medical History / Comment(s): Hx left leg dvt, no CPAP use. 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 Right arm surgery. Past Anesthesia/Blood Transfusion Reactions: Motion Sickness Past Psychological History: No Psychological Hx Reported Smoking Status: Former smoker Past Alcohol Use History: Rare Past Drug Use History: None Reported - Past Family History Father Family Medical History: No Reported History Additional Family Medical History / Comment(s): Father of suicide. Mother Additional Family Medical History / Comment(s): Mother with high sugar "insulin stroke" emergency without prior known history. HX POLYPS Medications and Allergies Home Medications Medication Instructions Recorded Confirmed Type Budesonide-Formot 160-4.5 Mcg 2 puff INHALATION RT-BID 11/13/15 07/12/19 History [Symbicort 160-4.5 Mcg Inhaler] Ergocalciferol [Vitamin D2 50,000 unit PO SA 11/13/15 07/12/19 History (DRISDOL)] Rivaroxaban [Xarelto] 20 mg PO HS 11/13/15 07/12/19 History Tiotropium [place] [Spiriva] 1 cap INHALATION RT-HS 11/13/15 07/12/19 History Atorvastatin Calcium [Lipitor] 80 mg PO HS #30 tablet 09/22/18 07/12/19 Rx Famotidine [Pepcid] 20 mg PO BID #60 tablet 09/22/18 07/12/19 Rx Loratadine [Claritin] 10 mg PO DAILY 01/01/19 07/12/19 History Clopidogrel Bisulfate [Plavix] 75 mg PO DAILY 04/22/19 07/12/19 History Levothyroxine Sodium [Synthroid] 175 mcg PO DAILY 04/22/19 07/12/19 History Lisinopril [Zestril] 30 mg PO DAILY 04/22/19 07/12/19 History Albuterol Sulfate [Ventolin HFA] 1 - 2 puff INHALATION RT-Q6H PRN 07/12/19 07/12/19 History Furosemide [Lasix] 20 mg PO DAILY 07/12/19 07/12/19 History Allergies Allergy/AdvReac Type Severity Reaction Status Date / Time ciprofloxacin Allergy Swelling-SEE Verified 07/12/19 11:35 COMMENT tobramycin Allergy Swelling Verified 07/12/19 11:35 Physical Exam Vitals: Vital Signs Temp Pulse Resp BP Pulse Ox 07/12/19 12:02 98.8 F 07/12/19 11:22 59 L 18 131/65 97 Intake and Output 07/11/19 07/12/19 07/12/19 22:59 06:59 14:59 Other: Weight 111.13 kg GENERAL: The patient is alert and oriented x3, not in any acute distress. Well developed, well nourished. HEENT: Pupils are round and equally reacting to light. EOMI. No scleral icterus. No conjunctival pallor. Normocephalic, atraumatic. No pharyngeal erythema. No thyromegaly. CARDIOVASCULAR: S1 and S2 present. No murmurs, rubs, or gallops. PULMONARY: Chest is clear to auscultation, no wheezing or crackles. ABDOMEN: Soft, nontender, nondistended, normoactive bowel sounds. No palpable organomegaly. MUSCULOSKELETAL: No joint swelling or deformity. -EXTREMITIES: No cyanosis, clubbing, or pedal edema. Left hand swelling, tenderness and redness at the metatarsal tarsal joint of the third and fourth fingers and extending approximately in the palm of the left hand up to the distal forearm NEUROLOGICAL: Gross neurological examination did not reveal any focal deficits. SKIN: No rashes. No petechiae Results CBC & Chem 7: 07/12/19 12:00 Assessment and Plan Assessment: CAT bite Hypertension Hyperlipidemia Sleep apnea on CPAP Hypothyroidism Chronic left leg DVT History of coronary artery disease Plan: This is a pleasant 69 years old female who presents with Bite. Continue with antibiotics. Consult infectious disease. Consult orthopedic for surgical evaluation. Labs and medication were reviewed.. Continue same treatment. Continue with symptomatic treatment. Resume home medication. Monitor lytes and vitals. Continue with xarelto and blood pressure medication. DVT and GI prophylaxis. Further recommendations of the clinical course of the patient DVT prophylaxis: xarelto GI Prophylaxis: Pepcid OT: Pending Prognosis is guarded
[2019-07-12] MEDS: SODIUM CHLORIDE 0.9% 500 ML 500 ML IV SCH (12:45)
[2019-07-12 12:46] LABS: Albumin 4.5 g/dL (3.5-5.0); Calcium 9.8 mg/dL (8.4-10.2); Total Protein 7.9 g/dL (6.3-8.2)
[2019-07-12] MEDS ORDERED: NALOXONE 0.4 MG/ML 1 ML VIAL IV PRN (12:49)
[2019-07-12] MEDS ORDERED: HYDROcodone/APAP 5-325MG 1 EACH TAB PO PRN (12:49)
[2019-07-12 14:30] VITALS: BMI 36.7
--- NOTE | 2019-07-12 15:40 | P.CNOR ---
History of Present Illness - HPI Consult date: 07/12/19 History of present illness: The patient is a right-hand dominant 69-year-old female with multiple medical problems including type 2 diabetes and coronary artery disease who was admitted to internal medicine with a left hand infection. According to the patient this last Saturday evening she was bit by one of her cats over the dorsum of her left index finger. It became increasingly swollen and red to the point that she presented to the emergency department earlier this afternoon. She was found to have cellulitis and ascending lymphangitis per the ER and admitting team's note. At the time of my evaluation the patient is complaining of isolated left hand and wrist pain. She has mild fevers but denies feeling systemically sick. She has no other complaints Past Medical History Past Medical History: Coronary Artery Disease (CAD), COPD, Deep Vein Thrombosis (DVT), Hyperlipidemia, Hypertension, Sleep Apnea/CPAP/BIPAP, Thyroid Disorder Additional Past Medical History / Comment(s): Hx left leg dvt, no CPAP use. History of Any Multi-Drug Resistant Organisms: None Reported Past Surgical History: Appendectomy, Orthopedic Surgery, Tonsillectomy Additional Past Surgical History / Comment(s): Jaw surgery secondary to trauma, artificial bone and metal remains in jaw. Right arm surgery to repair fracture. Past Anesthesia/Blood Transfusion Reactions: Motion Sickness Past Psychological History: No Psychological Hx Reported Smoking Status: Former smoker Past Alcohol Use History: Rare Additional Past Alcohol Use History / Comment(s): Quit smoking 2 yrs ago, smoked 1PPD for 48 yrs. Past Drug Use History: None Reported - Past Family History Father Family Medical History: No Reported History Additional Family Medical History / Comment(s): Father of suicide. Mother Additional Family Medical History / Comment(s): Mother with high sugar "insulin stroke" emergency without prior known history. HX POLYPS Medications and Allergies Home Medications Medication Instructions Recorded Confirmed Type Budesonide-Formot 160-4.5 Mcg 2 puff INHALATION RT-BID 11/13/15 07/12/19 History [Symbicort 160-4.5 Mcg Inhaler] Ergocalciferol [Vitamin D2 50,000 unit PO SA 11/13/15 07/12/19 History (DRISDOL)] Rivaroxaban [Xarelto] 20 mg PO HS 11/13/15 07/12/19 History Tiotropium [place] [Spiriva] 1 cap INHALATION RT-HS 11/13/15 07/12/19 History Atorvastatin Calcium [Lipitor] 80 mg PO HS #30 tablet 09/22/18 07/12/19 Rx Famotidine [Pepcid] 20 mg PO BID #60 tablet 09/22/18 07/12/19 Rx Loratadine [Claritin] 10 mg PO DAILY 01/01/19 07/12/19 History Clopidogrel Bisulfate [Plavix] 75 mg PO DAILY 04/22/19 07/12/19 History Levothyroxine Sodium [Synthroid] 175 mcg PO DAILY 04/22/19 07/12/19 History Lisinopril [Zestril] 30 mg PO DAILY 04/22/19 07/12/19 History Albuterol Sulfate [Ventolin HFA] 1 - 2 puff INHALATION RT-Q6H PRN 07/12/19 07/12/19 History Furosemide [Lasix] 20 mg PO DAILY 07/12/19 07/12/19 History Allergies Allergy/AdvReac Type Severity Reaction Status Date / Time ciprofloxacin Allergy Swelling-SEE Verified 07/12/19 14:09 COMMENT tobramycin Allergy Swelling Verified 07/12/19 14:09 Physical Examination The patient is in no apparent distress and is alert and easily able to answer questions. A focused examination of the left hand was conducted. On inspection there is a puncture wound over the dorsal radial index finger over the proximal phalanx. There is gross purulent drainage. The dorsum of the left index and middle finger or erythematous and there is boggy swelling over the second and third MP joints. There is palpable fluctuance over the dorsum of the index finger. There is no pain along the flexor tendon sheath. There is no tenderness or fluctuance in the forearm. Sensation is intact to light touch in the index and middle finger. Results X-rays of the left hand show no acute fractures or foreign bodies. - Labs Labs: Abnormal Lab Results - Last 24 Hours (Table) 07/12/19 07/12/19 Range/Units 12:00 12:00 Creatinine 1.10 H (0.52-1.04) mg/dL Alkaline Phosphatase 128 H (38-126) U/L C-Reactive Protein 24.1 H (<10.0) mg/L H & H 07/12/19 Range/Units 12:00 Hgb 15.2 (11.4-16.0) gm/dL Hct 46.0 (34.0-46.0) % Result Diagrams: 07/12/19 12:00 07/12/19 12:00 Assessment and Plan (1) Cat bite Current Visit: Yes Status: Acute Code(s): W55.01XA - BITTEN BY CAT, INITIAL ENCOUNTER SNOMED Code(s): 735303252 (2) Cellulitis Current Visit: Yes Status: Acute Code(s): L03.90 - CELLULITIS, UNSPECIFIED SNOMED Code(s): 917683003 Plan: The patient is admitted with cellulitis and abscess following a cat bite to the left hand. At the time of my evaluation I was able to express ashleigh pus from t he index finger wound. Due to the patient's multiple medical comorbidities including diabetes, coronary artery disease, and COPD and due to her presentation of having a cat bite with purulent material expressed from the index finger by recommendation was to take her to the operating room this after noon for incision and drainage. We also discussed a trial of antibiotics and local wound care, but due to the patient's medical comorbidities I think it is in her best interest to drain the purulent infection. Cultures were taken on the floor but deep cultures will be taken in the operating room. We briefly discussed potential for complications including spread of infection need for further surgery and possibly amputation. The patient voiced understanding of this and understands her increased risk of having a complication due to her multiple medical problems. She will remain nothing by mouth and we will plan for surgery this afternoon. Time with Patient: Greater than 30
[2019-07-12] MEDS: SODIUM CHLORIDE 0.9% 1,000 ML IV SCH ×2 (16:01→19:29)
--- NOTE | 2019-07-12 16:09 | P.CONS ---
History of Present Illness - Reason for Consult Consult date: 07/12/19 Left hand cat bite cellulitis and abscess Requesting physician: Jere E Sheet - Chief Complaint Left hand pain swelling and redness 1 day - History of Present Illness Patient is a 69 year female who has been bitten by her pet cat on Saturday evening and that is 2 days prior to presentation hospital the patient says she did have a bleeding from the site she did bleed and then wash it with hydrogen peroxide she noticed some redness developing yesterday however when she woke up this morning she has more swelling and redness of the left hand dorsum especially at the base of the index finger the patient had did have pressure like sensation and dull aching pain about 2 out of 10 and no radiation with worsening swelling and redness she presented to the hospital the patient denies high-grade fever rigors or chills, on arrival to the ER the patient has been af ebrile and white count has been normal sed rate was 15 patient had did have x- rays of the left hand 39 shows any bony changes patient has been diagnosed with left hand cat bite cellulitis with possible abscess patient was started on Unasyn 3 g every 8 hours infectious disease was consulted for further recommendation regarding antibiotic therapy subsequently has been evaluated by orthopedics with the drainage of some purulent material from her left hand which has been sent for the culture with a plan for more debridement this afternoon Review of Systems Positive point has been mentioned in the HPI rest of the systems are negative Past Medical History Past Medical History: Coronary Artery Disease (CAD), COPD, Deep Vein Thrombosis (DVT), Hyperlipidemia, Hypertension, Sleep Apnea/CPAP/BIPAP, Thyroid Disorder Additional Past Medical History / Comment(s): Hx left leg dvt, no CPAP use. 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 Right arm surgery. Past Anesthesia/Blood Transfusion Reactions: Motion Sickness Past Psychological History: No Psychological Hx Reported Smoking Status: Former smoker Past Alcohol Use History: Rare Past Drug Use History: None Reported - Past Family History Father Family Medical History: No Reported History Additional Family Medical History / Comment(s): Father of suicide. Mother Additional Family Medical History / Comment(s): Mother with high sugar "insulin stroke" emergency without prior known history. HX POLYPS Medications and Allergies Home Medications Medication Instructions Recorded Confirmed Type Budesonide-Formot 160-4.5 Mcg 2 puff INHALATION RT-BID 11/13/15 07/12/19 History [Symbicort 160-4.5 Mcg Inhaler] Ergocalciferol [Vitamin D2 50,000 unit PO SA 11/13/15 07/12/19 History (DRISDOL)] Rivaroxaban [Xarelto] 20 mg PO HS 11/13/15 07/12/19 History Tiotropium [place] [Spiriva] 1 cap INHALATION RT-HS 11/13/15 07/12/19 History Atorvastatin Calcium [Lipitor] 80 mg PO HS #30 tablet 09/22/18 07/12/19 Rx Famotidine [Pepcid] 20 mg PO BID #60 tablet 09/22/18 07/12/19 Rx Loratadine [Claritin] 10 mg PO DAILY 01/01/19 07/12/19 History Clopidogrel Bisulfate [Plavix] 75 mg PO DAILY 04/22/19 07/12/19 History Levothyroxine Sodium [Synthroid] 175 mcg PO DAILY 04/22/19 07/12/19 History Lisinopril [Zestril] 30 mg PO DAILY 04/22/19 07/12/19 History Albuterol Sulfate [Ventolin HFA] 1 - 2 puff INHALATION RT-Q6H PRN 07/12/19 07/12/19 History Furosemide [Lasix] 20 mg PO DAILY 07/12/19 07/12/19 History Allergies Allergy/AdvReac Type Severity Reaction Status Date / Time ciprofloxacin Allergy Swelling-SEE Verified 07/12/19 14:09 COMMENT tobramycin Allergy Swelling Verified 07/12/19 14:09 Physical Exam Vitals: Vital Signs Temp Pulse Resp BP Pulse Ox 07/12/19 12:51 54 L 18 123/95 99 07/12/19 12:02 98.8 F 07/12/19 11:22 59 L 18 131/65 97 Intake and Output 07/11/19 07/12/19 07/12/19 22:59 06:59 14:59 Other: Weight 111.13 kg GENERAL DESCRIPTION: Elderly female lying in bed, no distress. No tachypnea or accessory muscle of respiration use. HEENT: Shows Pallor , no scleral icterus. Oral mucous membrane is dry. No pharyngeal erythema or thrush NECK: Trachea central, no thyromegaly. LUNGS: Unlabored breathing. Clear to auscultation anteriorly. No wheeze or crackle. HEART: S1, S2, regular rate and rhythm. No loud murmur ABDOMEN: Soft, no tenderness , guarding or rigidity, no organomegaly EXTREMITIES: Left hand dorsum did have swelling redness most marked at the base of the index finger which is warm to touch SKIN: No rash, no masses palpable. NEUROLOGICAL: The patient is awake, alert, oriented x3, mood and affect normal. Results CBC & Chem 7: 07/12/19 12:00 07/12/19 12:00 Labs: Abnormal Lab Results - Last 24 Hours (Table) 07/12/19 Range/Units 12:00 Creatinine 1.10 H (0.52-1.04) mg/dL Alkaline Phosphatase 128 H (38-126) U/L Assessment and Plan Assessment: 1-patient with left hand cat bite cellulitis with an abscess will need to cover for the oral geovanna of the cat which is usually a mix of gram-negative aerobes and anaerobes and less likely gram-positive infection 2-Patient with multiple antibiotic ALLERGIES that would limit the number of antibiotic safe to use (1) Cat bite Current Visit: Yes Status: Acute Code(s): W55.01XA - BITTEN BY CAT, INITIAL ENCOUNTER SNOMED Code(s): 377216722 (2) Cellulitis Current Visit: Yes Status: Acute Code(s): L03.90 - CELLULITIS, UNSPECIFIED SNOMED Code(s): 579156410 Plan: 1-Unasyn 3 g every 6 hours 2-aerobic and anaerobic cultures at the time of surgical drainage We will follow on clinical condition and cultures to further adjust medication if needed Thank you for this consultation will follow this patient with you Time with Patient: Greater than 30
[2019-07-12] MEDS ORDERED: SUCCINYLCHOLINE CHLORIDE 100 MG/5 ML SYR IV ONE (16:13)
[2019-07-12] MEDS ORDERED: MIDAZOLAM 2 MG/2 ML VIAL ONE (16:13)
[2019-07-12] MEDS ORDERED: PROPOFOL 10 MG/ML 20 ML VIAL IV ONE (16:13)
[2019-07-12] MEDS: AMPICILLIN-SULBACTAM 3 GM in SODIUM CHLORIDE 0.9% 100 ML IVPB SCH (16:17)
[2019-07-12] MEDS ORDERED: IV FLUID CONTINUATION 1,000 ML IV ONE (16:19)
[2019-07-12] MEDS ORDERED: ceFAZolin 3,000 MG in SODIUM CHLORIDE 0.9% IRRIGATIO 3,000 ML IRRIGATION ONE (16:40)
--- NOTE | 2019-07-12 17:04 | P.OP ---
Date of Procedure: 07/12/19 Preoperative Diagnosis: 1. Left index finger abscess and surrounding cellulitis 2. COPD 3. Coronary artery disease Postoperative Diagnosis: Left index finger cellulitis with deep abscess not violating the tendon sheath Procedure(s) Performed: Incision and drainage of left index finger Anesthesia: ANDRES Surgeon: Edenilson Go Estimated Blood Loss (ml): 10 IV fluids (ml): 500 Pathology: other (Deep cultures) Condition: stable Disposition: PACU Indications for Procedure: The patient is a 69 old female with multiple medical problems who sustained a Bite to her left index finger this past Saturday. She developed progressively worsening pain and swelling. She presented to the emergency room today and was admitted under the care of internal medicine. I met with the patient this afternoon was able to express pus from the index finger. Due to the patient's multiple medical problems, gross purulence from the wound, and inoculation with sharp cat teeth I recommended exploration of the wound in the operating room followed by an incision and drainage. We discussed the potential risks and complications of surgery at length. The patient understands these and also knowledge is that she is at a higher risk of having a competition due to her medical issues. She provided her verbal and written consent to go forward with surgery. Operative Findings: There is a puncture wound over the dorsal aspect of the left index finger proximal phalanx. There is purulence that extended down to but did not violate the extensor tendon sheath. There was no exposed tendon, bone, or joint space. Description of Procedure: The patient is a verified in preoperative holding and the correct left hand was marked with my initials. I reviewed the consent form with the patient and her brother. All their questions were answered. The patient was then brought back to the operating room by anesthesia. She was positioned on her gurney and a anesthetic was provided. Preoperative antibiotics were given. The left arm was draped out over an arm table. The left arm was then prepped and draped in the standard sterile fashion. Prior to starting surgery timeout was performed identifying the correct patient, operative extremity, and procedure. I began by extending the puncture wound proximally and distally with a zigzag Sharon-type incision. There is a small amount of purulence expressed directly o jesus the proximal phalanx of the index finger. The wound was thoroughly irrigated with sterile saline using cystoscopy tubing. Deep cultures were taken. After the wound had been irrigated was explored. The infection did not violate the tendon sheath or extend down to bone or joint. There were no loose bodies. The wound was again thoroughly irrigated and loosely closed with 3-0 nylon. Iodoform was packed into the wound at the site of the bite. A sterile dressing was applied followed by an Gume wrap. The patient was awoken from her anesthetic and brought to recovery having tolerated the procedure well. Plan: The patient is going to be readmitted to the floor. We will take her dressing down on postoperative day #1 to examine her wound and pulled the iodoform wick. At that time I would like to commence warm water soaks and will transfer care of the wound to infectious disease. Cultures are pending and I will defer choice of antibiotic, route of administration, induration of tiesha tment infectious disease. We will continue to closely follow the patient while she has been patient.
[2019-07-12] MEDS: SYMBICORT 160-4.5 MCG INHALER INHALATION SCH (20:29)
[2019-07-12] MEDS: ATORVASTATIN 80 MG TAB PO SCH (20:32)
[2019-07-12] MEDS: FAMOTIDINE 20 MG TAB PO SCH (20:32)
[2019-07-12] MEDS: RIVAROXABAN 20 MG TAB PO SCH (20:32)
[2019-07-12] MEDS ORDERED: AMPICILLIN-SULBACTAM 3 GM in SODIUM CHLORIDE 0.9% 100 ML IVPB SCH (21:00)
[2019-07-13] MEDS: AMPICILLIN-SULBACTAM 3 GM in SODIUM CHLORIDE 0.9% 100 ML IVPB SCH ×5 (00:03→23:54)
[2019-07-13] MEDS: SODIUM CHLORIDE 0.9% 1,000 ML IV SCH ×2 (04:49→17:29)
[2019-07-13] MEDS: LEVOTHYROXINE 75 MCG TAB PO SCH (06:17)
[2019-07-13] MEDS: LEVOTHYROXINE 100 MCG TAB PO SCH (06:17)
[2019-07-13 07:53] LABS: Basophils % (A) 1 %; Eosinophils # (A) 0.1 k/uL (0-0.7); Eosinophils % (A) 2 %; HCT 40.9 % (34.0-46.0); HGB 12.6 gm/dL (11.4-16.0); Lymphocytes # (A) 1.8 k/uL (1.0-4.8); Lymphocytes % (A) 32 %; MCHC 30.7 g/dL (31.0-37.0); MCV 94.4 fL (80.0-100.0); Mean Platelet Volume 7.9; Monocytes # (A) 0.3 k/uL (0-1.0); Monocytes % (A) 6 %; Neutrophils # (A) 2.9 k/uL (1.3-7.7); Neutrophils % (A) 54 %; Platelet Count 133 k/uL (150-450); RBC 4.34 m/uL (3.80-5.40); RDW 13.4 % (11.5-15.5); WBC 5.4 k/uL (3.8-10.6)
[2019-07-13 08:25] LABS: C Reactive Protein 35.4 mg/L (<10.0); Potassium 4.2 mmol/L (3.5-5.1)
[2019-07-13] MEDS: FAMOTIDINE 20 MG TAB PO SCH ×2 (08:38→21:30)
[2019-07-13] MEDS: LORATADINE 10 MG TAB PO SCH (08:38)
[2019-07-13] MEDS: FUROSEMIDE 20 MG TAB PO SCH (08:39)
[2019-07-13] MEDS: LISINOPRIL 10 MG TAB PO SCH (08:39)
--- NOTE | 2019-07-13 08:53 | P.PN ---
Subjective This is a pleasant 69 years old female with past medical history of coronary artery disease, COPD, DVT, hyperlipidemia, hypertension, sleep apnea on CPAP, hypothyroidism. She presents because she got bit by her cat about 2 days ago, followed by pain and swelling and tenderness around the third and fourth metatarsal tarsal left joints with proximal spreading of the infection up to the distal forearm, more in line near fashion. Associated with limitation of flexion and extension of the left hand. No epicondyles or axillary lymphadenopathy. No fever. No other symptoms. She denies chest pain or dyspnea. No change in urine or bowel habits Vitas looks stable, patient is afebrile. No labs has been ordered yet, but going to do CBC, BMP and liver enzymes as well as PT/INR. Blood culture is ordered. Patient is already started on Unasyn and IV fluids 07/13/2019 Patient presents with left hand and index infection with possible pocket of pus, she is status post I and D by orthopedic team yesterday. Today is postoperative day #1. Left hand is wrapped in dressing however patient feels better and she can move her hand and finger better than when she came in. Culture has been sent, and pending. Patient is currently on Unasyn Review of systems CONSTITUTIONAL: No fever, no malaise, no fatigue. HEENT: No recent visual problems or hearing problems. Denied any sore throat. CARDIOVASCULAR: No orthopnea, PND, no palpitations, no syncope. PULMONARY: No shortness of breath, no cough, no hemoptysis. GASTROINTESTINAL: No diarrhea, no nausea, no vomiting, no abdominal pain. Normoactive bowel sounds. NEUROLOGICAL: No headaches, no weakness, no numbness. HEMATOLOGICAL: Denies any bleeding or petechiae. GENITOURINARY: Denies any burning micturition, frequency, or urgency. MUSCULOSKELETAL/RHEUMATOLOGICAL: Denies any joint pain, swelling, or any muscle pain. ENDOCRINE: Denies any polyuria or polydipsia. Active Medications Generic Name Dose Route Start Last Admin Trade Name Freq PRN Reason Stop Dose Admin Hydrocodone Bitart/Acetaminophen 1 each 07/12/19 12:49 [place] 5-325 PO Q4HR PRN Moderate Pain Atorvastatin Calcium 80 mg 07/12/19 21:00 07/12/19 20:32 Lipitor PO 80 mg HS DEZ Administration Budesonide/Formoterol Fumarate 2 puff 07/12/19 20:00 07/12/19 20:29 Symbicort 160-4.5 Mcg Inhaler INHALATION 2 puff RT-BID DEZ Administration Ergocalciferol 50,000 unit 07/18/19 12:39 Vitamin D2 PO SA DEZ Famotidine 20 mg 07/12/19 21:00 07/13/19 08:38 Pepcid PO 20 mg BID DEZ Administration Furosemide 20 mg 07/13/19 09:00 07/13/19 08:39 Lasix PO Not Given DAILY DEZ Sodium Chloride 1,000 mls @ 75 mls/hr 07/12/19 13:00 07/13/19 04:49 Saline 0.9% IV 75 mls/hr .[id number] DEZ Administration Ampicillin Sodium/Sulbactam 100 mls @ 200 mls/hr 07/12/19 18:00 07/13/19 06:16 Sodium 3 gm/ Sodium Chloride IVPB 200 mls/hr Q6H DEZ Administration Levothyroxine Sodium 100 mcg 07/13/19 06:30 07/13/19 06:17 Synthroid PO 100 mcg DAILY@0630 DEZ Administration Levothyroxine Sodium 75 mcg 07/13/19 06:30 07/13/19 06:17 Synthroid PO 75 mcg DAILY@0630 DEZ Administration Lisinopril 30 mg 07/13/19 09:00 07/13/19 08:39 Zestril PO Not Given DAILY DEZ Loratadine 10 mg 07/13/19 09:00 07/13/19 08:38 Claritin PO 10 mg DAILY DEZ Administration Naloxone HCl 0.2 mg 07/12/19 12:49 Narcan IV Q2M PRN Opioid Reversal Rivaroxaban 20 mg 07/12/19 21:00 07/12/19 20:32 Xarelto PO 20 mg HS DEZ Administration Objective - Vital Signs Vital signs: Vital Signs Temp 97.7 F 07/13/19 00:02 Pulse 54 L 07/13/19 00:02 Resp 16 07/13/19 00:02 BP 106/57 07/13/19 00:02 Pulse Ox 94 L 07/13/19 00:02 Intake & Output 07/12/19 07/13/19 07/13/19 18:59 06:59 18:59 Intake Total 701 Output Total 5 Balance 696 Weight 111.13 kg Intake: IV 701 Output: Estimated Blood Loss 5 Other: # Voids 1 1 - Exam GENERAL: The patient is alert and oriented x3, not in any acute distress. Well developed, well nourished. HEENT: Pupils are round and equally reacting to light. EOMI. No scleral icterus. No conjunctival pallor. Normocephalic, atraumatic. No pharyngeal erythema. No thyromegaly. CARDIOVASCULAR: S1 and S2 present. No murmurs, rubs, or gallops. PULMONARY: Chest is clear to auscultation, no wheezing or crackles. ABDOMEN: Soft, nontender, nondistended, normoactive bowel sounds. No palpable organomegaly. MUSCULOSKELETAL: No joint swelling or deformity. -EXTREMITIES: No cyanosis, clubbing, or pedal edema. Left hand is wrapped in a dressing, but her movement in her fingers of the left hand. Sensation is intact NEUROLOGICAL: Gross neurological examination did not reveal any focal deficits. SKIN: No rashes. no petechiae. - Labs CBC & Chem 7: 07/13/19 07:25 07/13/19 07:25 Labs: Abnormal Lab Results - Last 24 Hours (Table) 07/12/19 07/12/19 07/13/19 Range/Units 12:00 12:00 07:25 MCHC 30.7 L (31.0-37.0) g/dL Plt Count 133 L (150-450) k/uL Chloride (98-107) mmol/L Creatinine 1.10 H (0.52-1.04) mg/dL Alkaline Phosphatase 128 H (38-126) U/L C-Reactive Protein 24.1 H (<10.0) mg/L 07/13/19 Range/Units 07:25 MCHC (31.0-37.0) g/dL Plt Count (150-450) k/uL Chloride 111 H (98-107) mmol/L Creatinine (0.52-1.04) mg/dL Alkaline Phosphatase (38-126) U/L C-Reactive Protein 35.4 H (<10.0) mg/L Microbiology - Last 24 Hours (Table) 07/12/19 14:55 Gram Stain - Preliminary Hand - Left Wound Culture - Preliminary 07/12/19 16:41 Gram Stain - Preliminary Hand - Left Wound Culture - Preliminary 07/12/19 16:41 Anaerobic Culture - Preliminary Hand - Left Assessment and Plan Assessment: CAT bite Left hand cellulitis with abscess status post I and D, with ascending lymphangitis Hypertension Hyperlipidemia Sleep apnea on CPAP Hypothyroidism Chronic left leg DVT History of coronary artery disease Plan: This is a pleasant 69 years old female who presents with Bite. Continue with antibiotics. Follow-up infectious disease. Follow-up recommendation by orthopedic teamLabs and medication were reviewed.. Continue same treatment. Continue with symptomatic treatment. Resume home medication. Monitor lytes and vitals. Continue with xarelto and blood pressure medication. DVT and GI prophylaxis. Further recommendations of the clinical course of the patient DVT prophylaxis: xarelto GI Prophylaxis: Pepcid OT: Pending Prognosis is guarded
[2019-07-13] MEDS: HYDROGEN PEROXIDE BOTTLE TOPICAL SCH ×2 (10:26→22:44)
[2019-07-13] MEDS: SYMBICORT 160-4.5 MCG INHALER INHALATION SCH ×2 (10:50→20:54)
--- NOTE | 2019-07-13 15:41 | P.PN ---
Subjective Progress Note Date: 07/13/19 The patient is a right-hand dominant 69-year-old female with multiple medical problems including type 2 diabetes and coronary artery disease who was admitted to internal medicine with a left hand infection. According to the patient this last Saturday evening she was bit by one of her cats over the dorsum of her left index finger. She was found to have cellulitis and ascending lymphangitis in the ER, and was subsequently admitted to internal medicine with a consult placed to orthopedics for possible surgical intervention. Patient underwent an I&D of the left index finger on 07/12/[address] Go. Today is post-operative day #1. The patient states she is experiencing no pain in the left hand today. The pain was relived following surgery yesterday. She states she otherwise feels well. She is tolerating her diet well. She denies chest pain, shortness of breath, nausea, vomiting, fevers, chills. Vital signs stable. Objective - Vital Signs Vital signs: Vital Signs Temp 97.4 F L 07/13/19 11:55 Pulse 58 L 07/13/19 11:55 Resp 20 07/13/19 11:55 BP 131/73 07/13/19 11:55 Pulse Ox 96 07/13/19 11:55 Intake & Output 07/12/19 07/13/19 07/13/19 18:59 06:59 18:59 Intake Total 701 Output Total 5 Balance 696 Weight 111.13 kg Intake: IV 701 Output: Estimated Blood Loss 5 Other: # Voids 1 1 1 - Exam On examination, the patient is sitting up in bed in so apparent distress. He is alert and orientated x3. On inspection of the left hand, there is a surgical dressing in place. Dressing is taken down and reveals a incision over the dorsum of the index finger with intact nylon sutures. Iodoform packing in place, and is pulled out of the incision. There is mild erythema and swelling of the index finger and hand. No active drainage. No pain with PROM of the left index finger. She is able to flex and extend the finger without issue. No pain along the tendon sheath. No tenderness over the wrist, forearm, or elbow. Sensation is intact to light touch in the index and middle finger. The hand is warm and well perfused with brisk capillary refill of the fingers. - Labs CBC & Chem 7: 07/13/19 07:25 07/13/19 07:25 Labs: Abnormal Lab Results - Last 24 Hours (Table) 07/12/19 07/13/19 07/13/19 Range/Units 12:00 07:25 07:25 MCHC 30.7 L (31.0-37.0) g/dL Plt Count 133 L (150-450) k/uL Chloride 111 H (98-107) mmol/L C-Reactive Protein 24.1 H 35.4 H (<10.0) mg/L Microbiology - Last 24 Hours (Table) 07/12/19 14:55 Gram Stain - Preliminary Hand - Left Wound Culture - Preliminary 07/12/19 16:41 Gram Stain - Preliminary Hand - Left Wound Culture - Preliminary 07/12/19 16:41 Anaerobic Culture - Preliminary Hand - Left Assessment and Plan Assessment: Left index finger cellulitis with deep abscess status-post I&D on 07/12/19. Po st-operative day #1. Plan: - Iodoform packing was removed from the wound today. Recommended warm water soaks BID of the left index finger. - We will continue to follow cultures results. - We will defer wound care to the infectious disease team moving forward. - Continue IV antibiotics and pain control per admitting team. - We will continue to follow patient while she remains inpatient and make recommendations as needed. Patient discussed with Dr. Go.
--- NOTE | 2019-07-13 16:25 | PN ---
PROGRESS NOTE DATE OF SERVICE: 07/13/2019 REASON FOR FOLLOWUP: Left hand cat bite cellulitis and abscess. INTERVAL HISTORY: The patient is currently afebrile. The patient was taken to the OR yesterday and is status post drainage of the abscess. The patient tolerated the procedure. The patient denies having any chest pain or shortness of breath or cough. No nausea, no vomiting, or any worsening pain to the left hand area. PHYSICAL EXAMINATION: Blood pressure is 131/73 with a pulse of 58, temperature 97.4. She is 96% on room air. General description is an elderly female up in the bed in no distress. RESPIRATORY SYSTEM: Unlabored breathing. Clear to auscultation anteriorly. HEART: S1, S2. Regular rate and rhythm. ABDOMEN: Soft. No tenderness. Left hand is currently dressed up. No obvious drainage on the dressing. LABS: Hemoglobin 12.6, white count 5.4, BUN of 16, creatinine 0.99. Cultures are currently pending. DIAGNOSTIC IMPRESSION AND PLAN: Patient with extensive infection, left hand, from a cat bite, status post drainage of the abscess, which extended down to the extensor sheath, but no involvement of the sheath or the bone, covered with Unasyn; to continue. Will wait for the culture to finalize to determine her discharge antibiotics. Continue with supportive care. MMODL / IJN: [id number] / MICK
[2019-07-13] MEDS: ATORVASTATIN 80 MG TAB PO SCH (21:30)
[2019-07-13] MEDS: RIVAROXABAN 20 MG TAB PO SCH (22:00)
[2019-07-14] MEDS: LEVOTHYROXINE 75 MCG TAB PO SCH (06:14)
[2019-07-14] MEDS: AMPICILLIN-SULBACTAM 3 GM in SODIUM CHLORIDE 0.9% 100 ML IVPB SCH ×4 (06:14→22:46)
[2019-07-14] MEDS: LEVOTHYROXINE 100 MCG TAB PO SCH (06:14)
[2019-07-14] MEDS: SYMBICORT 160-4.5 MCG INHALER INHALATION SCH ×2 (08:35→21:31)
--- NOTE | 2019-07-14 09:11 | P.PN ---
Subjective Progress Note Date: 07/14/19 The patient is a right-hand dominant 69-year-old female with multiple medical problems including type 2 diabetes and coronary artery disease who was admitted to internal medicine with a left hand infection. According to the patient this last Saturday evening she was bit by one of her cats over the dorsum of her left index finger. She was found to have cellulitis and ascending lymphangitis in the ER, and was subsequently admitted to internal medicine with a consult placed to orthopedics for possible surgical intervention. Patient underwent an I&D of the left index finger on 07/12/[address] Go. Today is post-operative day #2. The patient is doing well today. She is experiencing mild - no pain in the left index finger. She states she is having no pain with movement of the left index finger. She is tolerating her diet well. She denies chest pain, shortness breath, nausea, vomiting, fevers, chills. Vital signs stable. Objective - Vital Signs Vital signs: Vital Signs Temp 97.9 F 07/14/19 07:00 Pulse 59 L 07/14/19 07:00 Resp 16 07/14/19 07:00 BP 152/79 07/14/19 07:00 Pulse Ox 91 L 07/14/19 07:00 Intake & Output 07/13/19 07/14/19 07/14/19 18:59 06:59 18:59 Other: # Voids 2 - Exam On examination, the patient is sitting up in bed in so apparent distress. She is alert and orientated x3. On inspection of the left hand, there is a surgical dr srinathing in place. Dressing is taken down and reveals a incision over the dorsum of the index finger with intact nylon sutures. There is mild erythema and swelling of the index finger and hand. No active drainage. No pain with PROM of the left index finger. No pain along the tendon sheath. No tenderness over the wrist, forearm, or elbow. Sensation is intact to light touch in the index and middle finger. The hand is warm and well perfused with brisk capillary refill of the fingers. - Labs CBC & Chem 7: 07/13/19 07:25 07/13/19 07:25 Labs: Microbiology - Last 24 Hours (Table) 07/12/19 12:00 Blood Culture - Preliminary Blood No Growth after 24 hours Assessment and Plan Assessment: Left index finger cellulitis with deep abscess status-post I&D on 07/12/19. Post-operative day #2. Plan: - Continue warm water soaks BID of the left index finger. We will defer further wound care to the infectious disease team. - We will continue to follow cultures results. - Continue IV antibiotics and pain control per admitting team and infectious disease. - We will continue to follow patient while she remains inpatient and make recommendations as needed. Patient discussed with Dr. Go.
[2019-07-14] MEDS: LISINOPRIL 10 MG TAB PO SCH (09:18)
[2019-07-14] MEDS: FUROSEMIDE 20 MG TAB PO SCH (09:19)
[2019-07-14] MEDS: HYDROGEN PEROXIDE BOTTLE TOPICAL SCH ×2 (09:19→21:11)
[2019-07-14] MEDS: LORATADINE 10 MG TAB PO SCH (09:19)
[2019-07-14] MEDS: FAMOTIDINE 20 MG TAB PO SCH ×2 (09:19→20:18)
[2019-07-14] MEDS: SODIUM CHLORIDE 0.9% 1,000 ML IV SCH ×2 (12:22→15:36)
--- NOTE | 2019-07-14 15:40 | PN ---
PROGRESS NOTE DATE OF SERVICE: 07/14/2019 This 69-year-old woman who was admitted with cat bite and left hand cellulitis is on IV antibiotics. The patient had incision and drainage by Orthopedics. There is no chest pain or palpitations. No fever. PHYSICAL EXAMINATION: Alert and oriented x3. Pulse 51, blood pressure 152/79, respirations 16, temperature 97.9, pulse ox 94% on room air. HEENT: Conjunctivae normal. NECK: No JVD. CARDIOVASCULAR: S1, S2 muffled. RESPIRATION: Breath sounds diminished in the bases. No rhonchi. No crackles. ABDOMEN: Soft. Nontender. No mass palpable. LEGS: No edema, no swelling. Examination of the left hand: Status post incision and drainage and cellulitis. LABS: WBC is 5.5, hemoglobin is 12.6, platelets 130. Sodium 140, potassium 4.2. C-reactive protein is 35.4. ASSESSMENT: 1. Status post left hand cellulitis and abscess, status post incision and drainage with ascending lymphangitis secondary to cat bite. 2. Hypertension. 3. Hyperlipidemia. 4. Sleep apnea, on CPAP. 5. Hypothyroidism. 6. Chronic left leg deep venous thrombosis. 7. History of coronary artery disease. RECOMMENDATIONS: Recommend to continue with the monitoring and symptomatic treatment. Otherwise, at this time I would recommend continue with IV antibiotics and close followup with Infectious Disease and Orthopedic Surgery. Guarded prognosis. Further recommendations to follow. MMODL / ERAN: [id number] /
[2019-07-14] MEDS: ATORVASTATIN 80 MG TAB PO SCH (20:18)
[2019-07-14] MEDS: RIVAROXABAN 20 MG TAB PO SCH (21:11)
--- NOTE | 2019-07-14 23:43 | PN ---
PROGRESS NOTE DATE OF SERVICE: 07/14/2019. REASON FOR FOLLOWUP: Left hand cat bite cellulitis and abscess gram-negative. INTERVAL HISTORY: The patient is currently afebrile. The patient has been breathing comfortably. The patient denies having any chest pain. No cough. No nausea, vomiting, or any worsening pain to the left hand area and no diarrhea. PHYSICAL EXAMINATION: Blood pressure 157/68 with a pulse of 54, temperature 97.8. She is 98% on room air. General description is an elderly female lying in bed in no distress. Respiratory system: Unlabored breathing and clear to auscultation anteriorly. Heart S1, S2. Regular rate and rhythm. Abdomen soft, no tenderness. Left hand swelling and redness has improved. LABS: Wound culture currently showing gram-negative bacilli. DIAGNOSTIC IMPRESSION AND PLAN: Patient with left hand cat bite abscess and cellulitis. Culture with a gram-negative. The patient is currently covered with Unasyn 3 g q.6h. Continue while waiting for the final ID sensitivities of this pathogen to determine discharge antibiotics. We will also check for outpatient IV antibiotic therapy coverage as the patient may benefit from outpatient antibiotics for at least 2 weeks in view of extensive infection. Continue supportive care. MMODL / IJN: [id number] /
[2019-07-15] MEDS: AMPICILLIN-SULBACTAM 3 GM in SODIUM CHLORIDE 0.9% 100 ML IVPB SCH ×4 (05:02→22:58)
[2019-07-15] MEDS: LEVOTHYROXINE 100 MCG TAB PO SCH (05:02)
[2019-07-15] MEDS: LEVOTHYROXINE 75 MCG TAB PO SCH (05:02)
[2019-07-15] MEDS: LORATADINE 10 MG TAB PO SCH (08:33)
[2019-07-15] MEDS: FUROSEMIDE 20 MG TAB PO SCH (08:33)
[2019-07-15] MEDS: HYDROGEN PEROXIDE BOTTLE TOPICAL SCH ×2 (08:33→20:16)
[2019-07-15] MEDS: LISINOPRIL 10 MG TAB PO SCH (08:33)
[2019-07-15] MEDS: FAMOTIDINE 20 MG TAB PO SCH ×2 (08:33→20:16)
--- NOTE | 2019-07-15 08:36 | P.PN ---
Subjective Progress Note Date: 07/15/19 The patient is a right-hand dominant 69-year-old female with multiple medical problems including type 2 diabetes and coronary artery disease who was admitted to internal medicine with a left hand infection. According to the patient this last Saturday evening she was bit by one of her cats over the dorsum of her left index finger. She was found to have cellulitis and ascending lymphangitis in the ER, and was subsequently admitted to internal medicine with a consult placed to orthopedics for possible surgical intervention. Patient underwent an I&D of the left index finger on 07/12/[address] Go. Today is post-operative day #3. The patient is doing well today. She continues to experience mild pain in the left index finger, no increases in pain post- operatively. She continues to perform warm water soaks of the left hand twice a day. She is tolerating her diet well. She denies chest pain, shortness breath, nausea, vomiting, fevers, chills. Vital signs stable. Objective - Vital Signs Vital signs: Vital Signs Temp 97.5 F L 07/15/19 07:00 Pulse 55 L 07/15/19 07:00 Resp 17 07/15/19 07:00 BP 112/50 07/15/19 07:00 Pulse Ox 97 07/15/19 07:00 Intake & Output 07/14/19 07/15/19 07/15/19 18:59 06:59 18:59 Intake Total 960 Balance 960 Intake: Oral 960 Other: Voiding Method Toilet Toilet - Exam On examination, the patient is sitting up in bed in no apparent distress. She is alert and orientated x3. On inspection of the left hand, there is a dressing in place. Dressing is taken down and reveals a incision over the dorsum of the i ndex finger with intact nylon sutures. There is mild erythema and swelling of the index finger. No active drainage. No pain with PROM of the left index finger. No pain along the tendon sheath. No tenderness over the wrist, forearm, or elbow. Sensation is intact to light touch in the index and middle finger. The hand is warm and well perfused with brisk capillary refill of the fingers. - Labs CBC & Chem 7: 07/13/19 07:25 07/13/19 07:25 Labs: Microbiology - Last 24 Hours (Table) 07/12/19 16:41 Gram Stain - Preliminary Hand - Left Wound Culture - Preliminary Gram Neg Bacilli 07/12/19 14:55 Gram Stain - Preliminary Hand - Left Wound Culture - Preliminary Gram Neg Bacilli 07/12/19 12:00 Blood Culture - Preliminary Blood No Growth after 48 hours Assessment and Plan Assessment: Left index finger cellulitis with deep abscess status-post I&D on 07/12/19. Post-operative day #3. Plan: - Continue warm water soaks BID of the left index finger. We will defer further wound care to the infectious disease team. - We will continue to follow cultures results. Cultures showing gram negative bacilli. - Continue IV antibiotics and pain control per admitting team and infectious disease. - We will continue to follow patient while she remains inpatient and make recommendations as needed. Patient discussed with Dr. Go.
[2019-07-15] MEDS: SYMBICORT 160-4.5 MCG INHALER INHALATION SCH ×2 (08:39→21:40)
[2019-07-15] MEDS: SODIUM CHLORIDE 0.9% 1,000 ML IV SCH (11:10)
--- NOTE | 2019-07-15 11:55 | P.CON ---
Consult Note - . Consult date: 07/15/19 Assessment/Plan:: This is a 69-year-old pleasant female being seen by wound care center for a incision to the left index finger. The patient suffered a cat bite on Saturday that progressively got worse. She was seen on Saturday underwent a I&D of the area and is currently on antibiotics. Per infectious disease she will continue with antibiotics for at least another 2 weeks. The incision is being treated with peroxide and warm water soaks twice a day. Area still is sutured. Incision is well approximated except for the distal 1 cm of the incision is open. Minimal sanguinous drainage is noted from the site. No purulent drainage seen. No erythema or induration noted. Patient has range of motion passive and active. Review of systems: Integumentary: Reports lesion, denies pruritus, denies erythema, denies edema Physical exam: Integumentary: See HPI Assessment/plan: 1. Cellulitis related to Bite status post I&D. Cleanse wound daily with soap and water dry thoroughly. Apply mupirocin once a day to site covered with nonadherent dressing, rolled gauze and elastic wrap if needed for edema control. Continue until area is healed. Discussed with patient that if the ulceration worsens to call the wound care center for further evaluation. Patient verbalized understanding. Thank you for the consultation. Any questions please contact the wound center. DNP note has been reviewed and discussed with Dr. Garcia and the impression and plan of care has been directed as dictated.
[2019-07-15] MEDS ORDERED: MUPIROCIN 2% OINT 22 GM TUBE TOPICAL SCH (12:00)
--- NOTE | 2019-07-15 17:58 | PN ---
PROGRESS NOTE DATE OF SERVICE: 07/15/2019 REASON FOR FOLLOWUP: Left hand cat bite abscess and cellulitis. INTERVAL HISTORY: The patient is currently afebrile. The patient is breathing comfortably. The patient denies having any chest pain or shortness of breath or cough. No nausea, no vomiting or pain to the left hand area. PHYSICAL EXAMINATION: Blood pressure 140/71 with pulse of 54, temperature 97.9. She is 95% on room air. General description is an elderly female up in the chair in no distress. RESPIRATORY SYSTEM: Unlabored breathing. Clear to auscultation anteriorly. HEART: S1, S2. Regular rate and rhythm. ABDOMEN: Soft. No tenderness. Left hand wound is currently dressed up. No obvious drainage on the dressing. LABS: Wound culture is currently showing gram-negative. DIAGNOSTIC IMPRESSION AND PLAN: Patient with left hand abscess and cellulitis from a cat bite, status post drainage of the abscess. Wound culture is currently showing a gram-negative. Waiting for the final identification of this gram-negative to determine her discharge antibiotics. Currently on Unasyn; to continue. She will need a midline for outpatient IV antibiotic therapy. Continue with supportive care. MMODL / IJN: [id number] /
[2019-07-15] MEDS: ATORVASTATIN 80 MG TAB PO SCH (20:16)
[2019-07-15] MEDS: RIVAROXABAN 20 MG TAB PO SCH (20:16)
--- NOTE | 2019-07-15 23:53 | PN ---
PROGRESS NOTE DATE OF SERVICE: 07/15/2019 This 69-year-old woman who was admitted after left hand cellulitis and abscess after a cat bite is being closely monitored at this time. The patient had incision and drainage. The patient is on IV antibiotics. No chest pain. No palpitations. No fever. PHYSICAL EXAMINATION: Patient alert and oriented x3. Pulse is 53, blood pressure 139/65, respirations 17, temperature 97.7, pulse ox 99% on room air. HEENT: Conjunctivae normal. NECK: No jugular venous distention. CARDIOVASCULAR SYSTEM: S1, S2 muffled. RESPIRATORY SYSTEM: Breath sounds diminished at the bases. No rhonchi. No crackles. ABDOMEN: Soft, non-tender. LEGS: No edema. No swelling. NERVOUS SYSTEM: No focal deficit. LABS: WBC 5.5, hemoglobin 12.6 and platelets 133. C-reactive protein is 35.4. ASSESSMENT: 1. 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 2. Hypertension. 3. Hyperlipidemia. 4. Sleep apnea, on CPAP. 5. Hypothyroidism. 6. Chronic left leg deep venous thrombosis before. 7. History of coronary artery disease. RECOMMENDATIONS AND DISCUSSION: I recommend to continue current medications. Continue symptomatic treatment. The cultures showed Pasteurella multocida. Will continue to monitor. Continue with antibiotics. Further recommendations to follow. Guarded prognosis. MMODL / IJN: [id number] /
[2019-07-16] MEDS: SODIUM CHLORIDE 0.9% 1,000 ML IV SCH (03:30)
[2019-07-16] MEDS: LEVOTHYROXINE 100 MCG TAB PO SCH (05:08)
[2019-07-16] MEDS: AMPICILLIN-SULBACTAM 3 GM in SODIUM CHLORIDE 0.9% 100 ML IVPB SCH (05:08)
[2019-07-16] MEDS: LEVOTHYROXINE 75 MCG TAB PO SCH (05:08)
[2019-07-16] MEDS: LORATADINE 10 MG TAB PO SCH (07:54)
[2019-07-16] MEDS: LISINOPRIL 10 MG TAB PO SCH (07:54)
[2019-07-16] MEDS: FAMOTIDINE 20 MG TAB PO SCH (07:54)
[2019-07-16] MEDS: FUROSEMIDE 20 MG TAB PO SCH (07:54)
[2019-07-16] MEDS: HYDROGEN PEROXIDE BOTTLE TOPICAL SCH (07:55)
[2019-07-16] MEDS: SYMBICORT 160-4.5 MCG INHALER INHALATION SCH (08:43)
[2019-07-16 14:51] VITALS: BP 136/81; PULSE 66; RESP 16; TEMP 97.8
--- NOTE | 2019-07-16 15:19 | PN ---
PROGRESS NOTE DATE OF SERVICE: 07/16/2019 REASON FOR FOLLOWUP: Left hand cat bite cellulitis and abscess. INTERVAL HISTORY: The patient is currently afebrile. Patient is breathing comfortably. Denies having any chest pain. No cough. No nausea, no vomiting, or any worsening pain in the left hand area. PHYSICAL EXAMINATION: Her blood pressure is 100/60 with a pulse of 54, temperature 98, she is 93% on room air. General description is an elderly female, up in the chair in no distress. RESPIRATORY SYSTEM: Unlabored breathing, clear to auscultation anteriorly. HEART: S1, S2. Regular rate and rhythm. ABDOMEN: Soft, no tenderness. Left hand is currently dressed up, no obvious drainage on the dressing. LABS: Wound culture with postural and anaerobic gram-negative bacilli. DIAGNOSTIC IMPRESSION AND PLAN: Patient with left hand abscess and cellulitis cat bite. Patient is currently on the Unasyn. Antibiotic was switched over to Rocephin 2 g daily and Flagyl 500 mg p.o. q.8 hours for 2 weeks and close outpatient followup. MMODL / IJN: [id number] / MTDD
--- NOTE | 2019-07-17 00:27 | DS ---
DISCHARGE SUMMARY DATE OF ADMISSION: 07/12/2019 DATE OF DISCHARGE: 07/16/2019 FINAL DIAGNOSES: 1. Acute cat bite to the right index finger causing cellulitis and abscess with cultures growing Pasteurella multocida. 2. Obesity; body mass index of 37.3. 3. Chronic obstructive pulmonary disease. 4. Essential hypertension. 5. Hyperlipidemia. 6. Obstructive sleep apnea. Does not use a CPAP machine. 7. Hypothyroid. 8. Chronic deep venous thrombosis, for which patient is on Xarelto. CONSULTATIONS: 1. Dr. Sanford from ID. 2. Dr. Garcia from Vascular Surgery. 3. Dr. Go from Orthopedics. HOSPITAL COURSE: This very pleasant 69-year-old patient of Dr. Toscano presented after being bitten by a cat 2 days before presentation. She presented with pain, swelling and tenderness around the left index finger and the left hand. The patient was taken to the OR and I&D was carried out by Dr. Go. Tendon was not involved. She was doing much better by the time of discharge. PHYSICAL EXAMINATION: VITAL SIGNS: Temperature 97.8, pulse 97, respiration 16, blood pressure 136/81, pulse ox 99% on room air. LUNGS: Fair air entry. CARDIOVASCULAR: First and second sounds normal. Dressing over the left hand. INVESTIGATIONS: White count 5.4, hemoglobin 12.6, potassium 4.2, creatinine 0.99. C-reactive protein was 35.4. Cultures from the wound growing Pasteurella multocida. Blood cultures were negative. DISCHARGE MEDICATIONS: 1. Symbicort 160/4.5 two puffs b.i.d. 2. Vitamin D2 50,000 units on Saturday. 3. Xarelto 20 mg at bedtime. 4. Spiriva 1 capsule inhalation at bedtime. 5. Lipitor 80 mg at bedtime. 6. Pepcid 20 mg p.o. b.i.d. 7. Claritin 10 mg p.o. daily. 8. Plavix 75 mg p.o. daily. 9. Synthroid 175 mcg p.o. daily. 10.Zestril 20 mg p.o. daily. 11.Ventolin HFA 1 or 2 puffs q.6 p.r.n. 12.Lasix 20 mg p.o. daily. 13.Ceftriaxone 2000 mg q.24 hours for 14 days. 14.Flagyl 500 mg q.8; 42 tablets. Dressing changes to continue as per Dr. Garcia. Follow up with Dr. Toscano on 07/20/2019. Follow up with Dr. Sanford in one week. Follow up with Dr. Go in one week. Home antibiotics were arranged. MMODL / IJN: [id number] /
[2019-07-18] MEDS ORDERED: ERGOCALCIFEROL 50,000 UNIT CAP PO SCH (12:39)
--- NOTE | 2019-07-23 01:10 | CDI ---
Documentation Clarification Form Date: 07/23/19 From: William Milligan Phone: If you have a question about this query, please contact Arabella Love, Automotive Designer at [phone] between 8am and 5pm. Admit Date: 07/12/19 Discharge Date: 07/16/19 Patient Name: Sade Cobb Visit Number: [id number] ATTENTION: The Clinical Documentation Specialists (CDI) and [facility] Coding Staff appreciate your assistance in clarifying documentation. Please respond to the clarification below the line at the bottom and electronically sign. The CDI & [facility] Coding staff will review the response and follow-up if needed. Please note: Queries are made part of the Legal Health Record. If you have any questions, please contact the author of this message via ITS. Dear Dr Donavan De Jesus, Documentation in the Operative Report included :I began by extending the puncture wound proximally and distally with a zigzag Sharon-type incision.There is a small amount of purulence expressed directly over the proximal phalanx of the index finger.The wound was thoroughly irrigated with sterile saline using cystoscopy tubing.Deep cultures were taken.After the wound had been irrigated was explored.The infection did not violate the tendon sheath or extend down to bone or joint.There were no loose bodies.The wound was again thoroughly irrigated and loosely closed with 3-0 nylon. History/Risk factors: CAt bite, Cellulitis, abscess. Pre-Operative Diagnosis: Abscess,Puncture wound Postoperative Diagnosis: Abscess, Puncture wound. Treatment: Iv antibiotics. In order to capture the severity of condition, please specify the Depth of Incision: Subcutaneous tissue and fascia Muscles Tendons Anatomical Region of finger operative note updated MTDD
== END 2019-07-16 14:32 | disposition home or self-care (01) ==
LOC: EC 11:00 → 6PED 12:55 → 4SSUR 07-13 19:04 → OBSVTOIN 07-14 15:20 → INTOOBSV 07-14 15:20 → UNDODISIN 07-16 14:32
PROVIDERS: ADMIT Hospitalist; ATTEND Hospitalist
DX: S61.231A Puncture wound without foreign body of left index finger without damage to nail, initial encounter (principal); L02.512 Cutaneous abscess of left hand; I82.502 Chronic embolism and thrombosis of unspecified deep veins of left lower extremity; L03.012 Cellulitis of left finger; I25.10 Atherosclerotic heart disease of native coronary artery without angina pectoris; J44.9 Chronic obstructive pulmonary disease, unspecified; E78.5 Hyperlipidemia, unspecified; G47.33 Obstructive sleep apnea (adult) (pediatric); E03.9 Hypothyroidism, unspecified; I10 Essential (primary) hypertension; E66.9 Obesity, unspecified; Z68.37 Body mass index [BMI] 37.0-37.9, adult; E11.9 Type 2 diabetes mellitus without complications; B96.89 Other specified bacterial agents as the cause of diseases classified elsewhere; Z79.890 Hormone replacement therapy; Z79.899 Other long term (current) drug therapy; Z79.51 Long term (current) use of inhaled steroids; Z79.02 Long term (current) use of antithrombotics/antiplatelets; Z79.01 Long term (current) use of anticoagulants; Z88.1 Allergy status to other antibiotic agents; W55.01XA Bitten by cat, initial encounter; Z90.89 Acquired absence of other organs; Z98.890 Other specified postprocedural states; Z87.891 Personal history of nicotine dependence; Z82.3 Family history of stroke; Z84.89 Family history of other specified conditions; Z90.49 Acquired absence of other specified parts of digestive tract
CPT/HCPCS: 96361 ×4; 96366 ×5; 96367; 96365; 99284; 36415; 94640 ×7; 97166; 36410; 76937; 80053; 80048; 85652; 83605; 85025 ×2; 86140 ×2; 87040; 87070; 87205; 87075; 73130; G0378 ×6; C1751; J2250; J0690; J0696; J0295 ×5; J0330; J2704

== ENCOUNTER → 2019-07-17 | Day surgery (SDC) | payer MEDICARE | LOC: CATHCVL 13:23 | PROVIDERS: ATTEND Internal Medicine Infectious Disease | DX: L03.114 Cellulitis of left upper limb (principal) | CPT/HCPCS: 36410; 76937; C1751 ==

== ENCOUNTER 2019-09-29 00:01 | Emergency (ER) | payer MEDICARE ==
[2019-09-29 00:27] VITALS: PULSE 81; RESP 20; TEMP 97.8
[2019-09-29] MEDS ORDERED: AMOXIC-POT CLAV 875-125MG 1 EACH TAB PO STA (01:02)
[2019-09-29] MEDS ORDERED: AMOXIC-POT CLAV 875MG STARTER 2 EACH TABLET PO STA (01:02)
--- NOTE | 2019-09-29 01:02 | ED ---
Animal Bite HPI - General Source: RN notes reviewed, old records reviewed <MichaelJazmyne - Last Filed: 09/29/19 01:38> - General Source: patient Mode of arrival: ambulatory Limitations: no limitations - History of Present Illness MD Complaint: animal bite, other (Right) -: hour(s) Description: household pet Mechanism: bite Pain Description: burning Severity scale (1-10): 5 Context: playing with animal Associated Symptoms: none Treatments Prior to Arrival: wound dressing(s) <Ashwin Raygoza - Last Filed: 10/03/19 03:48> - General Chief Complaint: Animal Bite Stated Complaint: cat bite Time Seen by Provider: 09/29/19 00:59 - History of Present Illness Initial Comments: Please of-year-old female presents today with a Bite injury over her left second digit. Patient reports that her cat bit her just before arrival. She states she cleaned it out did apply antibiotic ointment afterwards. Patient was recently admitted for Bite and reports she went to get on antibiotics early before she would have to be admitted. Patient states that she has no fevers chills or any other complaints. (Jazmyne Rodriguez) - Related Data Home Medications Medication Instructions Recorded Confirmed Budesonide-Formot 160-4.5 Mcg 2 puff INHALATION RT-BID 11/13/15 07/12/19 [Symbicort 160-4.5 Mcg Inhaler] Ergocalciferol [Vitamin D2 50,000 unit PO SA 11/13/15 07/12/19 (DRISDOL)] Rivaroxaban [Xarelto] 20 mg PO HS 11/13/15 07/12/19 Tiotropium [place] [Spiriva] 1 cap INHALATION RT-HS 11/13/15 07/12/19 Loratadine [Claritin] 10 mg PO DAILY 01/01/19 07/12/19 Clopidogrel Bisulfate [Plavix] 75 mg PO DAILY 04/22/19 07/12/19 Levothyroxine Sodium [Synthroid] 175 mcg PO DAILY 04/22/19 07/12/19 Lisinopril [Zestril] 30 mg PO DAILY 04/22/19 07/12/19 Albuterol Sulfate [Ventolin HFA] 1 - 2 puff INHALATION RT-Q6H PRN 07/12/19 07/12/19 Furosemide [Lasix] 20 mg PO DAILY 07/12/19 07/12/19 Previous Rx's Medication Instructions Recorded Atorvastatin Calcium [Lipitor] 80 mg PO HS #30 tablet 09/22/18 Famotidine [Pepcid] 20 mg PO BID #60 tablet 09/22/18 cefTRIAXone [Rocephin] 2,000 mg IVP Q24HR #14 syr 07/16/19 metroNIDAZOLE [Flagyl] 500 mg PO Q8HR #42 tab 07/16/19 Amoxic-Pot Clav 875-125Mg 1 tab PO Q12HR #20 tablet 09/29/19 [Augmentin 875-125] Allergies Allergy/AdvReac Type Severity Reaction Status Date / Time ciprofloxacin Allergy Swelling-SEE Verified 09/29/19 00:27 COMMENT tobramycin Allergy Swelling Verified 09/29/19 00:27 Review of Systems ROS Other: All systems not noted in ROS Statement are negative. <Jazmyne Rodriguez - Last Filed: 09/29/19 01:38> ROS Other: All systems not noted in ROS Statement are negative. <Ashwin Raygoza - Last Filed: 10/03/19 03:48> ROS Statement: Those systems with pertinent positive or pertinent negative responses have been documented in the HPI. Past Medical History Past Medical History: Coronary Artery Disease (CAD), COPD, Deep Vein Thrombosis (DVT), Hyperlipidemia, Hypertension, Sleep Apnea/CPAP/BIPAP, Thyroid Disorder Additional Past Medical History / Comment(s): Hx left leg dvt, no CPAP use. 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 Right arm surgery. Past Anesthesia/Blood Transfusion Reactions: Motion Sickness Past Psychological History: No Psychological Hx Reported Smoking Status: Former smoker Past Alcohol Use History: Rare Past Drug Use History: None Reported - Past Family History Father Family Medical History: No Reported History Additional Family Medical History / Comment(s): Father of suicide. Mother Additional Family Medical History / Comment(s): Mother with high sugar "i nsulin stroke" emergency without prior known history. HX POLYPS <Ashwin Raygoza - Last Filed: 10/03/19 03:48> General Exam General appearance: alert, in no apparent distress Head exam: Present: atraumatic, normocephalic, normal inspection Eye exam: Present: normal appearance, PERRL, EOMI. Absent: scleral icterus, conjunctival injection, periorbital swelling ENT exam: Present: normal exam, mucous membranes moist Neck exam: Present: normal inspection. Absent: tenderness, meningismus, lymphadenopathy Respiratory exam: Present: normal lung sounds bilaterally. Absent: respiratory distress, wheezes, rales, rhonchi, stridor Cardiovascular Exam: Present: regular rate, normal rhythm, normal heart sounds. Absent: systolic murmur, diastolic murmur, rubs, gallop, clicks GI/Abdominal exam: Present: soft, normal bowel sounds. Absent: distended, tenderness, guarding, rebound, rigid Extremities exam: Present: normal inspection, full ROM, normal capillary refill, other (2 small puncture wounds of her left index finger at the PIP. Patient has full range of motion of the finger. No erythema or swelling at this time.). Ab sent: tenderness, pedal edema, joint swelling, calf tenderness Back exam: Present: normal inspection Neurological exam: Present: alert, oriented X3, CN II-XII intact <Jazmyne Rodriguez - Last Filed: 09/29/19 01:38> Limitations: no limitations <Ashwin Raygoza - Last Filed: 10/03/19 03:48> - General Exam Comments Initial Comments: 69-year-old female. Alert and oriented 3. No distress. (Jazmyne Rodriguez) Course Vital Signs 09/29/19 09/29/19 00:24 01:19 Temperature 97.8 F Pulse Rate 81 Respiratory 20 Rate Blood Pressure 117/67 O2 Sat by Pulse 97 Oximetry Medical Decision Making <Jazmyne Rodriguez - Last Filed: 09/29/19 01:38> - Medical Decision Making Patient is a 69-year-old female presents for Bite over her left hand. Wounds were thoroughly irrigated over the left index finger. I discussed monitoring for infection including redness swelling or drainage. Patient was started on Augmentin. Patient advised close follow-up with primary care doctor. All questions answered. (Jazmyne Rodriguez) Disposition <Jazmyne Rodriguez - Last Filed: 09/29/19 01:38> Is patient prescribed a controlled substance at d/c from ED?: No <Ashwin Raygoza - Last Filed: 10/03/19 03:48> Clinical Impression: Bite by animal, Cat bite Disposition: HOME SELF-CARE Instructions (If sedation given, give patient instructions): Animal Bite (ED) Prescriptions: Amoxic-Pot Clav 875-125Mg [Augmentin 875-125] 1 tab PO Q12HR #20 tablet Referrals: Yuriy Toscano DO [Primary Care Provider] - 1-2 days
[2019-09-29 01:53] VITALS: BP 117/67
== END 2019-09-29 01:53 | disposition home or self-care (01) ==
LOC: EC 00:01
DX: S61.251A Open bite of left index finger without damage to nail, initial encounter (principal); I25.10 Atherosclerotic heart disease of native coronary artery without angina pectoris; J44.9 Chronic obstructive pulmonary disease, unspecified; I10 Essential (primary) hypertension; E07.9 Disorder of thyroid, unspecified; Z87.891 Personal history of nicotine dependence; Z88.1 Allergy status to other antibiotic agents; Z79.01 Long term (current) use of anticoagulants; Z79.02 Long term (current) use of antithrombotics/antiplatelets; Z79.51 Long term (current) use of inhaled steroids; Z79.890 Hormone replacement therapy; Z79.899 Other long term (current) drug therapy; Z86.718 Personal history of other venous thrombosis and embolism; W55.01XA Bitten by cat, initial encounter
CPT/HCPCS: 99283

== ENCOUNTER → 2019-10-13 | Outpatient (CLI) | payer MEDICARE ==
--- NOTE | 2019-10-15 10:04 | MM ---
Reason for exam: screening (asymptomatic). Last mammogram was performed 1 year and 3 months ago. History: Patient is postmenopausal. Took hormonal contraceptives for 12 years. Took estrogen for 3 years. Physical Findings: A clinical breast exam by your physician is recommended on an annual basis and results should be correlated with mammographic findings. MG 3D Screening Mammo W/Cad Bilateral CC and MLO view(s) were taken. Prior study comparison: July 14, 2018, bilateral MG 3d screening mammo w/cad. There are scattered fibroglandular densities. New areas of early fat necrosis central left breast. No significant changes when compared with prior studies. ASSESSMENT: Benign, BI-RAD 2 RECOMMENDATION: Routine screening mammogram of both breasts in 1 year. Manage patient on a clinical basis. Correlate for any injury to the left breast given new areas of early fat necrosis.
== END | disposition home or self-care (01) ==
LOC: RADMAMWWP 10:05
PROVIDERS: ATTEND Family Medicine
DX: Z12.31 Encounter for screening mammogram for malignant neoplasm of breast (principal)
CPT/HCPCS: 77063; 77067

== ENCOUNTER → 2020-01-07 | Outpatient (CLI) | payer MEDICARE ==
[2020-01-07 10:58] LABS: Basophils # (A) 0.1 k/uL (0-0.2); Basophils % (A) 1 %; Eosinophils # (A) 0.2 k/uL (0-0.7); Eosinophils % (A) 3 %; HCT 46.8 % (34.0-46.0); HGB 14.8 gm/dL (11.4-16.0); Lymphocytes % (A) 29 %; MCH 30.4 pg (25.0-35.0); MCHC 31.6 g/dL (31.0-37.0); MCV 96.2 fL (80.0-100.0); Mean Platelet Volume 8.4; Monocytes # (A) 0.5 k/uL (0-1.0); Monocytes % (A) 8 %; Neutrophils % (A) 57 %; Platelet Count 184 k/uL (150-450); RBC 4.87 m/uL (3.80-5.40); RDW 13.1 % (11.5-15.5)
[2020-01-07 11:23] LABS: Potassium 4.4 mmol/L (3.5-5.1)
== END | disposition home or self-care (01) ==
LOC: LABPAT 10:27
PROVIDERS: ATTEND Surgery
DX: Z01.818 Encounter for other preprocedural examination (principal); G45.8 Other transient cerebral ischemic attacks and related syndromes
CPT/HCPCS: 36415; 80051; 82565; 84520; 85025

== ENCOUNTER → 2020-01-12 | Day surgery (SDC) | payer MEDICARE ==
[2020-01-11 09:10] VITALS: BMI 36.5
[~2020-01-12] MED LIST changes: -ACETAMINOPHEN TAB 325 MG TAB PO PRN; +ALBUTEROL NEBULIZED 2.5 MG/3 ML INHALATION PRN; +ASPIRIN 325 MG TAB ONE; -ASPIRIN 325 MG TAB PO STA; -ASPIRIN 81 MG ONE; -ASPIRIN 81 MG PO SCH; +ATORVASTATIN 80 MG TAB PO SCH; -CLOPIDOGREL 75 MG TAB PO ONE; -CLOPIDOGREL 75 MG TAB PO SCH; +DOCUSATE 100 MG CAP PO PRN; +ERGOCALCIFEROL 50,000 UNIT CAP PO SCH; +FAMOTIDINE 20 MG TAB PO SCH; +FUROSEMIDE 20 MG TAB PO SCH; +HYDROmorphone 1 MG/ML 1 ML SYRINGE IVP ONE; +IPRATROPIUM 0.5 MG/2.5 ML NEBU INHALATION SCH; +LEVOTHYROXINE 100 MCG TAB PO SCH; +LISINOPRIL 10 MG TAB PO SCH; +MAG HYDROX/AL HYDROX/SIMETH 30 ML CUP PO PRN; +METOPROLOL TARTRATE 5 MG/5 ML VIAL IVP ONE; -MIDAZOLAM (PF) 2 MG/2 ML VIAL IVP ONE; +PROTAMINE SULFATE 10 MG/ML 5 ML VIAL IV ONE; +RIVAROXABAN 20 MG TAB PO SCH; -SODIUM CHLORIDE 0.9% 1,000 ML IV ONE; +SODIUM CHLORIDE 0.9% 1,000 ML IV SCH; -SODIUM CHLORIDE 0.9% 1,000 ML in EMPTY BAG 1 BAG IV ONE; +SYMBICORT 160-4.5 MCG INHALER INHALATION SCH; +TEMAZEPAM 15 MG CAP PO PRN; +hydrALAZINE HCL 20 MG/ML 1 ML VIAL IV ONE; -hydrALAZINE HCL 20 MG/ML 1 ML VIAL IVP STA
[2020-01-12 08:50] VITALS: RESP 18; TEMP 97.7
--- NOTE | 2020-01-12 11:02 | P.OP ---
Date of Procedure: 01/12/20 Preoperative Diagnosis: #1 left upper extremity subclavian steal syndrome #2 left upper extremity paresthesias #3 Left subclavian in-stent stenosis Postoperative Diagnosis: #1 Same #2 90% left subclavian artery in-stent stenosis Procedure(s) Performed: #1 arch aortogram via right femoral artery ultrasound guided access #2 selective left subclavian artery angiogram second order #3 percutaneous transluminal balloon angioplasty of the in-stent stenosis with 8 x 40 mm Coolidge balloon and 7 x 40 mm impact drug-eluting balloon #4 intravascular ultrasound of the aorta and left subclavian artery Anesthesia: local Surgeon: Garrett Pearson Estimated Blood Loss (ml): 5 Pathology: none sent Condition: stable Disposition: PACU Indications for Procedure: 69-year-old female with history of subclavian steal syndrome on the left with history of left subclavian artery stenting presented to the office secondary to large discrepancy in her upper extremity blood pressures as well as new onset of paresthesias numbness and pain involving her left hand. Patient states over the last several weeks she had built noticed some decreased strength in her hand. Due to her previous stenting and was likely in-stent stenosis which was noted on her recent carotid Doppler which demonstrated reversal of flow in the vertebral arteries. She presents today for aortogram and possible balloon angioplasty and stenting. Operative Findings: 90% stenosis of the proximal stent Description of Procedure: After written and informed consent was obtained the patient all risks benefits and competitions were described the patient was brought to the Master Fire Control Technician and laid in a supine position. The area of the groins were prepped and draped in usual sterile fashion. Utilizing ultrasound the right common femoral artery was visualized and shown to be patent without any significant calcification or narrowing. Using ultrasound the common femoral artery was accessed with a multipurpose needle. A 5-Ukrainian sheath was then placed utilizing Seldinger aida hnique. 035 Glidewire advantage was then taken up to the aortic arch followed by pigtail catheter. Arch aortogram was obtained demonstrating patent aorta with patent right brachiocephalic, common carotid and left common carotid arteries. The left subclavian artery demonstrated a 90% stenosis within the existing subclavian artery stent at the proximal aspect. 035 Glidewire advantage was then taken through the pigtail catheter and the catheter was removed. Patient was administered 3000 units of heparin and followed with ACTs. Angled Berenstein catheter was then utilized and the left subclavian artery was accessed. Selective angiogram was obtained demonstrating once again a 90% stenosis of the left subclavian artery in-stent. 035 Glidewire was then taken across the lesion followed by a 8 x 40 mm Coolidge balloon for balloon angioplasty. An 014 wire was then placed followed by an IVUS catheter. Utilizing IVUS the stent was visualized after the balloon angioplasty demonstrating improved intraluminal gain with some residual plaque noted at the proximal and distal aspects of the stent. There was approximately 20-30% residual stenosis noted. The catheter was then removed and the wire was exchanged for an 035 Glidewire and utilizing an impact 7 x 40 mm balloon balloon angioplasty was once again performed in the stent. Once completed patient had equal blood pressures on both arms which increased to 180s on the left from 94 preop. 035 Glidewire was then taken back and pigtail catheter was once again placed for and arch angiogram demonstrating complete resolution of the in-stent stenosis. All guidewires and catheters were then removed. Patient was administered protamine for reversal of the heparin for ACT less than 180 and sheath was then removed and pressure was held for hemostasis. Hemostasis was assured and the area was cleansed and dressings were placed. Patient tolerated procedure well, had a palpable radial pulse bilaterally and was sent to PACU for recovery. Plan - Discharge Summary Discharge Rx Participant: Yes New Discharge Prescriptions: No Action Rivaroxaban [Xarelto] 20 mg PO HS Budesonide-Formot 160-4.5 Mcg [Symbicort 160-4.5 Mcg Inhaler] 2 puff INHALATION RT-BID Ergocalciferol [Vitamin D2 (DRISDOL)] 50,000 unit PO DIRECTED Tiotropium [place] [Spiriva] 1 cap INHALATION BID Atorvastatin Calcium [Lipitor] 80 mg PO HS #30 tablet Lisinopril [Zestril] 30 mg PO DAILY Clopidogrel Bisulfate [Plavix] 75 mg PO HS Albuterol Sulfate [Ventolin HFA] 1 - 2 puff INHALATION RT-Q6H PRN PRN Reason: Shortness Of Breath Furosemide [Lasix] 20 mg PO DAILY Famotidine [Pepcid] 20 mg PO Q12HR Levothyroxine Sodium 250 mcg PO DAILY Discharge Medication List Budesonide-Formot 160-4.5 Mcg [Symbicort 160-4.5 Mcg Inhaler] 2 puff INHALATION RT-BID 11/13/15 [History] Ergocalciferol [Vitamin D2 (DRISDOL)] 50,000 unit PO DIRECTED 11/13/15 [History] Rivaroxaban [Xarelto] 20 mg PO HS 11/13/15 [History] Tiotropium [place] [Spiriva] 1 cap INHALATION BID 11/13/15 [History] Atorvastatin Calcium [Lipitor] 80 mg PO HS #30 tablet 09/22/18 [Rx] Clopidogrel Bisulfate [Plavix] 75 mg PO HS 04/22/19 [History] Lisinopril [Zestril] 30 mg PO DAILY 04/22/19 [History] Albuterol Sulfate [Ventolin HFA] 1 - 2 puff INHALATION RT-Q6H PRN 07/12/19 [History] Furosemide [Lasix] 20 mg PO DAILY 07/12/19 [History] Famotidine [Pepcid] 20 mg PO Q12HR 01/11/20 [History] Levothyroxine Sodium 250 mcg PO DAILY 01/11/20 [History] Follow up Appointment(s)/Referral(s): Garertt Pearson DO [STAFF PHYSICIAN] - 1 Week Discharge Disposition: HOME SELF-CARE
--- NOTE | 2020-01-12 11:51 | IR ---
EXAMINATION TYPE: IR area captain brachiocephalic DATE OF EXAM: 01/12/2020 COMPARISON: NONE HISTORY: Fluoroscopy time. Fluoroscopy was provided to the referring clinician.
[2020-01-12 17:36] VITALS: BP 156/74; PULSE 76
== END | disposition home or self-care (01) ==
LOC: CATHCVL 07:58
PROVIDERS: ATTEND Surgery
DX: T82.856A Stenosis of peripheral vascular stent, initial encounter (principal); G45.8 Other transient cerebral ischemic attacks and related syndromes; Z79.01 Long term (current) use of anticoagulants; Z79.02 Long term (current) use of antithrombotics/antiplatelets; Z79.51 Long term (current) use of inhaled steroids; Z79.899 Other long term (current) drug therapy; Z87.891 Personal history of nicotine dependence; Z81.8 Family history of other mental and behavioral disorders
CPT/HCPCS: 36215; 36221; 85347 ×2; 37252; 37246; 87635; C1894 ×2; C1725; C1769 ×4; C1753; C2623; J2720; J0360; J2001; J1644; J1170; Q9966

== ENCOUNTER 2020-10-13 09:36 | Day surgery (SDC) | payer MEDICARE ==
[2020-10-11 14:25] VITALS: BMI 36.3
[~2020-10-13 09:36] MED LIST changes: -ALBUTEROL NEBULIZED 2.5 MG/3 ML INHALATION PRN; -ASPIRIN 325 MG TAB ONE; -ATORVASTATIN 80 MG TAB PO SCH; -DOCUSATE 100 MG CAP PO PRN; -ERGOCALCIFEROL 50,000 UNIT CAP PO SCH; -FAMOTIDINE 20 MG TAB PO SCH; -FUROSEMIDE 20 MG TAB PO SCH; -HEPARIN SODIUM 1,000 UN/ML (10ML VL) IV ONE; -HYDROmorphone 1 MG/ML 1 ML SYRINGE IVP ONE; -IOPAMIDOL-250 100ML BTL INTRAARTER ONE; -IPRATROPIUM 0.5 MG/2.5 ML NEBU INHALATION SCH; +LACTATED RINGERS 1,000 ML IV SCH; -LEVOTHYROXINE 100 MCG TAB PO SCH; +LIDOCAINE 1% (10MG/ML) FOR IV START INTRADERMA PRN; -LIDOCAINE 1% INJ 10MG/ML (20 ML MDV) SQ ONE; -LISINOPRIL 10 MG TAB PO SCH; -MAG HYDROX/AL HYDROX/SIMETH 30 ML CUP PO PRN; -METOPROLOL TARTRATE 5 MG/5 ML VIAL IVP ONE; -PROTAMINE SULFATE 10 MG/ML 5 ML VIAL IV ONE; -RIVAROXABAN 20 MG TAB PO SCH; -SODIUM CHLORIDE 0.9% 1,000 ML IV SCH; -SYMBICORT 160-4.5 MCG INHALER INHALATION SCH; -TEMAZEPAM 15 MG CAP PO PRN; -hydrALAZINE HCL 20 MG/ML 1 ML VIAL IV ONE
[2020-10-13 10:22] VITALS: RESP 16; TEMP 96.6
[2020-10-13] MEDS ORDERED: PROPOFOL 10 MG/ML 20 ML VIAL IV ONE (11:30)
--- NOTE | 2020-10-13 11:30 | P.GSHP ---
History of Present Illness H&P Date: 10/13/20 CHIEF COMPLAINT: Colon screen HISTORY OF PRESENT ILLNESS: The patient is a 70-year-old female who presents for colon screen. Lower endoscopy was offered for further evaluation and management. PAST MEDICAL HISTORY: Please see list. PAST SURGICAL HISTORY: Please see list. MEDICATIONS: Please see list. ALLERGIES: Please see list. SOCIAL HISTORY: No illicit drug use FAMILY HISTORY: No reports of Crohn disease or ulcerative colitis. REVIEW OF ORGAN SYSTEMS: CONSTITUTIONAL: No reports of fevers or chills. PHYSICAL EXAM: VITAL SIGNS: Stable GENERAL: Well-developed pleasant in no acute distress. HEENT: No scleral icterus. Extraocular movements grossly intact. Moist buccal mucosa. NECK: Supple without lymphadenopathy. CHEST: Unlabored respirations. Equal bilateral excursions. CARDIOVASCULAR: Regular rate and rhythm. Distal 2+ pulses. ABDOMEN: Soft, nontender, nondistended. MUSCULOSKELETAL: No clubbing, cyanosis, or edema. ASSESSMENT: 1. Colon screen. PLAN: 1. Recommend proceeding with a lower endoscopy Past Medical History Past Medical History: Coronary Artery Disease (CAD), COPD, Deep Vein Thrombosis (DVT), Hyperlipidemia, Hypertension, Sleep Apnea/CPAP/BIPAP, Thyroid Disorder Additional Past Medical History / Comment(s): Hx left leg dvt, no CPAP use., started taking synthroid as a child. Hx. of being prone to blood clots. 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 Has a stent. 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 Right arm surgery. Stents left carotid. D&C's. Colonoscopy. Past Anesthesia/Blood Transfusion Reactions: Motion Sickness Smoking Status: Former smoker - Past Family History Father Family Medical History: No Reported History Additional Family Medical History / Comment(s): Father of suicide. Mother Additional Family Medical History / Comment(s): Mother with high sugar "insulin stroke" emergency without prior known history. HX POLYPS Medications and Allergies Home Medications Medication Instructions Recorded Confirmed Type Budesonide-Formot 160-4.5 Mcg 2 puff INHALATION RT-BID 11/13/15 10/13/20 History [Symbicort 160-4.5 Mcg Inhaler] Ergocalciferol [Vitamin D2 50,000 unit PO DIRECTED 11/13/15 10/13/20 History (DRISDOL)] Rivaroxaban [Xarelto] 20 mg PO HS 11/13/15 10/13/20 History Tiotropium [place] [Spiriva] 1 cap INHALATION BID 11/13/15 10/13/20 History Atorvastatin Calcium [Lipitor] 80 mg PO HS #30 tablet 09/22/18 10/13/20 Rx lisinopriL [Zestril] 30 mg PO DAILY 04/22/19 10/13/20 History Albuterol Sulfate [Ventolin HFA] 1 - 2 puff INHALATION RT-Q6H PRN 07/12/19 10/13/20 History Furosemide [Lasix] 20 mg PO DAILY 07/12/19 10/13/20 History Famotidine [Pepcid] 20 mg PO Q12HR 01/11/20 10/13/20 History Levothyroxine Sodium 250 mcg PO MOWEFR 01/11/20 10/13/20 History Levothyroxine Sodium 125 mcg PO SUTUTHSA 10/11/20 10/13/20 History Ticagrelor [Brilinta] 90 mg PO DAILY 10/11/20 10/13/20 History Allergies Allergy/AdvReac Type Severity Reaction Status Date / Time ciprofloxacin Allergy Swelling-from Verified 10/11/20 13:57 eye cream tobramycin Allergy Swelling Verified 10/11/20 13:57 from eye drops Surgical - Exam Vital Signs Temp Pulse Resp BP Pulse Ox 96.6 F L 83 16 157/67 97 10/13/20 10:16 10/13/20 10:16 10/13/20 10:16 10/13/20 10:16 10/13/20 10:16
[2020-10-13 12:22] VITALS: BP 108/64; PULSE 53
--- NOTE | 2020-10-13 12:38 | P.PCN ---
Date of Procedure: 10/13/20 Description of Procedure: PREOPERATIVE DIAGNOSIS: Colonoscopy screening POSTOPERATIVE DIAGNOSIS: Tubular adenoma hepatic flexure Sigmoid diverticulosis OPERATION: Colonoscopy to the ileocecal valve and appendiceal orifice, cecum Colonoscopy with hot snare polypectomy SURGEON: Catina Noel MD. ANESTHESIA: MAC. INDICATIONS: The patient is an 70-year-old female who presents for first colonoscopy. Benefits and risks were described and informed consent was obtained. DESCRIPTION OF PROCEDURE: The patient had undergone Suprep. She had been brought into the operating room and laid in the left lateral decubitus position. After adequate intravenous sedation, the rectum was examined with 2% lidocaine jelly. No external hemorrhoids were encountered. The rectal tone was within normal limits. No lesions were palpated in the rectal vault. An Olympus colonoscope was advanced until the cecum, ileocecal valve and appendiceal orifice were clearly viewed. The prep was excellent. The sigmoid colon was rather redundant requiring abdominal wall pressure to advance the scope. Sigmoid diverticulosis was encountered with mild stricture amount of sigmoid colon. Multiple colonic polyps were found and removed. No evidence of focal colitis was found. Retroflexion of the scope demonstrated grade 2 internal hemorrhoids without active bleeding or inflammation. The colon was desufflated. The patient had tolerated the procedure well. Withdrawal time was over 6 minutes. FINDINGS: Aronchick preparation quality scale 1 (1-5) Internal hemorrhoids, grade 1 No external hemorrhoids No arteriovenous malformations. Sigmoid diverticulosis with redundancy and mild stricture Removal of 1 polyp: - Snare polypectomy at hepatic flexure, 9 mm tubulovillous adenoma polyp. No focal colitis. RECOMMENDATIONS: Repeat colonoscopy in 3 years, 2023 Plan - Discharge Summary Discharge Rx Participant: Yes New Discharge Prescriptions: Continue Rivaroxaban [Xarelto] 20 mg PO HS Budesonide-Formot 160-4.5 Mcg [Symbicort 160-4.5 Mcg Inhaler] 2 puff INHALATION RT-BID Ergocalciferol [Vitamin D2 (DRISDOL)] 50,000 unit PO DIRECTED Tiotropium [place] [Spiriva] 1 cap INHALATION BID Atorvastatin Calcium [Lipitor] 80 mg PO HS #30 tablet lisinopriL [Zestril] 30 mg PO DAILY Albuterol Sulfate [Ventolin HFA] 1 - 2 puff INHALATION RT-Q6H PRN PRN Reason: Shortness Of Breath Furosemide [Lasix] 20 mg PO DAILY Famotidine [Pepcid] 20 mg PO Q12HR Levothyroxine Sodium 250 mcg PO MOWEFR Ticagrelor [Brilinta] 90 mg PO DAILY Levothyroxine Sodium 125 mcg PO SUTUTH Discharge Medication List Budesonide-Formot 160-4.5 Mcg [Symbicort 160-4.5 Mcg Inhaler] 2 puff INHALATION RT-BID 11/13/15 [History] Ergocalciferol [Vitamin D2 (DRISDOL)] 50,000 unit PO DIRECTED 11/13/15 [History] Rivaroxaban [Xarelto] 20 mg PO HS 11/13/15 [History] Tiotropium [place] [Spiriva] 1 cap INHALATION BID 11/13/15 [History] Atorvastatin Calcium [Lipitor] 80 mg PO HS #30 tablet 09/22/18 [Rx] lisinopriL [Zestril] 30 mg PO DAILY 04/22/19 [History] Albuterol Sulfate [Ventolin HFA] 1 - 2 puff INHALATION RT-Q6H PRN 07/12/19 [History] Furosemide [Lasix] 20 mg PO DAILY 07/12/19 [History] Famotidine [Pepcid] 20 mg PO Q12HR 01/11/20 [History] Levothyroxine Sodium 250 mcg PO MOWEFR 01/11/20 [History] Levothyroxine Sodium 125 mcg PO SUTUTHSA 10/11/20 [History] Ticagrelor [Brilinta] 90 mg PO DAILY 10/11/20 [History] Follow up Appointment(s)/Referral(s): Catina Noel MD [STAFF PHYSICIAN] - As Needed Patient Instructions/Handouts: Colorectal Polyps (DC), Diverticulosis Diet (GEN), Diverticulosis (DC) Activity/Diet/Wound Care/Special Instructions: Repeat colonoscopy in 3 years, 2023 Discharge Disposition: HOME SELF-CARE
--- NOTE | 2020-10-18 08:20 | CDI ---
Date: 10.18.20 CDS/Account Development Associate Name: Una Aguilar Phone: If any questions, call Arabella Love Industrial Registered Nurse at [phone] Patient Name: Sade Cobb Admit Date 10.13.20 Discharge Date: 10.13.20 ATTENTION: The [facility] Coding Staff appreciate your assistance in clarifying documentation. Please respond to the clarification below the line at the bottom and electronically sign. The [facility] Coding staff will review the response and follow-up if needed. Please note: Queries are made part of the Legal Health Record. If you have any questions, please contact the Industrial Registered Nurse. Dear Dr. Noel In order to code to the greatest specificity and for the greatest reimbursement I need the following information: In you description in the OP report you documented grade 2 internal hemorrhoids and in the findings you documented grade 1 internal hemorrhoids. Please clarify grade of hemorrhoids: __grade 1 __grade 2 Thank you for your kind consideration. Retroflexion of the scope demonstrated grade 1 internal hemorrhoids without active bleeding or inflammation. KM 10/19/2020 @0910 MTDD
== END 2020-10-13 13:08 | disposition home or self-care (01) ==
LOC: ORWHC2ENDO 09:36
PROVIDERS: ATTEND Surgery Plastic and Reconstructive Surgery
DX: Z12.11 Encounter for screening for malignant neoplasm of colon (principal); D12.3 Benign neoplasm of transverse colon; K57.30 Diverticulosis of large intestine without perforation or abscess without bleeding; Q43.8 Other specified congenital malformations of intestine; K56.699 Other intestinal obstruction unspecified as to partial versus complete obstruction; K64.0 First degree hemorrhoids; I25.10 Atherosclerotic heart disease of native coronary artery without angina pectoris; J44.9 Chronic obstructive pulmonary disease, unspecified; E78.5 Hyperlipidemia, unspecified; E07.9 Disorder of thyroid, unspecified; K08.409 Partial loss of teeth, unspecified cause, unspecified class; K08.89 Other specified disorders of teeth and supporting structures; I11.0 Hypertensive heart disease with heart failure; I50.9 Heart failure, unspecified; G47.33 Obstructive sleep apnea (adult) (pediatric); Z88.8 Allergy status to other drugs, medicaments and biological substances; Z86.718 Personal history of other venous thrombosis and embolism; Z95.828 Presence of other vascular implants and grafts; Z86.79 Personal history of other diseases of the circulatory system; Z98.890 Other specified postprocedural states; Z90.89 Acquired absence of other organs; Z87.828 Personal history of other (healed) physical injury and trauma; Z87.898 Personal history of other specified conditions; Z87.891 Personal history of nicotine dependence; Z79.51 Long term (current) use of inhaled steroids; Z79.01 Long term (current) use of anticoagulants; Z79.899 Other long term (current) drug therapy; Z79.890 Hormone replacement therapy; Z79.02 Long term (current) use of antithrombotics/antiplatelets; Z88.1 Allergy status to other antibiotic agents; Z81.8 Family history of other mental and behavioral disorders; Z82.3 Family history of stroke; Z83.71 Family history of colonic polyps
CPT/HCPCS: 88305; 45385; J2704

== ENCOUNTER → 2020-11-11 | Outpatient (CLI) | payer MEDICARE ==
--- NOTE | 2020-11-11 17:10 | BD ---
EXAMINATION TYPE: Axial Bone Density DATE OF EXAM: 11/11/2020 COMPARISON: NONE CLINICAL HISTORY: 70 YR OLD FEMALE....ICD-109 CODE: M85.80 DISORDER OF BONE Height: 66 Weight: 234 FRAX RISK QUESTIONS: Glucocorticoids (More than 3mos): YES (Ex: prednisone, prednisolone, methylprednisolone, dexamethasone, and hydrocortisone). History of Fracture in Adulthood: YES Secondary Osteoporosis: YES 3. Menopause before 45: YES Current Tobacco Use: YES, QUIT ONLY 2 YRS AGO RISK FACTORS HISTORY OF: HX OF LOWER JAW FX...X3 AN ADULT History of Wrist Fracture: RT AN ADULT Diet low in dairy products/other sources of calcium: YES Postmenopausal woman: YES AT AGE 36, NATURALLY Take estrogen and/or progesterone medications: FOR 2 YRS FOLLOWING DULCE AT 36 YRS OLD Lost more than 2 inches in height since high school: YES Hyperparathyroidism: NO Adrenal Insufficiency: NO MEDICATIONS: Prednisone or other steroids: YES, FOR COPD, FOR MANY YRS Thyroid Medications: YES FOR ABOUT 40 YRS, SYNTHROID Additional Medications: BP MEDS, REFLUX MEDS, STATIN FOR CHOLESTEROL, VIT D Additional History: HYPERTENSION, REFLUX AND CHOLESTEROL, ARTHRITIS EXAM MEASUREMENTS: Bone mineral densitometry was performed using the RIGID System. Bone mineral density as measured about the Lumbar spine is: ----- L1-L4(G/cm2): 1.097 T Score Values are as follows: ----- L1: -1.3 ----- L2: -2.0 ----- L3: 0.2 ----- L4: -0.2 ----- L1-L4: -0.7 Bone mineral density FIRST BONE DENSITY AT [facility] Bone mineral density about the R hip (g/cm2): 0.837 Bone mineral density about the L hip (g/cm2): 0.803 T Score values are as follows: -----R Neck: -0.4 -----L Neck: -0.4 -----R Total: -1.4 -----L Total: -1.6 Bone mineral density FIRST DEXA STUDY AT [facility] FRAX%S: THERE IS A 17.1% CHANCE FOR A MAJOR OSTEOPOROTIC FX AND A 1.9% FOR HIP....PROBABILITY FOR FX IN 10 YRS TIME IMPRESSION: Osteopenia (T Score between -2.5 and -1). There is slightly increased risk of fracture and the patient may be considered for treatment. Re-Screen 2-5 years. NOTE: T-SCORE=SD OF THE YOUNG ADULT MEAN.
--- NOTE | 2020-11-15 08:49 | MM ---
Reason for exam: screening (asymptomatic). Last mammogram was performed 1 year and 1 month ago. History: Patient is postmenopausal. Took hormonal contraceptives for 12 years. Took estrogen for 3 years. Physical Findings: A clinical breast exam by your physician is recommended on an annual basis and results should be correlated with mammographic findings. MG 3D Screening Mammo W/Cad Bilateral CC and MLO view(s) were taken. Prior study comparison: October 13, 2019, bilateral MG 3d screening mammo w/cad. July 14, 2018, bilateral MG 3d screening mammo w/cad. There are scattered fibroglandular densities. Fat density lesions redemonstrated centrally on the left suggesting sequela of injury and early oil cyst formation. No significant changes when compared with prior studies. ASSESSMENT: Benign, BI-RAD 2 RECOMMENDATION: Routine screening mammogram of both breasts in 1 year.
== END | disposition home or self-care (01) ==
LOC: RADBDWWP 13:09
PROVIDERS: ATTEND Family Medicine
DX: Z12.31 Encounter for screening mammogram for malignant neoplasm of breast (principal); M85.80 Other specified disorders of bone density and structure, unspecified site
CPT/HCPCS: 77063; 77067; 77080

== ENCOUNTER → 2021-12-25 | Outpatient (CLI) | payer MEDICARE ==
--- NOTE | 2021-12-27 11:59 | MM ---
Reason for exam: screening (asymptomatic). Last mammogram was performed 1 year and 1 month ago. History: Patient is postmenopausal. Took hormonal contraceptives for 12 years. Took estrogen for 3 years. Physical Findings: A clinical breast exam by your physician is recommended on an annual basis and results should be correlated with mammographic findings. MG 3D Screening Mammo W/Cad Bilateral CC and MLO view(s) were taken. Prior study comparison: November 11, 2020, bilateral MG 3d screening mammo w/cad. October 13, 2019, bilateral MG 3d screening mammo w/cad. There are scattered fibroglandular densities. Benign areas of fat necrosis on the left. Some developing dystrophic calcifications involving the more inferior area. No significant changes when compared with prior studies. ASSESSMENT: Benign, BI-RAD 2 RECOMMENDATION: Routine screening mammogram of both breasts in 1 year.
== END | disposition home or self-care (01) ==
LOC: RADMAMWWP 15:38
PROVIDERS: ATTEND Family Medicine
DX: Z12.31 Encounter for screening mammogram for malignant neoplasm of breast (principal); Z78.0 Asymptomatic menopausal state
CPT/HCPCS: 77063; 77067

== ENCOUNTER 2022-06-10 19:13 | Emergency (ER) | payer MEDICARE ==
[2022-06-10] MEDS ORDERED: ORPHENADRINE 30 MG/ML 2 ML VIAL IM STA (19:26)
[2022-06-10] MEDS ORDERED: LIDOCAINE 5% PATCH TOPICAL SCH (19:30)
--- NOTE | 2022-06-10 19:34 | ED ---
Neck Injury/Pain HPI - General Chief Complaint: Neck Pain/Injury Stated Complaint: Pinched nerve in neck Time Seen by Provider: 06/10/22 19:17 Source: patient, RN notes reviewed, old records reviewed Mode of arrival: ambulatory Limitations: no limitations - History of Present Illness Initial Comments: This is a well-appearing 72-year-old female who presents to the emergency room with complaints of right-sided neck pain when she woke up Saturday morning. Patient states she has tried heat with some relief but continues to be tight. Denies any injury. Denies any fevers, no chest pain or difficulty in breathing. She does have a history of subclavian steal syndrome and 2020 on the left with stent and is currently taking Brilinta and Xarelto. History of DVT, COPD, coronary artery disease and hypertension MD Complaint: neck pain -: days(s) (5) Place: home Radiation: right shoulder Severity scale (1-10): 8 Quality: sharp, other (tight) Improves With: immobilization, heat therapy Worsens With: movement of neck, other (palpation) Context: other (woke up with pain) Associated Symptoms: none Treatments Prior to Arrival: other (heat) - Related Data Home Medications Medication Instructions Recorded Confirmed Budesonide-Formot 160-4.5 Mcg 2 puff INHALATION RT-BID 11/13/15 10/13/20 [Symbicort 160-4.5 Mcg Inhaler] Ergocalciferol [Vitamin D2 50,000 unit PO DIRECTED 11/13/15 10/13/20 (DRISDOL)] Rivaroxaban [Xarelto] 20 mg PO HS 11/13/15 10/13/20 Tiotropium [place] [Spiriva] 1 cap INHALATION BID 11/13/15 10/13/20 lisinopriL [Zestril] 30 mg PO DAILY 04/22/19 10/13/20 Albuterol Sulfate [Ventolin HFA] 1 - 2 puff INHALATION RT-Q6H PRN 07/12/19 10/13/20 Furosemide [Lasix] 20 mg PO DAILY 07/12/19 10/13/20 Famotidine [Pepcid] 20 mg PO Q12HR 01/11/20 10/13/20 Levothyroxine Sodium 250 mcg PO MOWEFR 01/11/20 10/13/20 Levothyroxine Sodium 125 mcg PO SUTUTHSA 10/11/20 10/13/20 Ticagrelor [Brilinta] 90 mg PO DAILY 10/11/20 10/13/20 Previous Rx's Medication Instructions Recorded Atorvastatin Calcium [Lipitor] 80 mg PO HS #30 tablet 09/22/18 Cyclobenzaprine [Flexeril] 5 mg PO TID PRN #15 tablet 06/10/22 Lidocaine 5% Patch [Lidoderm] 1 patch TOPICAL DAILY 14 Days #14 06/10/22 patch Allergies Allergy/AdvReac Type Severity Reaction Status Date / Time ciprofloxacin Allergy Swelling-from Verified 06/10/22 19:16 eye cream tobramycin Allergy Swelling Verified 06/10/22 19:16 from eye drops Review of Systems ROS Statement: Those systems with pertinent positive or pertinent negative responses have been documented in the HPI. ROS Other: All systems not noted in ROS Statement are negative. Past Medical History Past Medical History: Coronary Artery Disease (CAD), COPD, Deep Vein Thrombosis (DVT), Hyperlipidemia, Hypertension, Sleep Apnea/CPAP/BIPAP, Thyroid Disorder Additional Past Medical History / Comment(s): Hx left leg dvt, no CPAP use., started taking synthroid as a child. Hx. of being prone to blood clots. States L carotid blockage in 2013. Has a stent. 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 Right arm surgery. Stents left carotid. D&C's. Colonoscopy. Past Anesthesia/Blood Transfusion Reactions: Motion Sickness Past Psychological History: No Psychological Hx Reported Smoking Status: Former smoker Past Alcohol Use History: Rare Past Drug Use History: None Reported - Past Family History Father Family Medical History: No Reported History Additional Family Medical History / Comment(s): Father of suicide. Mother Additional Family Medical History / Comment(s): Mother with high sugar "insulin stroke" emergency without prior known history. HX POLYPS General Exam Limitations: no limitations General appearance: alert, in no apparent distress Head exam: Present: atraumatic, normocephalic Neck exam: Present: normal inspection, tenderness (right lateral ), full ROM. Absent: meningismus, lymphadenopathy, thyromegaly Respiratory exam: Present: wheezes (expiratory). Absent: respiratory distress, accessory muscle use Cardiovascular Exam: Present: tachycardia GI/Abdominal exam: Present: soft Extremities exam: Present: full ROM, normal capillary refill, other (Bilateral radial pulses equal 3+). Absent: tenderness Back exam: Present: normal inspection, full ROM. Absent: tenderness, CVA ten derness (R), CVA tenderness (L), rash noted Neurological exam: Present: alert, oriented X3 Psychiatric exam: Present: normal affect, normal mood Skin exam: Present: warm, dry, normal color. Absent: cyanosis, diaphoretic, petechiae, pallor Course Vital Signs 06/10/22 19:14 Temperature 98 F Pulse Rate 102 H Respiratory 20 Rate Blood Pressure 142/79 O2 Sat by Pulse 97 Oximetry Medical Decision Making - Medical Decision Making Patient presents with right-sided neck pain upon awakening Saturday. She describes the pain as a tightness with difficulty turning her head to the right. She denies any dizziness, headaches, shortness of breath or chest pain. She denies any injury. She does have a history of subclavian steal syndrome in 2019 that was asymptomatic, found during preop for colonoscopy. Patient is taking Brilinta and Xarelto. No carotid bruits heard. Bilateral radial pulses present and equal at 3+. Pain is reproducible with one finger trapezius muscle. Vital signs are stable. Patient was given a shot of Norflex and Lidoderm patch and states that she is feeling improvement. Symptoms are consistent with a muscle strain. She was instructed to continue applying heat, use [id number] pain relief creams like capsaicin, icy hot or BenGay. Instructed to follow-up with her primary care doctor this week and return to the emergency room with any new or concerning symptoms. Strict return parameters were discussed any chest pain, numbness down the arm, difficulty in breathing. She is agreeable to this plan of care. Case discussed with Dr. Jacobo. Disposition Clinical Impression: Strain of neck muscle Disposition: HOME SELF-CARE Condition: Good Instructions (If sedation given, give patient instructions): Neck Pain (ED) Additional Instructions: Take the Flexeril as a muscle relaxer as prescribed. You can also use the Lidoderm patches for pain relief or topical medications like Jose Antonio cavanaugh, icy hot or salon pas. Return to the emergency room with any new or concerning symptoms including numbness down the arm, chest pain or difficulty in breathing. Follow-up with your primary care doctor this week. Prescriptions: Cyclobenzaprine [Flexeril] 5 mg PO TID PRN #15 tablet PRN Reason: Muscle Spasm Lidocaine 5% Patch [Lidoderm] 1 patch TOPICAL DAILY 14 Days #14 patch Is patient prescribed a controlled substance at d/c from ED?: No Referrals: Yuriy Toscano DO [Primary Care Provider] - 1-2 days Time of Disposition: 20:26
[2022-06-10 20:46] VITALS: BP 158/88; PULSE 89; RESP 18; TEMP 98.3
== END 2022-06-10 20:45 | disposition home or self-care (01) ==
LOC: EC 19:13
DX: S16.1XXA Strain of muscle, fascia and tendon at neck level, initial encounter (principal); I25.10 Atherosclerotic heart disease of native coronary artery without angina pectoris; J44.9 Chronic obstructive pulmonary disease, unspecified; Z86.718 Personal history of other venous thrombosis and embolism; E78.5 Hyperlipidemia, unspecified; I10 Essential (primary) hypertension; E07.9 Disorder of thyroid, unspecified; Z79.890 Hormone replacement therapy; Z79.899 Other long term (current) drug therapy; Z88.1 Allergy status to other antibiotic agents; Z79.01 Long term (current) use of anticoagulants; Z79.51 Long term (current) use of inhaled steroids; Z87.891 Personal history of nicotine dependence; X58.XXXA Exposure to other specified factors, initial encounter; Y92.009 Unspecified place in unspecified non-institutional (private) residence as the place of occurrence of the external cause
CPT/HCPCS: 99283; 96372; J2360

== ENCOUNTER 2022-06-11 05:59 | Emergency (ER) | payer MEDICARE ==
[2022-06-11 06:05] VITALS: BP 156/72; PULSE 91; RESP 18; TEMP 97.8
[2022-06-11] MEDS ORDERED: DEXAMETHASONE SOD PHOSPHATE 10 MG/ML 1 ML VIAL IVP STA (06:21)
[2022-06-11] MEDS ORDERED: ORPHENADRINE 30 MG/ML 2 ML VIAL IVP STA (06:21)
[2022-06-11] MEDS ORDERED: KETOROLAC 15 MG/ML 1 ML VIAL IVP STA (06:21)
--- NOTE | 2022-06-11 06:34 | ED ---
Neck Injury/Pain HPI - General Chief Complaint: Neck Pain/Injury Stated Complaint: Painful Muscle spasms Time Seen by Provider: 06/11/22 06:16 Source: patient, RN notes reviewed Mode of arrival: ambulatory Limitations: no limitations - History of Present Illness Initial Comments: 72-year-old female presents emergency Department with chief complaint of neck pain. Patient states his started Saturday has progressively worsened. Patient states she seen last night was given Norflex and lidocaine patch which initially helped seems to wear off. Patient states she has not picked up her prescriptions. Patient states she has pain primarily right side of neck worse with movement better rest. Patient states symptoms of her shoulders denies any weakness of upper extremities no headache no blurred vision denies any dizziness chest pain palpitation shortness of breath - Related Data Home Medications Medication Instructions Recorded Confirmed Budesonide-Formot 160-4.5 Mcg 2 puff INHALATION RT-BID 11/13/15 10/13/20 [Symbicort 160-4.5 Mcg Inhaler] Ergocalciferol [Vitamin D2 50,000 unit PO DIRECTED 11/13/15 10/13/20 (DRISDOL)] Rivaroxaban [Xarelto] 20 mg PO HS 11/13/15 10/13/20 Tiotropium [place] [Spiriva] 1 cap INHALATION BID 11/13/15 10/13/20 lisinopriL [Zestril] 30 mg PO DAILY 04/22/19 10/13/20 Albuterol Sulfate [Ventolin HFA] 1 - 2 puff INHALATION RT-Q6H PRN 07/12/19 10/13/20 Furosemide [Lasix] 20 mg PO DAILY 07/12/19 10/13/20 Famotidine [Pepcid] 20 mg PO Q12HR 01/11/20 10/13/20 Levothyroxine Sodium 250 mcg PO MOWEFR 01/11/20 10/13/20 Levothyroxine Sodium 125 mcg PO SUTUTHSA 10/11/20 10/13/20 Ticagrelor [Brilinta] 90 mg PO DAILY 10/11/20 10/13/20 Previous Rx's Medication Instructions Recorded Atorvastatin Calcium [Lipitor] 80 mg PO HS #30 tablet 09/22/18 Cyclobenzaprine [Flexeril] 5 mg PO TID PRN #15 tablet 06/10/22 Lidocaine 5% Patch [Lidoderm] 1 patch TOPICAL DAILY 14 Days #14 06/10/22 patch Allergies Allergy/AdvReac Type Severity Reaction Status Date / Time ciprofloxacin Allergy Swelling-from Verified 06/11/22 06:05 eye cream tobramycin Allergy Swelling Verified 06/11/22 06:05 from eye drops Review of Systems ROS Statement: Those systems with pertinent positive or pertinent negative responses have been documented in the HPI. ROS Other: All systems not noted in ROS Statement are negative. Past Medical History Past Medical History: Coronary Artery Disease (CAD), COPD, Deep Vein Thrombosis (DVT), Hyperlipidemia, Hypertension, Sleep Apnea/CPAP/BIPAP, Thyroid Disorder Additional Past Medical History / Comment(s): Hx left leg dvt, no CPAP use., started taking synthroid as a child. Hx. of being prone to blood clots. States L carotid blockage in 2013. Has a stent. 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 Right arm surgery. Stents left carotid. D&C's. Colonoscopy. Past Anesthesia/Blood Transfusion Reactions: Motion Sickness Past Psychological History: No Psychological Hx Reported Smoking Status: Former smoker Past Alcohol Use History: Rare Past Drug Use History: None Reported - Past Family History Father Family Medical History: No Reported History Additional Family Medical History / Comment(s): Father of suicide. Mother Additional Family Medical History / Comment(s): Mother with high sugar "insulin stroke" emergency without prior known history. HX POLYPS General Exam Limitations: no limitations General appearance: alert, in no apparent distress Head exam: Present: atraumatic, normocephalic, normal inspection Eye exam: Present: normal appearance, PERRL, EOMI. Absent: scleral icterus, conjunctival injection, periorbital swelling ENT exam: Present: normal exam, normal oropharynx, mucous membranes moist Neck exam: Present: tenderness, full ROM (pain with ROM). Absent: normal inspection, meningismus, lymphadenopathy Respiratory exam: Present: normal lung sounds bilaterally. Absent: respiratory distress, wheezes, rales, rhonchi, stridor Cardiovascular Exam: Present: regular rate, normal rhythm, normal heart sounds. Absent: systolic murmur, diastolic murmur, rubs, gallop, clicks Extremities exam: Present: normal inspection, full ROM, normal capillary refill. Absent: tenderness, pedal edema, joint swelling, calf tenderness Back exam: Present: full ROM. Absent: tenderness, paraspinal tenderness, vertebral tenderness Neurological exam: Present: alert, oriented X3, CN II-XII intact, reflexes normal. Absent: motor sensory deficit Course Vital Signs 06/11/22 06:03 Temperature 97.8 F Pulse Rate 91 Respiratory 18 Rate Blood Pressure 156/72 O2 Sat by Pulse 98 Oximetry Medical Decision Making - Medical Decision Making 72-year-old female presents emergency from for neck pain. Patient did CT which shows degenerative change, stenosis. She has no focal weakness no upper extremity symptoms. She was given muscle relaxer, has improved. Patient will be discharged advised supervisor picking crew her prescription for medication return parameters were discussed. Disposition Clinical Impression: Cervical stenosis of spine, Cervical paraspinal muscle spasm Disposition: HOME SELF-CARE Condition: Stable Instructions (If sedation given, give patient instructions): Muscle Spasm (ED) Additional Instructions: Please return to the Emergency Department if symptoms worsen or any other concerns. Is patient prescribed a controlled substance at d/c from ED?: No Referrals: Yuriy Toscano DO [Primary Care Provider] - 1-2 days Time of Disposition: 08:01
--- NOTE | 2022-06-11 07:50 | CT ---
EXAMINATION TYPE: CT cervical spine wo con DATE OF EXAM: 06/11/2022 COMPARISON: None HISTORY: 72-year-old female Painful muscle spasms TECHNIQUE: Contiguous axial scanning of the cervical spine without IV contrast. Coronal and sagittal reconstructions performed. CT DLP: 436.8 mGycm Automated exposure control for dose reduction was used. FINDINGS: Proximal left subclavian artery vascular stent is noted. No craniocervical junction abnormality, predental space widening, or prevertebral soft tissue swellin g. Alignment is maintained. Mild to moderate degenerative disc disease throughout with disc osteophyte c omplexes contributing to variable mild spinal canal stenosis throughout. Facet and uncovertebral joint adenopathy especially mid to lower lumbar spine. No acute fracture of the cervical spine. Changes result in variable mild neuroforaminal stenoses thro ughout, more moderate on the right at C4-C5 and on both sides at C5-C6 and on the right at C6-C7. IMPRESSION: MODERATE SPONDYLOTIC CHANGE MID TO LOWER CERVICAL SPINE. DISC OSTEOPHYTE COMPLEXES AT MULTIPLE LEVELS CONTRIBUTE TO VARIABLE MILD SPINAL CANAL STENOSES. CHANGES ALSO RESULT IN VARIABLE MILD TO MODERATE NEUROFORAMINAL STENOSES THROUGHOUT.
[2022-06-11] MEDS ORDERED: ACET/COD 300 MG/30 MG STARTER PACK 6 TAB BTL PO STA (08:01)
== END 2022-06-11 08:05 | disposition home or self-care (01) ==
LOC: EC 05:59
DX: M48.02 Spinal stenosis, cervical region (principal); M62.838 Other muscle spasm; I10 Essential (primary) hypertension; J44.1 Chronic obstructive pulmonary disease with (acute) exacerbation; I25.10 Atherosclerotic heart disease of native coronary artery without angina pectoris; E07.89 Other specified disorders of thyroid; E78.5 Hyperlipidemia, unspecified; Z87.891 Personal history of nicotine dependence; Z79.890 Hormone replacement therapy; Z79.51 Long term (current) use of inhaled steroids; Z79.899 Other long term (current) drug therapy; Z99.89 Dependence on other enabling machines and devices; Z88.1 Allergy status to other antibiotic agents
CPT/HCPCS: 72125; 96374; 96375; 99284; J1100; J2360; J1885

== ENCOUNTER → 2023-01-02 | Outpatient (CLI) | payer MEDICARE ==
--- NOTE | 2023-01-02 16:04 | MM ---
Reason for Exam: Screening (asymptomatic). Last screening mammogram was performed 12 month(s) ago. Patient History: Menarche at age 13. First Full-Term at age 19. Postmenopausal. Patient has history of breast feeding. Patient used Estrogen for 3 years. Patient used Hormonal Contraceptives for 12 years. Risk Values: [place] 5 year model risk: 1.4%. NCI Lifetime model risk: 4.0%. Prior Study Comparison: 10/13/2019 Bilateral Screening Mammogram, [facility]. 11/11/2020 Bilateral Screening Mammogram, [facility]. 12/25/2021 Bilateral Screening Mammogram, [facility]. Tissue Density: There are scattered fibroglandular densities. Findings: Analyzed By CAD. There is no suspicious group of microcalcifications or new suspicious mass in either breast. Benign areas of fat necrosis in the left breast. Stable benign calcifications within the left breast. Overall Assessment: Benign, BI-RAD 2 Management: Screening Mammogram of both breasts in 1 year. A clinical breast exam by your physician is recommended on an annual basis and results should be correlated with mammographic findings. Electronically signed and approved by: Tra Guillaume D.O.
== END | disposition home or self-care (01) ==
LOC: RADMAMWWP 13:13
PROVIDERS: ATTEND Family Medicine
DX: Z12.31 Encounter for screening mammogram for malignant neoplasm of breast (principal); Z78.0 Asymptomatic menopausal state
CPT/HCPCS: 77063; 77067

== ENCOUNTER 2023-09-21 07:57 | Emergency (ER) | payer MEDICARE ==
--- NOTE | 2023-09-21 08:26 | ED ---
General Adult HPI - General Chief complaint: Back Pain/Injury Stated complaint: middle back pain Time Seen by Provider: 09/21/23 08:20 Source: patient, RN notes reviewed Mode of arrival: ambulatory Limitations: no limitations - History of Present Illness Initial comments: 73-year-old female with a past medical history of hyperlipidemia, hypertension, CAD, COPD, blood clot, CKD 3 presents to the emergency room for low back pain 3 days. Patient states she has right paraspinal low back pain that feels like a muscle spasm. Patient states she can't walk standing up straight and has to hunch over. Movement exacerbates the pain. Resting improves the pain. Patient denies any weakness of her legs. Denies any numbness or tingling in her legs. Denies bladder or bowel changes, fevers, saddle anesthesia. Denies pain radiating to the abdomen. Patient has no other complaints at this time including shortness of breath, chest pain, abdominal pain, nausea or vomiting, headache, or visual changes. Verbally signed by Caesar Guy PAC 09/21/22 [id number] - Related Data Home Medications Medication Instructions Recorded Confirmed Budesonide-Formot 160-4.5 Mcg 2 puff INHALATION RT-BID 11/13/15 10/13/20 [Symbicort 160-4.5 Mcg Inhaler] Ergocalciferol [Vitamin D2 50,000 unit PO DIRECTED 11/13/15 10/13/20 (DRISDOL)] Rivaroxaban [Xarelto] 20 mg PO HS 11/13/15 10/13/20 Tiotropium [place] [Spiriva] 1 cap INHALATION BID 11/13/15 10/13/20 lisinopriL [Zestril] 30 mg PO DAILY 04/22/19 10/13/20 Albuterol Sulfate [Ventolin HFA] 1 - 2 puff INHALATION RT-Q6H PRN 07/12/19 10/13/20 Furosemide [Lasix] 20 mg PO DAILY 07/12/19 10/13/20 Famotidine [Pepcid] 20 mg PO Q12HR 01/11/20 10/13/20 Levothyroxine Sodium 250 mcg PO MOWEFR 01/11/20 10/13/20 Levothyroxine Sodium 125 mcg PO SUTUTHSA 10/11/20 10/13/20 Ticagrelor [Brilinta] 90 mg PO DAILY 10/11/20 10/13/20 Previous Rx's Medication Instructions Recorded Atorvastatin Calcium [Lipitor] 80 mg PO HS #30 tablet 09/22/18 Cyclobenzaprine [Flexeril] 5 mg PO TID PRN #15 tablet 06/10/22 Lidocaine 5% Patch [Lidoderm] 1 patch TOPICAL DAILY 14 Days #14 06/10/22 patch Allergies Allergy/AdvReac Type Severity Reaction Status Date / Time ciprofloxacin Allergy Swelling-from Verified 09/21/23 08:01 eye cream tobramycin Allergy Swelling Verified 09/21/23 08:01 from eye drops Review of Systems ROS Statement: Those systems with pertinent positive or pertinent negative responses have been documented in the HPI. ROS Other: All systems not noted in ROS Statement are negative. Past Medical History Past Medical History: Coronary Artery Disease (CAD), COPD, Deep Vein Thrombosis (DVT), Hyperlipidemia, Hypertension, Sleep Apnea/CPAP/BIPAP, Thyroid Disorder Additional Past Medical History / Comment(s): Hx left leg dvt, no CPAP use., started taking synthroid as a child. Hx. of being prone to blood clots. 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 Has a stent. Stage 3 kidney failure. 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 Right arm surgery. Stents left ca rotid. D&C's. Colonoscopy. Past Anesthesia/Blood Transfusion Reactions: Motion Sickness Past Psychological History: No Psychological Hx Reported Smoking Status: Former smoker Past Alcohol Use History: Rare Past Drug Use History: None Reported - Past Family History Father Family Medical History: No Reported History Additional Family Medical History / Comment(s): Father of suicide. Mother Additional Family Medical History / Comment(s): Mother with high sugar "insulin stroke" emergency without prior known history. HX POLYPS General Exam Limitations: no limitations General appearance: alert, in no apparent distress Head exam: Present: atraumatic Eye exam: Present: normal appearance, PERRL, EOMI. Absent: scleral icterus, conjunctival injection ENT exam: Present: normal exam, mucous membranes moist Neck exam: Present: normal inspection, full ROM. Absent: tenderness Respiratory exam: Present: normal lung sounds bilaterally. Absent: respiratory distress, wheezes Cardiovascular Exam: Present: regular rate, normal rhythm, normal heart sounds GI/Abdominal exam: Present: soft, normal bowel sounds. Absent: distended, tenderness Back exam: Present: paraspinal tenderness (right lumbar paraspinal tenderness), vertebral tenderness (minimal lumbar tenderness). Absent: CVA tenderness (R), CVA tenderness (L) Neurological exam: Present: alert Course Vital Signs 09/21/23 09/21/23 09/21/23 07:59 11:30 12:34 Temperature 98 F 98.3 F 98.2 F Pulse Rate 70 79 75 Respiratory 20 18 18 Rate Blood Pressure 170/72 166/82 150/89 O2 Sat by Pulse 99 98 99 Oximetry Medical Decision Making - Medical Decision Making 73 year old female presents for back pain exacerbated by movement. Reproducible. Improved with pain medication. Stable for discharge home. Disposition Clinical Impression: Mechanical back pain Disposition: HOME SELF-CARE Condition: Good Instructions (If sedation given, give patient instructions): Acute Low Back Pain (ED) Additional Instructions: Please take medication as needed. Please follow-up with your doctor on Saturday. Is patient prescribed a controlled substance at d/c from ED?: No Referrals: Yuriy Toscano DO [Primary Care Provider] - 1-2 days Time of Disposition: 12:21
--- NOTE | 2023-09-21 08:47 | XR ---
EXAMINATION TYPE: XR lumbar spine 2 or 3V DATE OF EXAM: 09/21/2023 Comparison: None Clinical History: 73-year-old female with low back pain for 3 days Findings: There is a suggestion within the lower thoracic spine. Scattered moderate degenerative disc disease t hroughout the lumbar spine. Facet arthropathy especially mid to lower lumbar spine. Atherosclerotic c alcifications throughout. Transitional lumbosacral segment denoted as a sacralized L5. Degenerative g rade 1 retrolisthesis L1-L2 and L2-L3. Vertebral body heights are preserved. Slight levoconvex scolio tic curvature at the thoracolumbar junction. A couple of tubular densities project at the left parame bryan mid abdomen and can be correlated clinically. Impression: 1. Transitional lumbosacral segment denoted as a sacralized L5. 2. DISH in the lower thoracic spine. Moderate degenerative disc disease throughout the lumbar spine. 3. Facet arthropathy especially mid to lower lumbar spine. Degenerative grade 1 retrolisthesis L1-L2 and L2-L3. 4. No vertebral compression collapse.
[2023-09-21] MEDS: MORPHINE SULFATE 4 MG/ML SYRINGE IM STA (10:56)
[2023-09-21] MEDS: LIDOCAINE 4% PATCH TOPICAL STA (10:57)
[2023-09-21 12:08] VITALS: RESP 18
[2023-09-21] MEDS: ACET/COD 300 MG/30 MG STARTER PACK 6 TAB BTL PO STA (12:30)
[2023-09-21 12:52] VITALS: BP 150/89; PULSE 75; TEMP 98.2
== END 2023-09-21 12:35 | disposition home or self-care (01) ==
LOC: EC 07:57
DX: M43.16 Spondylolisthesis, lumbar region (principal); M47.816 Spondylosis without myelopathy or radiculopathy, lumbar region; M51.36 Other intervertebral disc degeneration, lumbar region; I12.9 Hypertensive chronic kidney disease with stage 1 through stage 4 chronic kidney disease, or unspecified chronic kidney disease; N18.30 Chronic kidney disease, stage 3 unspecified; I25.10 Atherosclerotic heart disease of native coronary artery without angina pectoris; J44.9 Chronic obstructive pulmonary disease, unspecified; G47.30 Sleep apnea, unspecified; E07.9 Disorder of thyroid, unspecified; Z79.890 Hormone replacement therapy; Z79.899 Other long term (current) drug therapy; Z88.1 Allergy status to other antibiotic agents; Z88.8 Allergy status to other drugs, medicaments and biological substances; Z87.891 Personal history of nicotine dependence; Z79.51 Long term (current) use of inhaled steroids; Z79.02 Long term (current) use of antithrombotics/antiplatelets
CPT/HCPCS: 72100; 99283; 96372; J2270

== ENCOUNTER 2024-06-11 09:20 | Day surgery (SDC) | payer MEDICARE ==
[2024-06-10 08:57] VITALS: BMI 37.4
--- NOTE | 2024-06-11 08:22 | P.GSHP ---
History of Present Illness H&P Date: 06/11/24 CHIEF COMPLAINT: Colon screen HISTORY OF PRESENT ILLNESS: The patient is a 74-year-old female who presents for colon screen. Lower endoscopy was offered for further evaluation and management. PAST MEDICAL HISTORY: Please see list. PAST SURGICAL HISTORY: Please see list. MEDICATIONS: Please see list. ALLERGIES: Please see list. SOCIAL HISTORY: No illicit drug use FAMILY HISTORY: No reports of Crohn disease or ulcerative colitis. REVIEW OF ORGAN SYSTEMS: CONSTITUTIONAL: No reports of fevers or chills. PHYSICAL EXAM: VITAL SIGNS: Stable GENERAL: Well-developed pleasant in no acute distress. HEENT: No scleral icterus. Extraocular movements grossly intact. Moist buccal mucosa. NECK: Supple without lymphadenopathy. CHEST: Unlabored respirations. Equal bilateral excursions. CARDIOVASCULAR: Regular rate and rhythm. Distal 2+ pulses. ABDOMEN: Soft, nontender, nondistended. MUSCULOSKELETAL: No clubbing, cyanosis, or edema. ASSESSMENT: 1. Colon screen. PLAN: 1. Recommend proceeding with a lower endoscopy Past Medical History Past Medical History: Coronary Artery Disease (CAD), COPD, Deep Vein Thrombosis (DVT), Hyperlipidemia, Hypertension, Sleep Apnea/CPAP/BIPAP, Thyroid Disorder Additional Past Medical History / Comment(s): Hx left leg dvt, no CPAP use., started taking synthroid as a child. Hx. of being prone to blood clots. 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 Has a stent. Stage 3 kidney failure. 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 Right arm surgery. Stents left carotid. D&C's. Colonoscopy. States has 2 stents. Past Anesthesia/Blood Transfusion Reactions: Motion Sickness Smoking Status: Former smoker - Past Family History Father Family Medical History: No Reported History Additional Family Medical History / Comment(s): Father of suicide. Mother Additional Family Medical History / Comment(s): Mother with high sugar "insulin stroke" emergency without prior known history. HX POLYPS Medications and Allergies Home Medications Medication Instructions Recorded Confirmed Type Budesonide-Formot 160-4.5 Mcg 2 puff INHALATION RT-BID 11/13/15 06/10/24 History [Symbicort 160-4.5 Mcg Inhaler] Ergocalciferol [Vitamin D2 50,000 unit PO DIRECTED 11/13/15 06/10/24 History (DRISDOL)] Rivaroxaban [Xarelto] 20 mg PO HS 11/13/15 06/10/24 History Tiotropium [place] [Spiriva] 1 cap INHALATION BID 11/13/15 06/10/24 History Atorvastatin Calcium [Lipitor] 80 mg PO HS #30 tablet 09/22/18 06/10/24 Rx Albuterol Sulfate [Ventolin HFA] 1 - 2 puff INHALATION RT-Q6H PRN 07/12/19 06/10/24 History Famotidine [Pepcid] 20 mg PO Q12HR 01/11/20 06/10/24 History Levothyroxine Sodium 250 mcg PO MOWEFR 01/11/20 06/10/24 History Levothyroxine Sodium 125 mcg PO SUTUTHSA 10/11/20 06/10/24 History Ticagrelor [Brilinta] 90 mg PO DAILY 10/11/20 06/10/24 History Cyclobenzaprine [Flexeril] 5 mg PO TID PRN #15 tablet 06/10/22 06/10/24 Rx Finerenone [Kerendia] 10 mg PO DAILY 06/10/24 06/10/24 History Allergies Allergy/AdvReac Type Severity Reaction Status Date / Time ciprofloxacin Allergy Swelling-from Verified 06/10/24 08:34 eye cream tobramycin Allergy Swelling Verified 06/10/24 08:34 from eye drops
[2024-06-11 10:05] VITALS: TEMP 97.8
[2024-06-11] MEDS: IV FLUID CONTINUATION 1,000 ML IV ONE (10:11)
[2024-06-11] MEDS: LACTATED RINGERS 1,000 ML BAG IV STA (10:13)
[2024-06-11] MEDS ORDERED: PROPOFOL 10 MG/ML 20 ML VIAL IV ONE (10:32)
[2024-06-11] MEDS ORDERED: LIDOCAINE 1% INJ 10MG/ML (20 ML MDV) ONE (10:32)
[2024-06-11 11:16] VITALS: RESP 16
--- NOTE | 2024-06-11 11:17 | P.PCN ---
Date of Procedure: 06/11/24 Description of Procedure: PREOPERATIVE DIAGNOSIS: Personal history of colon polyps Colonoscopy screening POSTOPERATIVE DIAGNOSIS: Tubular adenoma hepatic flexure Tubular adenoma transverse colon Sigmoid diverticulosis Internal hemorrhoids, grade 2 OPERATION: Colonoscopy to the ileocecal valve and appendiceal orifice, cecum Colonoscopy with cold forceps biopsy SURGEON: Catina Noel MD. ANESTHESIA: MAC. INDICATIONS: The patient is an 74-year-old female who presents personal history of colon polyps. Last colonoscopy 5 years. Benefits and risks were described and informed consent was obtained. DESCRIPTION OF PROCEDURE: The patient had undergone GoLytely prep. The patient had been brought into the operating room and laid in the left lateral decubitus position. After adequate intravenous sedation, the rectum was examined with 2% lidocaine jelly. External hemorrhoids were encountered. The rectal tone was within normal limits. No lesions were palpated in the rectal vault. An Olympus colonoscope was advanced until the cecum, ileocecal valve and appendiceal orifice were clearly viewed. The prep was fair. No large sigmoid diverticulosis was encountered. Colonic polyps were found and removed. No evidence of focal colitis was found. Retroflexion of the scope demonstrated grade 2 internal hemorrhoids without active bleeding or inflammation. The colon was desufflated. The patient had tolerated the procedure well. Withdrawal time was over 6 minutes. FINDINGS: Aronchick preparation quality scale 3+ (1-5) with scattered semisolid stool Internal hemorrhoids, grade 2 External hemorrhoids, grade 2. No arteriovenous malformations. No large sigmoid diverticulosis Removal of 2 polyps: - Cold forceps biopsy at mid transverse colon, 5 mm adenoma - Cold forceps biopsy at proximal hepatic, 4 mm adenoma No focal colitis. RECOMMENDATIONS: Repeat colonoscopy 2 years, 2025 Due to semisolid stool obscuring mucosa, recommend 2-day prep Plan - Discharge Summary Discharge Rx Participant: No New Discharge Prescriptions: Continue Rivaroxaban [Xarelto] 20 mg PO HS Budesonide-Formot 160-4.5 Mcg [Symbicort 160-4.5 Mcg Inhaler] 2 puff INHALATION RT-BID Ergocalciferol [Vitamin D2 (DRISDOL)] 50,000 unit PO DIRECTED Tiotropium [place] [Spiriva] 1 cap INHALATION BID Atorvastatin Calcium [Lipitor] 80 mg PO HS #30 tablet Albuterol Sulfate [Ventolin HFA] 1 - 2 puff INHALATION RT-Q6H PRN PRN Reason: Shortness Of Breath Famotidine [Pepcid] 20 mg PO Q12HR Levothyroxine Sodium 250 mcg PO MOWE Ticagrelor [Brilinta] 90 mg PO DAILY Levothyroxine Sodium 125 mcg PO SUTUTHSA Cyclobenzaprine [Flexeril] 5 mg PO TID PRN #15 tablet PRN Reason: Muscle Spasm Finerenone [Kerendia] 10 mg PO DAILY Discharge Medication List Budesonide-Formot 160-4.5 Mcg [Symbicort 160-4.5 Mcg Inhaler] 2 puff INHALATION RT-BID 11/13/15 [History] Ergocalciferol [Vitamin D2 (DRISDOL)] 50,000 unit PO DIRECTED 11/13/15 [History] Rivaroxaban [Xarelto] 20 mg PO HS 11/13/15 [History] Tiotropium [place] [Spiriva] 1 cap INHALATION BID 11/13/15 [History] Atorvastatin Calcium [Lipitor] 80 mg PO HS #30 tablet 09/22/18 [Rx] Albuterol Sulfate [Ventolin HFA] 1 - 2 puff INHALATION RT-Q6H PRN 07/12/19 [History] Famotidine [Pepcid] 20 mg PO Q12HR 01/11/20 [History] Levothyroxine Sodium 250 mcg PO MOWEFR 01/11/20 [History] Levothyroxine Sodium 125 mcg PO SUTUTHSA 10/11/20 [History] Ticagrelor [Brilinta] 90 mg PO DAILY 10/11/20 [History] Cyclobenzaprine [Flexeril] 5 mg PO TID PRN #15 tablet 06/10/22 [Rx] Finerenone [Kerendia] 10 mg PO DAILY 06/10/24 [History] Follow up Appointment(s)/Referral(s): Catina Noel MD [STAFF PHYSICIAN] - As Needed Patient Instructions/Handouts: Colorectal Polyps (GEN) Activity/Diet/Wound Care/Special Instructions: START BLOOD THINNER SaturdayJUN 15 Recommend 2-day prep, repeat colonoscopy 2025 Discharge Disposition: HOME SELF-CARE
[2024-06-11 11:30] VITALS: BP 138/64; PULSE 53
== END 2024-06-11 12:03 | disposition home or self-care (01) ==
LOC: ORWHC2ENDO 09:20
PROVIDERS: ATTEND Surgery Plastic and Reconstructive Surgery
DX: Z86.010 Personal history of colon polyps
CPT/HCPCS: 45380; 88305

== ENCOUNTER 2024-07-25 10:24 | Emergency (ER) | payer MEDICARE ==
[2024-07-25 10:50] VITALS: RESP 20
--- NOTE | 2024-07-25 10:56 | ED ---
Upper Extremity HPI - General Chief Complaint: Extremity Injury, Upper Stated Complaint: fell L wrist injury Time Seen by Provider: 07/25/24 10:55 Source: patient, RN notes reviewed Mode of arrival: ambulatory Limitations: no limitations - History of Present Illness Initial Comments: 74-year-old female presenting to the ER with a chief complaint of left wrist injury. Patient states she accidentally slipped after mopping the floor causing her to fall. She reports she braced her fall on the wall but landed on her left wrist. She is endorseing pain over base of thumb and wrist. No paresthesias. She denies any head injury or loss of consciousness. No other injuries or complaints. - Related Data Home Medications Medication Instructions Recorded Confirmed Budesonide-Formot 160-4.5 Mcg 2 puff INHALATION RT-BID 11/13/15 06/11/24 [Symbicort 160-4.5 Mcg Inhaler] Ergocalciferol [Vitamin D2 50,000 unit PO DIRECTED 11/13/15 06/11/24 (DRISDOL)] Rivaroxaban [Xarelto] 20 mg PO HS 11/13/15 06/11/24 Tiotropium [place] [Spiriva] 1 cap INHALATION BID 11/13/15 06/11/24 Albuterol Sulfate [Ventolin HFA] 1 - 2 puff INHALATION RT-Q6H PRN 07/12/19 06/11/24 Famotidine [Pepcid] 20 mg PO Q12HR 01/11/20 06/11/24 Levothyroxine Sodium 250 mcg PO MOWEFR 01/11/20 06/11/24 Levothyroxine Sodium 125 mcg PO SUTUTHSA 10/11/20 06/11/24 Ticagrelor [Brilinta] 90 mg PO DAILY 10/11/20 06/11/24 Finerenone [Kerendia] 10 mg PO DAILY 06/10/24 06/11/24 Previous Rx's Medication Instructions Recorded Atorvastatin Calcium [Lipitor] 80 mg PO HS #30 tablet 09/22/18 Cyclobenzaprine [Flexeril] 5 mg PO TID PRN #15 tablet 06/10/22 Allergies Allergy/AdvReac Type Severity Reaction Status Date / Time ciprofloxacin Allergy Swelling-from Verified 07/25/24 10:50 eye cream tobramycin Allergy Swelling Verified 07/25/24 10:50 from eye drops Review of Systems ROS Statement: Those systems with pertinent positive or pertinent negative responses have been documented in the HPI. ROS Other: All systems not noted in ROS Statement are negative. Past Medical History Past Medical History: Coronary Artery Disease (CAD), COPD, Deep Vein Thrombosis (DVT), Hyperlipidemia, Hypertension, Sleep Apnea/CPAP/BIPAP, Thyroid Disorder Additional Past Medical History / Comment(s): Hx left leg dvt, no CPAP use., started taking synthroid as a child. Hx. of being prone to blood clots. States L carotid blockage in 2013. Has a stent. Stage 3 kidney failure. 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 Right arm surgery. Stents left carotid. D&C's. Colonoscopy. States has 2 stents. Past Anesthesia/Blood Transfusion Reactions: Motion Sickness Past Psychological History: No Psychological Hx Reported Smoking Status: Current some day smoker, Former smoker Past Alcohol Use History: None Reported Past Drug Use History: None Reported - Past Family History Father Family Medical History: No Reported History Additional Family Medical History / Comment(s): Father of suicide. Mother Additional Family Medical History / Comment(s): Mother with high sugar "insulin stroke" emergency without prior known history. HX POLYPS General Exam - General Exam Comments Initial Comments: Visual Physical Exam Vital signs reviewed General: Well-appearing, nontoxic, no acute distress. Head: Normocephalic, atraumatic Eyes: PERRLA, EOMI ENT: Airway patent Chest: Nonlabored breathing Skin: No visual rash, normal skin tone Neuro: Alert and oriented 3 Musculoskeletal: No gross abnormalities Limitations: no limitations General appearance: alert, in no apparent distress Respiratory exam: Present: normal lung sounds bilaterally. Absent: respiratory distress, wheezes, rales, rhonchi, stridor Cardiovascular Exam: Present: regular rate, normal rhythm, normal heart sounds. Absent: systolic murmur, diastolic murmur, rubs, gallop, clicks Extremities exam: Present: tenderness (Left anatomical snuffbox tenderness with overlying edema and ecchymosis. Full range of motion of left digits . 2+ left radial pulse. Sensation intact. ), normal capillary refill Neurological exam: Present: alert, oriented X3, CN II-XII intact Skin exam: Present: warm, dry, intact, normal color. Absent: rash Course Vital Signs 07/25/24 07/25/24 10:48 12:16 Temperature 98 F 98.1 F Pulse Rate 60 61 Respiratory 20 20 Rate Blood Pressure 164/68 128/75 O2 Sat by Pulse 97 100 Oximetry Procedures - Orthopedic Splinting/Casting Injury #1 Side: left Upper Extremity Injury Location: wrist Upper Extremity Immobilizer: sugar tong splint Medical Decision Making - Medical Decision Making I performed the quick note portion of this chart. Electronically signed by Ty Stafford PA-C Was pt. sent in by a medical professional or institution ([facility] Sy, DESIGN ENG, urgent care, hospital, or residential...) When possible be specific @ -No Did you speak to anyone other than the patient for history (EMS, parent, family, police, friend...)? What history was obtained from this source @ -No Did you review nursing and triage notes (agree or disagree)? Why? @ -I reviewed and agree with nursing and triage notes Were old charts reviewed (outside hosp., previous admission, EMS record, old EKG, old radiological studies, urgent care reports/EKG's, residential records)? Report findings @ -No old charts were reviewed Differential Diagnosis (chest pain, altered mental status, abdominal pain women, abdominal pain men, vaginal bleeding, weakness, fever, dyspnea, syncope, headache, dizziness, GI bleed, back pain, seizure, CVA, palpatations, mental health, musculoskeletal)? @ -Differential Musculoskeletal: Muscular strain, contusion, ligament sprain, fracture, arthritis, septic arthritis, bursitis, cellulitis, muscle spasm, nerve compression, DVT, arterial occlusion, herpes zoster, electrolyte abnormality, tumor.... This is not meant to be in all inclusive list EKG interpreted by me (3pts min.). @ -None done X-rays interpreted by me (1pt min.). @ -Left wrist x-ray interpreted by me negative for acute osseous process. CT interpreted by me (1pt min.). @ -None done U/S interpreted by me (1pt. min.). @ -None done What testing was considered but not performed or refused? (CT, X-rays, U/S, labs)? Why? @ -None What meds were considered but not given or refused? Why? @ -None Did you discuss the management of the patient with other professionals (professionals i.e. , PA, DESIGN ENG, lab, RT, psych nurse, social work administrator, gang vibrator operator, teacher, aoc plans intelligence officer, telephonic nurse case manager)? Give summary @ -No Was smoking cessation discussed for >3mins.? @ -No Was critical care preformed (if so, how long)? @ -No Were there social determinants of health that impacted care today? How? (Homelessness, low income, unemployed, alcoholism, drug addiction, transportation, low edu. Level, literacy, decrease access to med. care, snf, rehab)? @ -No Was there de-escalation of care discussed even if they declined (Discuss DNR or withdrawal of care, Hospice)? DNR status @ -No What co-morbidities impacted this encounter? (DM, HTN, Smoking, COPD, CAD, Cancer, CVA, ARF, Chemo, Hep., AIDS, mental health diagnosis, sleep apnea, morbid obesity)? @ -None Was patient admitted / discharged? Hospital course, mention meds given and route, prescriptions, significant lab abnormalities, going to OR and other pertinent info. @ -Discharge. 74-year-old female presented to the ER with a chief complaint of left wrist injury status post fall. History and physical exam completed. Vital stable. Patient in no signs of acute distress. Left upper extremity neurovascular intact. There is left anatomical snuffbox tenderness with overlying edema and ecchymosis. Patient has full range of motion. No other reported injuries. X-rays obtained negative for acute osseous process. Due to anatomical snuffbox tenderness and concern of occult fracture patient placed in a sugar-tong splint, see note above. Patient discharged with Tylenol 3 starter pack for outpatient pain management. Advise close follow-up with orthopedics, referral given. Strict return parameters discussed. Patient discharged in stable condition with follow-up to PCP. Patient verbally expressed understanding and agreement with care plan. Case discussed with ED attending, Dr. Zhou. Undiagnosed new problem with uncertain prognosis? @ -No Drug Therapy requiring intensive monitoring for toxicity (Heparin, Nitro, Insulin, Cardizem)? @ -No Were any procedures done? @ -Yes Diagnosis/symptom? @ -Wrist injury Acute, or Chronic, or Acute on Chronic? @ -Acute Uncomplicated (without systemic symptoms) or Complicated (systemic symptoms)? @ -Uncomplicated Side effects of treatment? @ -No Exacerbation, Progression, or Severe Exacerbation? @ -No Poses a threat to life or bodily function? How? (Chest pain, [place], [place], pneumonia, PE, COPD, DKA, ARF, appy, cholecystitis, CVA, Diverticulitis, Homicidal, Suicidal, threat to staff... and all critical care pts) @ -No - Radiology Data Radiology results: report reviewed, image reviewed Disposition Clinical Impression: Wrist injury Disposition: HOME SELF-CARE Condition: Stable Instructions (If sedation given, give patient instructions): Wrist Injury (ED) Additional Instructions: Continue with [id number] ibuprofen and Tylenol for symptom control. Follow-up with orthopedics. Return to the ER for new or worsening concerns. Is patient prescribed a controlled substance at d/c from ED?: No Referrals: Yuriy Toscano DO [Primary Care Provider] - 1-2 days Jeffrey Muñoz MD [STAFF PHYSICIAN] - 1-2 days Time of Disposition: 11:40
--- NOTE | 2024-07-25 11:14 | XR ---
Left wrist. HISTORY: Pain following injury. COMPARISON: None. TECHNIQUE: 3 4 views left wrist are obtained. FINDINGS: There is an there is no fracture or dislocation or focal intraosseous abnormality. There is mild scapholunate dissociation and a negative ulnar variance. There is mild calcification in the region of the scapholunate ligaments. IMPRESSION: 1. No evidence of acute trauma. 2. Mild changes of a [facility] wrist [facility], , 07/25/2024 11:12 AM
[2024-07-25 12:17] VITALS: BP 128/75; PULSE 61; TEMP 98.1
[2024-07-25] MEDS: ACET/COD 300 MG/30 MG STARTER PACK 6 TAB BTL PO STA (12:17)
== END 2024-07-25 12:17 | disposition home or self-care (01) ==
LOC: EC 10:24
DX: S60.212A Contusion of left wrist, initial encounter (principal); F17.200 Nicotine dependence, unspecified, uncomplicated; Z88.1 Allergy status to other antibiotic agents; W01.0XXA Fall on same level from slipping, tripping and stumbling without subsequent striking against object, initial encounter; Y93.E5 Activity, floor mopping and cleaning
CPT/HCPCS: 29125; 99283

== ENCOUNTER → 2024-08-21 | Outpatient (CLI) | payer MEDICARE ==
--- NOTE | 2024-08-21 09:41 | US ---
EXAMINATION TYPE: US venous doppler duplex LE LT DATE OF EXAM: 08/21/2024 8:52 AM COMPARISON: US 2018 CLINICAL INDICATION: Female, 74 years old with history of R22.42 SWELLING, MASS AND LUMP, LEFT LOWER LIMB; Patient on 2 blood thinners, Pain TECHNIQUE: The lower extremity deep venous system is examined utilizing real time linear array sonog master with graded compression, color doppler sonography, and spectral doppler. SIDE PERFORMED: Left FINDINGS: VESSELS IMAGED: Common Femoral Vein Deep Femoral Vein Greater Saphenous Vein * Femoral Vein Popliteal Vein Small Saphenous Vein * Proximal Calf Veins (* superficial vessels) Left Leg: Appears negative for DVT Scanned left mary at patient's area of concern - thrombus seen within superficial vessel IMPRESSION: No ultrasound evidence for deep venous thrombosis. [facility], , 08/21/2024 9:39 AM
== END | disposition home or self-care (01) ==
LOC: RADUSWWP 08:02
PROVIDERS: ATTEND Family Medicine
DX: R22.42 Localized swelling, mass and lump, left lower limb (principal)